=== PATIENT | male | born 1950 | race African-American/Black ===

== ENCOUNTER 2017-01-20 12:23 | Inpatient (IN) ==
[2017-01-20] MEDS ORDERED: LEVOFLOXACIN INJ 750 MG in PREMIX 1 EACH IV STA (12:54)
[2017-01-20] MEDS ORDERED: ALBUTEROL/IPRATROPIUM 3 ML NEB RESP TX STA (12:54)
[2017-01-20] MEDS ORDERED: ONDANSETRON 4 MG/2 ML VIAL IV STA (12:54)
[2017-01-20] MEDS ORDERED: methylPREDNISolone SOD SUC 40 MG/1 ML VIAL IM STA (12:54)
[2017-01-20] MEDS ORDERED: METOCLOPRAMIDE 10 MG/2 ML VIAL IV STA (12:54)
--- NOTE | 2017-01-20 13:01 | EKG Report ---
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
[2017-01-20] MEDS ORDERED: DILTIAZEM 50 MG/10 ML VIAL IV STA (13:06)
--- NOTE | 2017-01-20 13:09 | Emergency Department Note ---
Arrival - Arrival Stated Complaint: role out [facility] ED Nursing Triage Note: C/O HAVING COUGHING AND CONGESTION X 7 DAYS., STATES WAS EVALUATED BY ESTUARDO LAST EVENING AND WAS GIVEN LASIX IN THE OFFICE., STATES THE DIALYSIS NURSE TOLD HER TODAY THAT HE MAY HAVING PNEUMONIA ., + PRODUCTIVE COUGH, CURRENTLY BEING TX FOR LEFT EYE INFECTION Mode of Arrival: Wheelchair Time Seen by Provider: 01/20/17 12:54 - History of Present Illness HPI Narrative: This 66-year-old black male presents on referral from the dialysis center after his spin this morning to evaluate for pneumonia. The patient has had 1 week of cough productive of yellow-green sputum associated with intermittent wheezing and spiking temperatures. At dialysis he was noted to have a temperature of 102 and was sent here for further evaluation. He does not complain of any chest pain with this situation but does have some nausea but no vomiting. Currently he appears in no acute medical distress. Onset (ago): week(s) (Patient presents 1 week post onset of symptoms) Allergies/Adverse Reactions: Allergies Allergy/AdvReac Type Severity Reaction Status Date / Time No Known Allergies Allergy Verified 01/20/17 12:35 Home Medications: Home Medications Medication Instructions Recorded Confirmed Type Allopurinol [Zyloprim] 100 mg PO DAILY 12/12/14 02/16/16 History Aspirin [Ecotrin] 81 mg PO DAILY 12/12/14 02/16/16 History Atorvastatin [Lipitor] 40 mg PO DAILY 12/12/14 02/16/16 History Carvedilol [Coreg] 12.5 mg PO BID 12/12/14 02/16/16 History Hydralazine HCl 100 mg PO TID 12/12/14 02/16/16 History Insulin Glargine [Lantus] 40 units SUBCUT QPM 12/12/14 02/16/16 History Sevelamer HCl Tab [Renagel] 2,400 mg PO TID W/MEALS 12/12/14 02/16/16 History Losartan Potassium 100 mg PO DAILY 02/16/16 02/16/16 History cloNIDine TAB [Catapres Tab] 0.2 mg PO TID #90 tablet 02/16/16 Rx hydrOXYzine HCL TAB [Atarax Tab] 25 mg PO TID PRN 02/16/16 02/16/16 History Review of System - Review of System 12 point system: reviewed and no additional remarkable complaints except as stated - Review of System Constitutional: Present: as per HPI Respiratory: Present: as per HPI Gastrointestinal: Present: as per HPI Medical,Surgical,& Family Hx - Medical History Cardio: History of: Cardiac Dysrhythmia, CHF, Hypertension Neurology: History of: Peripheral Neuropathy (feet) No history of: Seizures HEENT: No history of: Dental Problems Comment Only: Eye Problem (detached retina) Endocrine: History of: Diabetes Mellitus (IDDM) Rheumatology: History of;: Gout Respiratory: History of: Intubation, Respiratory Problems (SOB) Renal: History of: Renal Failure, Renal Problems (RENAL FAILURE) Gastrointestinal: History of: GI Problems (CONSTIPATION) Hematology: History of: Anemia No history of: Bleeding Problems (FAMILY STATES BLEEDS DURING DIALYSIS) - Surgical History Cardiac Surgeries: Sugical HX of: Cardiac Catheterization Patient Denies: Cardiac Surgery (2014-09 stents) Neurologic Surgeries: Patient denies: Neurologic Surgery HEENT Surgeries: Surgical HX of: Eye Surgery (CATARACT, LASIC EYE SURGERY) Abdominal Surgeries: Patient denies: Abdominal Surgery, Appendectomy, Cholecystectomy, Colonoscopy , Gastric Bypass Surgery, EGD, Hernia Repair - Family History Family History: Reports;: Family Cancer (SISTER), Family Diabetes (MOTHER, sisters,aunts, nephew), Family Hypertension (MOTHER/FATHER), Family Stroke ( MOTHER/FATHER,) - Social History Smoking Status: Never smoker Frequency of Alcohol Use: None Type of Drug Use: None Exam Physical Examination: GENERAL: Well developed, well nourished black male in no acute distress. HEENT: Normocephalic. No trauma. Moist mucous membranes. EOMI. PERRLA. ENT NML NECK: Supple. No adenopathy. CARDIAC: Irregular. No murmurs. Heart rate 100 CHEST: Clear to auscultation. No respiratory distress. O2 sat 93% ABDOMEN: Soft. Nontender. Active bowel sounds. EXTREMITIES: No trauma. Normal ROM. No pedal edema. Left upper extremity fistula with good thrill. SKIN: No diaphoresis. No rash. NEURO: Alert. Neuro intact. No focal deficits. Vital Signs: Vital Signs Temperature 102.8 F H 01/20/17 12:30 Pulse Rate 111 H 01/20/17 13:46 Respiratory Rate 34 H 01/20/17 13:46 Blood Pressure 159/74 01/20/17 12:30 O2 Sat by Pulse Oximetry 97 01/20/17 13:46 Course - Reevaluation(s) Reevaluation #1: Advised patient need for hospitalization with new onset A. fib and pneumonia - Consultations Consultation #1: Discussed with hospitalist service who will admit for further evaluation treatment. Results - Labs CBC & BMP: 01/20/17 13:06 01/20/17 13:06 Labs: I reviewed the laboratory noted the expected low hematocrit and also noted the bump in troponins and total CK although the patient has elevated creatinine as expected with dialysis dependence. - Impressions EKG: Atrial fibrillation at 100 with right bundle branch block. Diffuse nonspecific ST changes. No acute injury pattern noted. - Diagnostic Findings Procedure: Chest x-ray: image reviewed by me, report reviewed by me (Right perihilar infiltrate) Disposition Clinical Impression: Right perihilar pneumonia, New onset atrial fibrillation Case discussed with: patient, patient's family Disposition: Still a Patient Condition: Guarded Time of Disposition: 14:14
[2017-01-20 13:29] LABS: Basophils % 0.2 % (0.0-0.8); Eosinophils % 0.5 % (0.00-10.9); Hematocrit 34.8 VOL% (42.0-52.0); Hemoglobin 11.9 GM/DL (14.0-18.0); Immature Granulocytes % 0.9 %; Immature Granulocytes Absolute 0.06 #; Lymphocytes # 0.5 10*3/uL (1.4-4.0); Lymphocytes % 8.2 % (21.2-54.2); Mean Corpuscular HGB Conc 34.2 GM/DL (32-36); Mean Corpuscular Hemoglobin 33 PG (27-34); Mean Corpuscular Volume 95.3 FL (87-102); Monocytes # 0.9 10*3/uL (0.11-0.8); Neutrophils # 5.1 10*3/uL (1.4-7.4); Neutrophils % 77.2 % (38.7-73.9); Platelet Count 133 T/CUMM (130-400); Red Blood Count 3.65 MC/CUMM (3.8-5.5); Red Cell Distribution Width 13.2 % (9.3-17.3); White Blood Count 6.6 T/CUMM (4-12)
[2017-01-20] MEDS ORDERED: LEVOFLOXACIN INJ 150 ML IV ONE (13:40)
[2017-01-20] MEDS ORDERED: METOCLOPRAMIDE 10 MG/2 ML VIAL ONE (13:40)
[2017-01-20] MEDS ORDERED: DILTIAZEM 50 MG/10 ML VIAL IV ONE (13:41)
[2017-01-20] MEDS ORDERED: methylPREDNISolone SOD SUC 125 MG/2 ML VIAL ONE (13:41)
[2017-01-20] MEDS ORDERED: ONDANSETRON 4 MG/2 ML VIAL ONE (13:41)
[2017-01-20 13:48] LABS: Platelet Estimate Adequate
[2017-01-20 13:49] LABS: Alanine Aminotransferase 22 U/L (16-61); Albumin 4.1 G/DL (3.4-5.0); Alkaline Phosphatase 238 U/L (45-117); Aspartate Amino Transferase 29 U/L (0-37); Blood Urea Nitrogen 21 MG/DL (7-18); Calcium 8.3 MG/DL (8.5-10.1); Glucose 50 MG/DL (74-106); Osmolality,Calculated 269.1 MOS/KG (273-304); Potassium 3.9 MMOL/L (3.5-5.1); Sodium 135 MMOL/L (136-145)
[2017-01-20 13:53] LABS: Free T4 (Free Thyroxine) 1.3 NG/DL (0.76-1.46); Thyroid Stimulating Hormone 0.591 uIU/ml (0.358-3.74)
[2017-01-20 13:58] LABS: Troponin I Only 0.231 NG/ML (0.00-0.045)
[2017-01-20] MEDS ORDERED: ACETAMINOPHEN 500 MG TABLET PO STA (14:08)
[2017-01-20] MEDS ORDERED: ACETAMINOPHEN 500 MG TABLET ONE (14:08)
--- NOTE | 2017-01-20 14:26 | Hospitalist History & Physical ---
<Melissa Rawlsda - Last Filed: 01/20/17 15:15> Assessment and Plan (1) Pneumonia Status: Acute Assessment and plan: Blood cultures have been obtained; will continue empiric antibiotics. Will re- check CXR in AM. Will start inhaled bronchodilators per nebulizer. Current Visit: Yes Qualifiers: Pneumonia type: due to unspecified organism Laterality: right Lung location: unspecified part of lung Qualified Code(s): J18.9 - Pneumonia, unspecified organism (2) Atrial fibrillation, new onset Status: Acute Assessment and plan: This is new in nature; none of his previous visit reflect this finding. His rate is controlled currently; however his troponin levels are elevated at 0.231. We will obtain serial enzymes. We will consult Cardiology to assist. Current Visit: Yes (3) Contusion/hemorrhage eye Status: Acute Assessment and plan: The patient reported that he sustained this injury on . He reports that he was evaluated by his eye doctor and told that it was "okay". Because the patient reports that he did strike his head and the gross appearance of his left eye, I will obtain CT of heat for good measures. Current Visit: Yes (4) ESRD (end stage renal disease) on dialysis Problem details: Usual schedule //. Status: Chronic Assessment and plan: HD earlier today; the patient reports completion. We will consult nephrology; Dr. Naranjo is his gem technician; he is on-call today. Current Visit: No (5) Insulin dependent diabetes mellitus Status: Acute Assessment and plan: Blood glucose was noted 50 at the time of ED arrival; will obtain HGA1C and start accuchecks with sliding scale coverage. Current Visit: Yes (6) Troponin I above reference range Status: Acute Assessment and plan: Troponin noted at 0.231; will obtain serial troponins x3. Will consult cardiology to evaluate. Current Visit: Yes History of Present Illness Chief complaint: cough and fever History of present illness: This is a very pleasant 66 year old male that presented to ED this afternoon for evaluation of cough and fever. The patient has a rather impressive medical history significant for hypertension, end-stage renal disease, congestive heart failure, peripheral neuropathy, gouty arthritis, anemia, constipation, and insulin-dependent diabetes mellitus. He has a surgical history significant for cataract removal and cardiac catheterization. The patient reported the onset of the above symptoms one week prior to presentation; with gradual worsening of symptoms. Today during his hemodialysis treatment, the nursing staff observed him coughing thick copious sputum green in color;at the conclusion of the treatment. The staff became concerned about his frequency and severity of his cough and advised him to present to the ED for further evaluation. Upon arrival to the ED, the patient was noted to febrile with a temperature of 102.8 and blood cultures were obtained. He was placed on the ct tech and was noted to be in atrial fibrillation; was acute upon review of previous medical records. Labs were obtained; which revealed a sodium level of 135, chloride level of 91, carbon dioxide of 34, BUN of 21, creatinine of 4.70, and glucose of 50. Cardiac enzymes were obtained which revealed a troponin of 0.231 and total CK of 362. Chest radiograph was obtained which revealed right perihilar infiltrate. In addition, the patient was noted to have gross erythema to his left eye, in which he attributed to a recent fall on . He reported that he tripped in his home; striking the left side of his head and eye on the end of a table. After brief discussion with both Dr. Campbell and Dr. Valdez, the patient will be admitted to the hospitalist service for continuation of care. We will consult Dr. Naranjo and Dr. Arthur, patient is known to both them. The patient's PCP is Dr. Tamayo in [place]. Home Medications Medication Instructions Recorded Confirmed Type Allopurinol [Zyloprim] 100 mg PO DAILY 12/12/14 01/20/17 History Aspirin [Ecotrin] 81 mg PO DAILY 12/12/14 01/20/17 History Atorvastatin [Lipitor] 40 mg PO DAILY 12/12/14 01/20/17 History Carvedilol [Coreg] 12.5 mg PO BID 12/12/14 01/20/17 History Insulin Glargine [Lantus] 40 units SUBCUT QPM 12/12/14 01/20/17 History Losartan Potassium 100 mg PO DAILY 02/16/16 01/20/17 History Cinacalcet [Sensipar] 30 mg PO DAILY 01/20/17 01/20/17 History NIFEdipine [Nifedipine ER] 60 mg PO DAILY 01/20/17 01/20/17 History Sevelamer Carbonate Tab [Renvela 2,400 mg PO TID 01/20/17 01/20/17 History Tab] Tobramycin/Dexamethasone 1 drop RIGHT EYE QID 01/20/17 01/20/17 History [Tobramycin/Dexamethasone Oph Susp] traZODone [Desyrel] 50 mg PO BEDTIME 01/20/17 01/20/17 History Allergies Allergy/AdvReac Type Severity Reaction Status Date / Time No Known Allergies Allergy Verified 01/20/17 12:35 Medical,Surgical,& Family Hx - Medical History Cardio: History of: Cardiac Dysrhythmia, CHF, Hypertension Neurology: History of: Peripheral Neuropathy (feet) No history of: Seizures HEENT: No history of: Dental Problems Comment Only: Eye Problem (detached retina) Endocrine: History of: Diabetes Mellitus (IDDM) Rheumatology: History of;: Gout Respiratory: History of: Intubation, Respiratory Problems (SOB) Renal: History of: Renal Failure, Renal Problems (RENAL FAILURE) Gastrointestinal: History of: GI Problems (CONSTIPATION) Hematology: History of: Anemia No history of: Bleeding Problems (FAMILY STATES BLEEDS DURING DIALYSIS) - Surgical History Cardiac Surgeries: Sugical HX of: Cardiac Catheterization Patient Denies: Cardiac Surgery (2014-09 stents) Neurologic Surgeries: Patient denies: Neurologic Surgery HEENT Surgeries: Surgical HX of: Eye Surgery (CATARACT, LASIC EYE SURGERY) Abdominal Surgeries: Patient denies: Abdominal Surgery, Appendectomy, Cholecystectomy, Colonoscopy , Gastric Bypass Surgery, EGD, Hernia Repair - Family History Family History: Reports;: Family Cancer (SISTER), Family Diabetes (MOTHER, sisters,aunts, nephew), Family Hypertension (MOTHER/FATHER), Family Stroke ( MOTHER/FATHER,) - Social History Smoking Status: Never smoker Frequency of Alcohol Use: None Type of Drug Use: None Marital Status: Lives With:: Spouse Functional capacity: independent ambulation Exam - Constitutional Vitals: Period Temp Pulse Resp BP Sys/Gao Pulse Ox Last 24 Hr 102.8 F-102.8 F 87-111 24-34 159-159/74-74 71-97 General appearance: normal weight, mild distress - Head Head exam: Present: normal inspection, normocephalic, atraumatic - Eye Eye exam: Present: other (hemorrhage ) Pupils: Present: BERNADETTE - ENT ENT exam: Present: normal exam, normal external ear exam, normal oropharynx - Neck Neck exam: Present: normal inspection, lymphadenopathy, meningismus, thyromegaly - Respiratory Respiratory exam: Present: decreased breath sounds, other - Cardiovascular Cardiovascular exam: Present: irregular rhythm (new onset a-fib ), other (L upper arm AVF +bruit/+thrill) - GI/Abdominal GI/Abdominal exam: Present: normal bowel sounds, soft - Extremities Exam Extremities exam: Present: normal inspection, normal capillary refill, full ROM , other (Left upper arm AVF; +bruit/thril) - Back Exam Back exam: Present: normal inspection - Neurological Exam Neurological exam: Present: alert, oriented X3, CN II-XII intact - Psychiatric Psychiatric exam: Present: normal affect, normal mood - Skin Skin exam: Present: normal color, warm, dry Results - Labs CBC & BMP: 01/20/17 13:06 01/20/17 13:06 Lab Results: I have reviewed the past 24 hour labs <Kalina Valdez - Last Filed: 01/20/17 15:49> Assessment and Plan (1) Atrial fibrillation, new onset Status: Acute Assessment and plan: cont coreg, will add dilt po and cont dilt drip, lovenox 100 mg sq daily Current Visit: Yes (2) Contusion/hemorrhage eye Status: Acute Assessment and plan: head ct shows nothing acute Current Visit: Yes (3) Insulin dependent diabetes mellitus Status: Acute Assessment and plan: hgb a1c, bs low hold scheduled insulin, ISC Current Visit: Yes (4) Pneumonia Status: Acute Assessment and plan: cont levaquin and vancomycin (at risk for MRSA), duonebs and oxygen Current Visit: Yes Qualifiers: Pneumonia type: due to unspecified organism Laterality: right Lung location: unspecified part of lung Qualified Code(s): J18.9 - Pneumonia, unspecified organism (5) Troponin I above reference range Status: Acute Assessment and plan: probably due to strain from new onset afib Current Visit: Yes (6) ESRD (end stage renal disease) on dialysis Problem details: Usual schedule /. Status: Chronic Current Visit: No (7) Hypertension Status: Acute Assessment and plan: cont coreg, will add dilt po Current Visit: Yes (8) Severe sepsis Status: Acute Assessment and plan: blood cx, abx, draw lactic acid. Current Visit: Yes History of Present Illness History of present illness: Mr. Leigh is a 66 year old male seen and examined. History and physical reviewed and edited. - Constitutional Constitutional: Present: fatigue, fever(s). Absent: headache(s) - EENT Eyes: Absent: blurry vision, diplopia Ears: Absent: decreased hearing, ear discharge Nose, mouth and throat: Present: sore throat. Absent: headache(s) - Cardiovascular Cardiovascular: Present: dyspnea, dyspnea on exertion. Absent: chest pain at rest, edema - Respiratory Respiratory: Present: cough, dyspnea, dyspnea on exertion, change in phlegm color - Gastrointestinal Gastrointestinal: Absent: nausea, vomiting - Genitourinary Genitourinary: Absent: difficulty urinating, dysuria - Neurological Neurological: Absent: confusion, headache(s), syncope - Psychiatric Psychiatric: Absent: anxiety, depression - Endocrine Endocrine: Present: fatigue, heat intolerance. Absent: cold intolerance - Hematologic/Lymphatic Hematologic/Lymphatic: Absent: easy bleeding, easy bruising Exam - Constitutional Vitals: Period Temp Pulse Resp BP Sys/Gao Pulse Ox Last 24 Hr 102.8 F-102.8 F 87-111 24-34 159-159/74-74 71-97 - Eye Eye exam: Present: EOMI. Absent: scleral icterus Pupils: Present: normal accommodation - Neurological Exam Neurological exam: Present: reflexes normal. Absent: motor sensory deficit Results - Labs CBC & BMP: 01/20/17 13:06 01/20/17 13:06 - EKG EKG shows: tachycardia, atrial fibrillation - Diagnostic Findings Procedure: Chest x-ray: report reviewed by me (pulmonary edema )
--- NOTE | 2017-01-20 14:50 | XRay Report ---
History: Shortness of breath Date: 01/20/2017 Study: Chest x-ray AP portable Comparison exam: December 12, 2014 There is cardiomegaly. The pulmonary vasculature is slightly prominent. There is no mediastinal mass. There is some mild hazy edema in the lower lungs. There is no gross pleural effusion. Osseous structures are similar. Vascular stents overlie the left axillary vein region. Impression: Cardiomegaly and evidence of CHF with some early bibasilar pulmonary edema PROCEDURE INTERPRETED AT [facility] DEPARTMENT OF RADIOLOGY Final Report Signed by: Dr. Audrey Quezada
[2017-01-20] MEDS ORDERED: VANCOMYCIN INJ 750 MG in SODIUM CHLORIDE 0.9% 250 ML IV PRN (15:00)
[2017-01-20] MEDS ORDERED: DEXTROSE 50% 25 GM/50 ML VIAL IV ONE (15:19)
[2017-01-20] MEDS ORDERED: ALBUTEROL 2.5 MG/3 ML NEB RESP TX PRN (15:31)
[2017-01-20] MEDS ORDERED: DEXTROSE 50% 25 GM/50 ML VIAL IV PRN ×3 (15:33→16:09)
[2017-01-20] MEDS ORDERED: GLUCAGON 1 MG VIAL IM PRN ×3 (15:33→16:09)
--- NOTE | 2017-01-20 15:37 | CT Report ---
History: Recent fall with left eye injury Date: 01/20/2017 Study: CT head without contrast Comparison exam: May 30, [address] sections were obtained through the head without IV contrast. This CT exam was performed using one or more the following dose reduction techniques: Automated exposure control, adjustment of the MA and/or KV according to patient size, or use of iterative reconstruction technique. The ventricles are midline in position. There is some mild prominence of all ventricles which may be related to central atrophy, though normal pressure hydrocephalus would also be included in the differential diagnosis. This is fairly similar or only mildly increased compared to the May 30, 2012 study. There is no mass effect or parenchymal hemorrhage. There is no gross CT evidence of acute cortical stroke. There is a mild to moderate amount of ill-defined low density in the periventricular white matter without mass effect compatible with changes of small vessel disease. There is a small area of chronic lacunar infarction in the michel centrally. There is no extra-axial hematoma. There is moderate mucosal thickening in the ethmoid air cells and mild mucosal thickening in the sphenoid sinuses. There is a moderate amount of sinus disease, mucosal thickening with or without fluid, in the left maxillary sinus with mild changes in the right. Impression: Mild ventricular prominence may be related to central atrophy rather than normal pressure hydrocephalus. This has not dramatically changed since 2011. Chronic ischemic changes. No definite acute intracranial process. Sinus disease which may have chronic and acute components PROCEDURE INTERPRETED AT [facility] DEPARTMENT OF RADIOLOGY Final Report Signed by: Dr. Audrey Quezada
[2017-01-20] MEDS ORDERED: LEVOFLOXACIN INJ 750 MG in PREMIX 1 EACH IV SCH (16:00)
[2017-01-20] MEDS ORDERED: ACETAMINOPHEN 325 MG TABLET PO PRN (16:09)
[2017-01-20] MEDS ORDERED: ZALEPLON 5 MG CAPSULE PO PRN (16:09)
[2017-01-20] MEDS ORDERED: ONDANSETRON 4 MG/2 ML VIAL IV PRN (16:09)
[2017-01-20] MEDS ORDERED: INSULIN REGULAR 100 UNIT/ML SUBCUT SCH (16:30)
[2017-01-20] MEDS: INSULIN LISPRO 100 UNIT/ML SUBCUT SCH ×2 (16:37→20:53)
[2017-01-20] MEDS: ENOXAPARIN 100 MG/ML SYRINGE SUBCUT SCH (17:00)
[2017-01-20] MEDS: DILTIAZEM CD 120 MG CAPSULE PO SCH (17:00)
[2017-01-20] MEDS ORDERED: VANCOMYCIN INJ 1,500 MG in SODIUM CHLORIDE 0.9% 500 ML IV ONE (17:00)
[2017-01-20] MEDS: PANTOPRAZOLE 40 MG TABLET PO SCH (17:00)
[2017-01-20 17:21] LABS: Thyroid Stimulating Hormone 0.833 uIU/ml (0.358-3.74)
--- NOTE | 2017-01-20 18:44 | Cardiology Consult Note ---
Assessment and Plan (1) Pneumonia Status: Acute Current Visit: Yes Qualifiers: Pneumonia type: due to unspecified organism Laterality: right Lung location: unspecified part of lung Qualified Code(s): J18.9 - Pneumonia, unspecified organism (2) Atrial fibrillation, new onset Status: Acute Current Visit: Yes (3) ESRD (end stage renal disease) on dialysis Problem details: Usual schedule //. Status: Chronic Current Visit: No (4) Contusion/hemorrhage eye Status: Acute Current Visit: Yes (5) Insulin dependent diabetes mellitus Status: Chronic Current Visit: Yes (6) Troponin I above reference range Status: Chronic Current Visit: Yes (7) Hypertension Status: Chronic Current Visit: Yes (8) Pulmonary hypertension Status: Chronic Current Visit: Yes History of Present Illness - Data of Consult Patient: known to practice within the last 3 years Consult date: 01/20/17 Requesting Physician: Kalina Valdez - Consult Narrative Reason for consult: A. 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 Arthur Mr. Leigh is a 66 year old male without a history of coronary artery disease, end-stage renal disease on hemodialysis, hypertension. Possibly a history of cardiomyopathy. Last reports from Dr. Arthur, including a heart catheterization last year describe a normal systolic function. He was evaluated with left and right heart catheterization for pulmonary hypertension. This was in preparation for possible renal transplantation. The patient was basically admitted for pneumonia. He had been experiencing increasing dyspnea, cough, chills. His cough is productive of a dark, rees sputum. Upon admission he was found to be in atrial fibrillation with rapid ventricular response. He has no documentation of this arrhythmia, does not take anticoagulation. He has no awareness of palpitations or irregularities. He denies experiencing any chest pain. He has chronic stable 1-2 pillow orthopnea. Other than this illness, he has not had any other recent acute illnesses. He does not have gait instability, history of peptic ulcer disease or GI bleeding. He did recently fall when he got up in the middle of the night and hit his left eye, he has some scleral hemorrhage from this. Impression and plan: 1. Pneumonia-being treated by the hospitalist service. 2. Atrial fibrillation with rapid ventricular response-he is currently rate controlled. The duration and chronicity are unknown. He is being anticoagulated. We will need to watch his left eye on this anticoagulation. Likely he will need this anticoagulation long-term. 3. End-stage renal disease-on chronic hemodialysis. 4. Abnormal cardiac biomarkers-this is chronic, these are lower than normal for him. 5. Hypertension 6. Hyperlipidemia 7. Pulmonary hypertension CC: Kalina Valdez MD - Home Medications and Allergies Home Medications: Home Medications Medication Instructions Recorded Confirmed Type Allopurinol [Zyloprim] 100 mg PO DAILY 12/12/14 01/20/17 History Aspirin [Ecotrin] 81 mg PO DAILY 12/12/14 01/20/17 History Atorvastatin [Lipitor] 40 mg PO DAILY 12/12/14 01/20/17 History Carvedilol [Coreg] 12.5 mg PO BID 12/12/14 01/20/17 History Insulin Glargine [Lantus] 40 units SUBCUT QPM 12/12/14 01/20/17 History Losartan Potassium 100 mg PO DAILY 02/16/16 01/20/17 History Cinacalcet [Sensipar] 30 mg PO DAILY 01/20/17 01/20/17 History NIFEdipine [Nifedipine ER] 60 mg PO DAILY 01/20/17 01/20/17 History Sevelamer Carbonate Tab [Renvela 2,400 mg PO TID 01/20/17 01/20/17 History Tab] Tobramycin/Dexamethasone 1 drop RIGHT EYE QID 01/20/17 01/20/17 History [Tobramycin/Dexamethasone Oph Susp] traZODone [Desyrel] 50 mg PO BEDTIME 01/20/17 01/20/17 History Allergies/Adverse Reactions: Allergies Allergy/AdvReac Type Severity Reaction Status Date / Time No Known Allergies Allergy Verified 01/20/17 12:35 12 point system: reviewed and no additional remarkable complaints except as stated Medical,Surgical,& Family Hx - Medical History Cardio: History of: Cardiac Dysrhythmia, CHF, Hypertension Neurology: History of: Peripheral Neuropathy (feet) No history of: Seizures HEENT: No history of: Dental Problems Comment Only: Eye Problem (detached retina) Endocrine: History of: Diabetes Mellitus (IDDM), Dyslipidemia, Thyroid Disorder Rheumatology: History of;: Gout Respiratory: History of: Intubation, Respiratory Problems (SOB) Renal: History of: Dialysis (TTS in [place]), Renal Failure, Renal Problems ( RENAL FAILURE) Gastrointestinal: History of: GI Problems (CONSTIPATION) Hematology: History of: Anemia No history of: Bleeding Problems (FAMILY STATES BLEEDS DURING DIALYSIS) - Surgical History Cardiac Surgeries: Sugical HX of: Cardiac Catheterization Patient Denies: Cardiac Surgery Neurologic Surgeries: Patient denies: Neurologic Surgery HEENT Surgeries: Surgical HX of: Eye Surgery (CATARACT, LASIC EYE SURGERY) Abdominal Surgeries: Patient denies: Abdominal Surgery, Appendectomy, Cholecystectomy, Colonoscopy , Gastric Bypass Surgery, EGD, Hernia Repair - Family History Family History: Reports;: Family Cancer (SISTER), Family Diabetes (MOTHER, sisters,aunts, nephew), Family Hypertension (MOTHER/FATHER), Family Stroke ( MOTHER/FATHER,) - Social History Smoking Status: Never smoker Frequency of Alcohol Use: None Type of Drug Use: None Physical Examination Vital Signs Temp Pulse Resp BP Pulse Ox 102.8 F H 102 H 24 159/74 71 L 01/20/17 12:30 01/20/17 12:30 01/20/17 12:30 01/20/17 12:30 01/20/17 12:30 Other: General appearance: normal weight, no acute distress - Head Head exam: Present: normal inspection, normocephalic, atraumatic. Absent: hematoma, laceration - Eye Eye exam: Present: EOMI. left scleral hemorrhage. Absent: nystagmus, scleral icterus, laceration to eyelids Pupils: Present: PERRL. Absent: constricted, dilated, fixed, irregular, unequal - ENT ENT exam: Present: normal exam, normal external ear exam - Neck Neck exam: Present: normal inspection. Absent: lymphadenopathy, meningismus, tenderness, thyromegaly - Respiratory Respiratory exam: Present: clear to auscultation bilaterally. Absent: accessory muscle use, chest wall tenderness - Cardiovascular Cardiovascular exam: Present: regular rate and rhythm. Absent: carotid bruit, gallop, JVD, rubs - GI/Abdominal GI/Abdominal exam: Present: normal bowel sounds, soft. Absent: distended, firm , guarding, hernia, mass, tenderness, rebound. - Extremities Exam Extremities exam: Present: 1+ bilateral lower extremity edema. Absent: calf tenderness - Back Exam Back exam: Present: normal inspection. Absent: muscle spasm, vertebral tenderness - Neurological Exam Neurological exam: Present: alert, oriented X3, grossly intact without resting or intention tremor - Psychiatric Psychiatric exam: Present: normal affect, normal mood - Skin Skin exam: Present: normal color, warm, dry, intact. Absent: cyanosis, diaphoretic, rash, urticaria Result/EKG - Labs CBC & BMP: 01/20/17 13:06 01/20/17 13:06 Lab Results: I have reviewed the past 24 hour labs Labs: Laboratory Results - last 24 hr 01/20/17 01/20/17 01/20/17 13:06 13:06 13:06 WBC 6.6 RBC 3.65 L Hgb 11.9 L Hct 34.8 L MCV 95.3 MCH 33 MCHC 34.2 RDW 13.2 Plt Count 133 MPV 11.0 Neut % (Auto) 77.2 H Lymph % (Auto) 8.2 L [place] % (Auto) 13.0 H Eos % (Auto) 0.5 Baso % (Auto) 0.2 Neut # (Auto) 5.1 Lymph # (Auto) 0.5 L [place] # (Auto) 0.9 H Eos # (Auto) 0.0 Baso # (Auto) 0.0 Immature Gran % 0.9 Nucleated RBC % 0.0 Immature Gran # 0.06 Nucleated RBCs # 0.00 Platelet Estimate Adequate Morphology Comment Sodium 135 L Potassium 3.9 Chloride 91 L Carbon Dioxide 34 H Anion Gap 13.9 BUN 21 H Creatinine 4.70 H GFR Calculation 17 BUN/Creatinine Ratio 4.00 L Glucose 50 L POC Glucose Hemoglobin A1c Calculated Osmolality 269.1 L Lactic Acid Calcium 8.3 L Magnesium Total Bilirubin 1.20 H AST 29 ALT 22 Alkaline Phosphatase 238 H Total Creatine Kinase 362 H CK-MB (CK-2) 1.1 Troponin I 0.231 H Total Protein 8.0 Albumin 4.1 Globulin 3.9 H Albumin/Globulin Ratio 1.0 L Free T4 1.30 TSH 3rd Generation 0.591 01/20/17 01/20/17 01/20/17 13:06 16:19 16:32 WBC RBC Hgb Hct MCV MCH MCHC RDW Plt Count MPV Neut % (Auto) Lymph % (Auto) [place] % (Auto) Eos % (Auto) Baso % (Auto) Neut # (Auto) Lymph # (Auto) [place] # (Auto) Eos # (Auto) Baso # (Auto) Immature Gran % Nucleated RBC % Immature Gran # Nucleated RBCs # Platelet Estimate Morphology Comment Sodium Potassium Chloride Carbon Dioxide Anion Gap BUN Creatinine GFR Calculation BUN/Creatinine Ratio Glucose POC Glucose 153 H Hemoglobin A1c 8.6 H Calculated Osmolality Lactic Acid 1.1 Calcium Magnesium Total Bilirubin AST ALT Alkaline Phosphatase Total Creatine Kinase CK-MB (CK-2) Troponin I Total Protein Albumin Globulin Albumin/Globulin Ratio Free T4 TSH 3rd Generation 01/20/17 01/20/17 01/20/17 16:33 16:33 16:33 WBC RBC Hgb Hct MCV MCH MCHC RDW Plt Count MPV Neut % (Auto) Lymph % (Auto) [place] % (Auto) Eos % (Auto) Baso % (Auto) Neut # (Auto) Lymph # (Auto) [place] # (Auto) Eos # (Auto) Baso # (Auto) Immature Gran % Nucleated RBC % Immature Gran # Nucleated RBCs # Platelet Estimate Morphology Comment Sodium Potassium Chloride Carbon Dioxide Anion Gap BUN Creatinine GFR Calculation BUN/Creatinine Ratio Glucose POC Glucose Hemoglobin A1c Calculated Osmolality Lactic Acid Calcium Magnesium 2.0 Total Bilirubin AST ALT Alkaline Phosphatase Total Creatine Kinase CK-MB (CK-2) Troponin I 0.318 H D Total Protein Albumin Globulin Albumin/Globulin Ratio Free T4 1.27 TSH 3rd Generation 0.833 - Diagnostic Findings Procedure: Chest x-ray: report reviewed by me - EKG EKG results: interpreted by me EKG shows: atrial fibrillation
[2017-01-20] MEDS: ALBUTEROL/IPRATROPIUM 3 ML NEB RESP TX SCH ×2 (19:04→23:51)
[2017-01-21] MEDS: ALBUTEROL/IPRATROPIUM 3 ML NEB RESP TX SCH ×6 (02:39→23:39)
[2017-01-21 08:15] LABS: Basophils % 0.2 % (0.0-0.8); Hematocrit 34.4 VOL% (42.0-52.0); Hemoglobin 11.7 GM/DL (14.0-18.0); Immature Granulocytes Absolute 0.05 #; Lymphocytes # 0.5 10*3/uL (1.4-4.0); Lymphocytes % 10.7 % (21.2-54.2); Mean Corpuscular Hemoglobin 33 PG (27-34); Mean Corpuscular Volume 96.6 FL (87-102); Mean Platelet Volume 11.6 FL (9.6-12.0); Monocytes # 0.5 10*3/uL (0.11-0.8); Monocytes % 9.3 % (1.7-12.7); Neutrophils % 78.8 % (38.7-73.9); Platelet Count 114 T/CUMM (130-400); Red Blood Count 3.56 MC/CUMM (3.8-5.5); Red Cell Distribution Width 13.2 % (9.3-17.3)
[2017-01-21] MEDS: DILTIAZEM CD 120 MG CAPSULE PO SCH (09:07)
--- NOTE | 2017-01-21 09:07 | EKG Report ---
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
[2017-01-21] MEDS: PANTOPRAZOLE 40 MG TABLET PO SCH (09:08)
[2017-01-21] MEDS: INSULIN LISPRO 100 UNIT/ML SUBCUT SCH ×4 (09:08→21:47)
--- NOTE | 2017-01-21 10:42 | Nephrology Consult Note ---
History of Present Illness Chief complaint: esrd History of present illness: Mr. Leigh is a 66 year old male and was admitted for treatment of presumed pneumonia. There are changes particularly at the right base on chest x-ray suggestive of infiltrate. He also was found to be in atrial fibrillation with rapid ventricular response on admission. He was not experiencing palpitations He has a left upper arm dialysis access that is noninfected appearing his chest is clear with exception of crackles over the right base. His abdomen is soft. He has no peripheral edema. Heart rhythm is currently regular Blood cultures are pending. White blood cell count is 6000. Impression: Pneumonia/bronchitis with productive cough. End-stage renal disease. Atrial fibrillation, new onset Plan: We will support with Sunday dialysis. Home Medications Medication Instructions Recorded Confirmed Type Allopurinol [Zyloprim] 100 mg PO DAILY 12/12/14 01/20/17 History Aspirin [Ecotrin] 81 mg PO DAILY 12/12/14 01/20/17 History Atorvastatin [Lipitor] 40 mg PO DAILY 12/12/14 01/20/17 History Carvedilol [Coreg] 12.5 mg PO BID 12/12/14 01/20/17 History Insulin Glargine [Lantus] 40 units SUBCUT QPM 12/12/14 01/20/17 History Losartan Potassium 100 mg PO DAILY 02/16/16 01/20/17 History Cinacalcet [Sensipar] 30 mg PO DAILY 01/20/17 01/20/17 History NIFEdipine [Nifedipine ER] 60 mg PO DAILY 01/20/17 01/20/17 History Sevelamer Carbonate Tab [Renvela 2,400 mg PO TID 01/20/17 01/20/17 History Tab] Tobramycin/Dexamethasone 1 drop RIGHT EYE QID 01/20/17 01/20/17 History [Tobramycin/Dexamethasone Oph Susp] traZODone [Desyrel] 50 mg PO BEDTIME 01/20/17 01/20/17 History Allergies Allergy/AdvReac Type Severity Reaction Status Date / Time No Known Allergies Allergy Verified 01/20/17 12:35 Medical,Surgical,& Family Hx - Medical History Cardio: History of: Cardiac Dysrhythmia, CHF, Hypertension Neurology: History of: Peripheral Neuropathy (feet) No history of: Seizures HEENT: No history of: Dental Problems Comment Only: Eye Problem (detached retina) Endocrine: History of: Diabetes Mellitus (IDDM), Dyslipidemia, Thyroid Disorder Rheumatology: History of;: Gout Respiratory: History of: Intubation, Respiratory Problems (SOB) Renal: History of: Dialysis (TTS in [place]), Renal Failure, Renal Problems ( RENAL FAILURE) Gastrointestinal: History of: GI Problems (CONSTIPATION) Hematology: History of: Anemia No history of: Bleeding Problems (FAMILY STATES BLEEDS DURING DIALYSIS) - Surgical History Cardiac Surgeries: Sugical HX of: Cardiac Catheterization Patient Denies: Cardiac Surgery Neurologic Surgeries: Patient denies: Neurologic Surgery HEENT Surgeries: Surgical HX of: Eye Surgery (CATARACT, LASIC EYE SURGERY) Abdominal Surgeries: Patient denies: Abdominal Surgery, Appendectomy, Cholecystectomy, Colonoscopy , Gastric Bypass Surgery, EGD, Hernia Repair - Family History Family History: Reports;: Family Cancer (SISTER), Family Diabetes (MOTHER, sisters,aunts, nephew), Family Hypertension (MOTHER/FATHER), Family Stroke ( MOTHER/FATHER,) - Social History Smoking Status: Never smoker Frequency of Alcohol Use: None Type of Drug Use: None Review of Systems 12 point system: reviewed and no additional remarkable complaints except as stated Exam - Vital Signs Vital signs: Period Temp Pulse Resp BP Sys/Gao Pulse Ox Last 24 Hr 97.9 F-102.8 F 82-111 16-34 137-179/64-90 71-98 - General Appearance General appearance: well-developed, well-nourished, appears started age EENT: ATNC Neck: no JVD, no thyromegaly, no carotid bruit, supple Respiratory: no kyphosis, no scoliosis Cardiology: no murmurs, no rub, no gallops, no edema, regular rate, regular rhythm, normal S1, normal S2 Gastrointestinal: normoactive bowel sounds Integumentary: no rash, warm and dry Neurologic: no focal deficit, no asterixis, alert and oriented x3, reflexes 2+ and symmetric, gait normal, strength 5/5 Musculoskeletal: no deformities, no erythema, no cyanosis, no clubbing Psychiatric: mood/affect appropriate, cooperative Results - Labs CBC & BMP: 01/21/17 07:37 01/20/17 13:06 Assessment and Plan (1) ESRD (end stage renal disease) on dialysis Problem details: Usual schedule //. Status: Chronic Current Visit: No (2) Atrial fibrillation, new onset Status: Acute Current Visit: Yes (3) Pneumonia Status: Acute Current Visit: Yes Qualifiers: Pneumonia type: due to unspecified organism Laterality: right Lung location: unspecified part of lung Qualified Code(s): J18.9 - Pneumonia, unspecified organism Specialty Discharge - Follow Up or Referrals - Speciality Discharge Instructions Nephrology Instructions: Sunday hemodialysis.
--- NOTE | 2017-01-21 11:21 | XRay Report ---
History: Shortness of breath Date: 01/21/2017 Study: Chest x-ray PA and lateral Comparison exam: 01/20/2017 There is continued cardiomegaly. The mediastinal contour is unchanged. The pulmonary vasculature is upper normal, though improved. There is no layering pleural effusion. There is improved aeration in the lower lungs. There is mild platelike subsegmental atelectasis in either mid to lower lung on the current exam. There is no new or worsening infiltrate. Osseous structures are similar. Impression: Cardiomegaly and improving pulmonary venous hypertension. Reduced pulmonary edema. Mild platelike atelectasis mid to lower lungs bilaterally PROCEDURE INTERPRETED AT [facility] DEPARTMENT OF RADIOLOGY Final Report Signed by: Dr. Audrey Quezada
--- NOTE | 2017-01-21 12:28 | Cardiology Progress Note ---
Assessment and Plan (1) Pneumonia Status: Acute Current Visit: Yes Qualifiers: Pneumonia type: due to unspecified organism Laterality: right Lung location: unspecified part of lung Qualified Code(s): J18.9 - Pneumonia, unspecified organism (2) Atrial fibrillation, new onset Status: Acute Current Visit: Yes (3) ESRD (end stage renal disease) on dialysis Problem details: Usual schedule //. 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 Arthur Mr. Leigh is a 66 year old male without a history of coronary artery disease, end-stage renal disease on hemodialysis, hypertension. Possibly a history of cardiomyopathy. Last reports from Dr. Arthur, including a heart catheterization last year describe a normal systolic function. He was evaluated with left and right heart catheterization for pulmonary hypertension. This was in preparation for possible renal transplantation. The patient was basically admitted for pneumonia. Upon admission he was found to be in atrial fibrillation with rapid ventricular response. He has no documentation of this arrhythmia, does not take anticoagulation. He has no awareness of palpitations or irregularities. No clear contraindication to anticoagulation. January 13, 2017: The patient appears to be improving clinically. He denies any chest pain or shortness of breath. He has been in a sinus rhythm. Impression and plan: 1. Pneumonia-being treated by the hospitalist service. 2. Atrial fibrillation with rapid ventricular response-he is currently in normal sinus rhythm. I am going to increase his calcium channel yulisa to assist with blood pressure control. The duration and chronicity are unknown. He is being anticoagulated. We will need to watch his left eye on this anticoagulation. Likely he will need this anticoagulation long-term. 3. End-stage renal disease-on chronic hemodialysis. 4. Abnormal cardiac biomarkers-this is chronic, these are lower than normal for him. 5. Hypertension-increase calcium channel yulisa. 6. Hyperlipidemia 7. Pulmonary hypertension Exam (Progress Note) - Constitutional Vitals: Period Temp Pulse Resp BP Sys/Gao Pulse Ox Last 24 Hr 97.9 F-102.8 F 82-111 16-34 137-179/64-90 71-98 Exam: General appearance: normal weight, no acute distress - Head Head exam: Present: normal inspection, normocephalic, atraumatic. Absent: hematoma, laceration - Eye Eye exam: Present: EOMI. sclera on the left side is injected with hemorrhage, although slightly improved from yesterday. Pupils: Present: PERRL. Absent: constricted, dilated, fixed, irregular, unequal - ENT ENT exam: Present: normal exam, normal external ear exam - Neck Neck exam: Present: normal inspection. Absent: lymphadenopathy, meningismus, tenderness, thyromegaly - Respiratory Respiratory exam: Present: Scant basilar crackles right greater than left. Absent: accessory muscle use, chest wall tenderness - Cardiovascular Cardiovascular exam: Present: regular rate and rhythm. Absent: carotid bruit, gallop, JVD, rubs - GI/Abdominal GI/Abdominal exam: Present: normal bowel sounds, soft. Absent: distended, firm , guarding, hernia, mass, tenderness, rebound. - Extremities Exam Extremities exam: Present: Decreased pulses in the bilateral lower extremities. Absent: calf tenderness, edema - Back Exam Back exam: Present: normal inspection. Absent: muscle spasm, vertebral tenderness - Neurological Exam Neurological exam: Present: alert, oriented X3, grossly intact without resting or intention tremor - Psychiatric Psychiatric exam: Present: normal affect, normal mood - Skin Skin exam: Present: normal color, warm, dry, intact. Absent: cyanosis, diaphoretic, rash, urticaria Result/EKG - Labs CBC & BMP: 01/21/17 07:37 01/20/17 13:06 Lab Results: I have reviewed the past 24 hour labs Labs: Laboratory Results - last 24 hr 01/20/17 01/20/17 01/20/17 13:06 13:06 13:06 WBC 6.6 RBC 3.65 L Hgb 11.9 L Hct 34.8 L MCV 95.3 MCH 33 MCHC 34.2 RDW 13.2 Plt Count 133 MPV 11.0 Neut % (Auto) 77.2 H Lymph % (Auto) 8.2 L [place] % (Auto) 13.0 H Eos % (Auto) 0.5 Baso % (Auto) 0.2 Neut # (Auto) 5.1 Lymph # (Auto) 0.5 L [place] # (Auto) 0.9 H Eos # (Auto) 0.0 Baso # (Auto) 0.0 Immature Gran % 0.9 Nucleated RBC % 0.0 Immature Gran # 0.06 Nucleated RBCs # 0.00 Platelet Estimate Adequate Morphology Comment Sodium 135 L Potassium 3.9 Chloride 91 L Carbon Dioxide 34 H Anion Gap 13.9 BUN 21 H Creatinine 4.70 H GFR Calculation 17 BUN/Creatinine Ratio 4.00 L Glucose 50 L POC Glucose Hemoglobin A1c Calculated Osmolality 269.1 L Lactic Acid Calcium 8.3 L Magnesium Total Bilirubin 1.20 H AST 29 ALT 22 Alkaline Phosphatase 238 H Total Creatine Kinase 362 H CK-MB (CK-2) 1.1 Troponin I 0.231 H B-Natriuretic Peptide Total Protein 8.0 Albumin 4.1 Globulin 3.9 H Albumin/Globulin Ratio 1.0 L Free T4 1.30 TSH 3rd Generation 0.591 01/20/17 01/20/17 01/20/17 13:06 16:19 16:32 WBC RBC Hgb Hct MCV MCH MCHC RDW Plt Count MPV Neut % (Auto) Lymph % (Auto) [place] % (Auto) Eos % (Auto) Baso % (Auto) Neut # (Auto) Lymph # (Auto) [place] # (Auto) Eos # (Auto) Baso # (Auto) Immature Gran % Nucleated RBC % Immature Gran # Nucleated RBCs # Platelet Estimate Morphology Comment Sodium Potassium Chloride Carbon Dioxide Anion Gap BUN Creatinine GFR Calculation BUN/Creatinine Ratio Glucose POC Glucose 153 H Hemoglobin A1c 8.6 H Calculated Osmolality Lactic Acid 1.1 Calcium Magnesium Total Bilirubin AST ALT Alkaline Phosphatase Total Creatine Kinase CK-MB (CK-2) Troponin I B-Natriuretic Peptide Total Protein Albumin Globulin Albumin/Globulin Ratio Free T4 TSH 3rd Generation 01/20/17 01/20/17 01/20/17 16:33 16:33 16:33 WBC RBC Hgb Hct MCV MCH MCHC RDW Plt Count MPV Neut % (Auto) Lymph % (Auto) [place] % (Auto) Eos % (Auto) Baso % (Auto) Neut # (Auto) Lymph # (Auto) [place] # (Auto) Eos # (Auto) Baso # (Auto) Immature Gran % Nucleated RBC % Immature Gran # Nucleated RBCs # Platelet Estimate Morphology Comment Sodium Potassium Chloride Carbon Dioxide Anion Gap BUN Creatinine GFR Calculation BUN/Creatinine Ratio Glucose POC Glucose Hemoglobin A1c Calculated Osmolality Lactic Acid Calcium Magnesium 2.0 Total Bilirubin AST ALT Alkaline Phosphatase Total Creatine Kinase CK-MB (CK-2) Troponin I 0.318 H D B-Natriuretic Peptide Total Protein Albumin Globulin Albumin/Globulin Ratio Free T4 1.27 TSH 3rd Generation 0.833 01/20/17 01/20/17 01/20/17 19:33 20:01 22:46 WBC RBC Hgb Hct MCV MCH MCHC RDW Plt Count MPV Neut % (Auto) Lymph % (Auto) [place] % (Auto) Eos % (Auto) Baso % (Auto) Neut # (Auto) Lymph # (Auto) [place] # (Auto) Eos # (Auto) Baso # (Auto) Immature Gran % Nucleated RBC % Immature Gran # Nucleated RBCs # Platelet Estimate Morphology Comment Sodium Potassium Chloride Carbon Dioxide Anion Gap BUN Creatinine GFR Calculation BUN/Creatinine Ratio Glucose POC Glucose 323 H Hemoglobin A1c Calculated Osmolality Lactic Acid Calcium Magnesium Total Bilirubin AST ALT Alkaline Phosphatase Total Creatine Kinase CK-MB (CK-2) Troponin I 0.358 H 0.391 H B-Natriuretic Peptide Total Protein Albumin Globulin Albumin/Globulin Ratio Free T4 TSH 3rd Generation 01/21/17 01/21/17 07:37 07:37 WBC 5.0 RBC 3.56 L Hgb 11.7 L Hct 34.4 L MCV 96.6 MCH 33 MCHC 34.0 RDW 13.2 Plt Count 114 L MPV 11.6 Neut % (Auto) 78.8 H Lymph % (Auto) 10.7 L [place] % (Auto) 9.3 Eos % (Auto) 0.0 Baso % (Auto) 0.2 Neut # (Auto) 4.0 Lymph # (Auto) 0.5 L [place] # (Auto) 0.5 Eos # (Auto) 0.0 Baso # (Auto) 0.0 Immature Gran % 1.0 Nucleated RBC % 0.0 Immature Gran # 0.05 Nucleated RBCs # 0.00 Platelet Estimate Morphology Comment Sodium Potassium Chloride Carbon Dioxide Anion Gap BUN Creatinine GFR Calculation BUN/Creatinine Ratio Glucose POC Glucose Hemoglobin A1c Calculated Osmolality Lactic Acid Calcium Magnesium Total Bilirubin AST ALT Alkaline Phosphatase Total Creatine Kinase CK-MB (CK-2) Troponin I B-Natriuretic Peptide 1024 H Total Protein Albumin Globulin Albumin/Globulin Ratio Free T4 TSH 3rd Generation
[2017-01-21] MEDS ORDERED: DILTIAZEM CD 120 MG CAPSULE PO ONE (12:29)
--- NOTE | 2017-01-21 13:21 | Hospitalist Progress Note ---
Assessment and Plan (1) Atrial fibrillation, new onset Status: Acute Assessment and plan: Converted to sinus rhythm continue diltiazem continue Lovenox will start Coumadin 7.5 mg tonight Current Visit: Yes (2) Contusion/hemorrhage eye Status: Acute Assessment and plan: Monitor closely for any worsening hemorrhage due to anticoagulation Current Visit: Yes (3) Insulin dependent diabetes mellitus Status: Chronic Assessment and plan: hgb a1c 8.4, restart Lantus Current Visit: Yes (4) Pneumonia Status: Acute Assessment and plan: cont levaquin and vancomycin (at risk for MRSA), duonebs and oxygen may be just volume overloaded patient was running a high temperature, blood cultures are pending white count remains normal Current Visit: Yes Qualifiers: Pneumonia type: due to unspecified organism Laterality: right Lung location: unspecified part of lung Qualified Code(s): J18.9 - Pneumonia, unspecified organism (5) Troponin I above reference range Status: Chronic Assessment and plan: probably due to strain from new onset afib Current Visit: Yes (6) ESRD (end stage renal disease) on dialysis Problem details: Usual schedule //. Status: Chronic Assessment and plan: Next dialysis Sunday Current Visit: No (7) Hypertension Status: Chronic Assessment and plan: Continue diltiazem 240 mg p.o. daily, will add hydralazine. Current Visit: Yes (8) Severe sepsis Status: Acute Assessment and plan: blood cx pending, cont abx, lactic acid less than 2 Current Visit: Yes Hospitalist: Subjective Interval history: Patient is currently back in sinus rhythm. He will need long-term anticoagulation. Exam - Constitutional Vitals: Period Temp Pulse Resp BP Sys/Gao Pulse Ox Last 24 Hr 97.7 F-98.6 F 82-111 16-34 137-179/64-90 87-98 Exam: Heart Rate-[RRR] Lungs-[CTAB] GI-[+bs soft, NT] Ext-[no edema] Neuro [Motor 5/5], [alert and oriented times 3] psych [normal mood and affect] General [no acute distress] left eye ruptured blood vessel unchanged today Results - Labs CBC & BMP: 01/21/17 07:37 01/20/17 13:06 Lab Results: I have reviewed the past 24 hour labs Labs: MOSHE globin A1c is 8.6, BNP is 1024 - Diagnostic Findings Procedure: Chest x-ray: report reviewed by me (Pulmonary edema)
[2017-01-21 14:19] LABS: INR 1.3; PT Patient Result 13.6 SECS; Partial Thromboplastin Time 35.1 SECS (0-40)
[2017-01-21] MEDS: ALLOPURINOL 100 MG TABLET PO SCH (14:49)
[2017-01-21] MEDS: LOSARTAN 50 MG TABLET PO SCH (14:50)
[2017-01-21] MEDS: CINACALCET 30 MG TABLET PO SCH (14:50)
[2017-01-21] MEDS: SEVELAMER CARBONATE 800 MG TABLET PO SCH ×2 (14:50→21:48)
--- NOTE | 2017-01-21 16:00 | ECHO Report ---
Paramjit Leigh Exam Date: 01/21/2017 10:50 Referring Physician: Technologist: Stephanie Culp Age: 66 Ht (in): 68 Wt (lb): 227 Gender: M Exam Location: [facility] Echo Indications: pneumonia, a Fib, Diabetes, elevated troponin, pulmonary HTN, severe sepsis, HTN BP: 179 / 90 HR: 88 Rhythm: Sinus Technical Quality: Poor IMPRESSIONS Normal LV systolic and diastolic function with ejection fraction estimated at 60%. Moderate concentric left ventricular hypertrophy. Mild biatrial enlargement. Mildly dilated right ventricle. Mild mitral and aortic regurgitation. Mild to moderate tricuspid regurgitation. Trace pulmonic regurgitation. Aortic sclerosis without stenosis. The patient has a reported history of pulmonary hypertension, but on this study pulmonary artery pressures estimated at 37 mmHg. MEASUREMENTS (Male / Female) Normal Values 2D ECHO LV Diastolic Diameter PLAX 5.0 cm 4.2 - 5.9 / 3.9 - 5.3 cm LV Systolic Diameter PLAX 2.7 cm LV Fractional Shortening PLAX 45.8 % IVS Diastolic Thickness 1.5 cm 0.6 - 1.0 / 0.6 - 0.9 cm LVPW Diastolic Thickness 1.6 cm 0.6 - 1.0 / 0.6 - 0.9 cm RV Internal Dim ED PLAX 3.2 cm Aortic Root Diameter 2.5 cm LA Systolic Diameter LX 4.3 cm 3.0 - 4.0 / 2.7 - 3.8 cm DOPPLER TR Peak Velocity 259.0 cm/s TR Peak Gradient 26.8 mmHg FINDINGS Left Ventricle Moderately increased septal wall thickness. Moderate concentric left ventricular hypertrophy with diastolic dysfunction. Left ventricular ejection fraction is estimated at 55-60 %. There is very poor endocardial resolution which hinders regional wall motion assessment. Right Ventricle Mildly increased right ventricular size. Right Atrium The right atrium is mildly enlarged. Left Atrium Mildly increased left atrial diameter. Mitral Valve Mild mitral valve sclerosis. Trace - mild mitral valve regurgitation. Aortic Valve Mild - Moderate aortic valve sclerosis. Peak aortic gradient is 9 mmHg. Mild aortic valve regurgitation. Tricuspid Valve Mild tricuspid valve sclerosis. Mild -moderate tricuspid valve regurgitation. Tricuspid regurgitation velocities suggest a PAP of 37 mmHg. Pulmonic Valve Pulmonic valve not well visualized. There is trace regurgitation. Pericardium No pericardial effusion. Aorta Normal size aortic root and proximal ascending aorta. Yodit Neff MD (Electronically Signed) Final Date: 21 Jan 2017 15:58
[2017-01-21] MEDS: TOBRAMYCIN/DEXAMETHASONE 0.3%-0.1% OPH SUSP 2.5 ML BOTTLE RIGHT EYE SCH ×2 (17:14→21:47)
[2017-01-21] MEDS: ENOXAPARIN 100 MG/ML SYRINGE SUBCUT SCH (17:14)
[2017-01-21] MEDS: INSULIN GLARGINE 100 UNIT/ML SUBCUT SCH (18:18)
[2017-01-21] MEDS: WARFARIN 5 MG TABLET PO SCH (18:18)
[2017-01-21] MEDS: traZODone 50 MG TABLET PO SCH (21:48)
[2017-01-22] MEDS: ALBUTEROL/IPRATROPIUM 3 ML NEB RESP TX SCH ×5 (03:36→19:40)
[2017-01-22] MEDS: INSULIN LISPRO 100 UNIT/ML SUBCUT SCH ×4 (09:16→21:30)
[2017-01-22] MEDS: SEVELAMER CARBONATE 800 MG TABLET PO SCH ×3 (09:18→21:29)
[2017-01-22] MEDS: LOSARTAN 50 MG TABLET PO SCH (09:18)
[2017-01-22] MEDS: PANTOPRAZOLE 40 MG TABLET PO SCH (09:18)
[2017-01-22] MEDS: DILTIAZEM CD 120 MG CAPSULE PO SCH (09:18)
[2017-01-22 09:19] LABS: Calcium 7.1 MG/DL (8.5-10.1); Magnesium 2.1 MG/DL (1.8-2.4); Osmolality,Calculated 283.7 MOS/KG (273-304); Potassium 4.1 MMOL/L (3.5-5.1)
[2017-01-22] MEDS: ALLOPURINOL 100 MG TABLET PO SCH (09:19)
[2017-01-22] MEDS: CINACALCET 30 MG TABLET PO SCH (09:19)
[2017-01-22] MEDS: ATORVASTATIN 40 MG TABLET PO SCH (09:19)
[2017-01-22] MEDS: TOBRAMYCIN/DEXAMETHASONE 0.3%-0.1% OPH SUSP 2.5 ML BOTTLE RIGHT EYE SCH ×4 (09:19→21:29)
--- NOTE | 2017-01-22 11:20 | Ultrasound Report ---
Exam: US abdomen Date: 01/22/2017 1:23 PM Comparison: None Indication: Fatty liver Technique:[Multiple transabdominal real-time scans were obtained of the abdomen. Color flow scans obtained. Ultrasound images were captured and stored.] Findings: The gallbladder is significantly contracted with wall measuring 5 mm. No definite gallstones are identified. CBD is normal in size measuring 5.2 mm. The liver is normal in size with no masses are definite fatty infiltration. The spleen is normal in size and appearance. Right kidney measures 87 mm in length. Left kidney measures 88 mm in length. No hydronephrosis or mass. The visualized aorta is normal in size with color flow documented in the IVC. The pancreas and aortic bifurcation are secured by bowel gas. Impression: Contracted gallbladder with gallbladder wall thickening which could be related possible cholecystitis, etc. Biliary scan with ejection fraction may be helpful for further evaluation. No significant fatty infiltration of the liver. Cortical scarring of the kidneys. The pancreas and distal aorta are obscured by bowel gas. The Ultrasound images were captured and stored. PROCEDURE INTERPRETED AT [facility] DEPARTMENT OF RADIOLOGY Final Report Signed by: Dr. Sultana Kemp
--- NOTE | 2017-01-22 11:40 | Cardiology Progress Note ---
<Glenis Asif E - Last Filed: 01/22/17 11:28> Assessment and Plan - Time spent with patient Time spent with patient: Less than 30 minutes (1) Pneumonia Status: Acute Assessment and plan: SEE PLAN OF CARE LISTED BELOW. Current Visit: Yes Qualifiers: Pneumonia type: due to unspecified organism Laterality: right Lung location: unspecified part of lung Qualified Code(s): J18.9 - Pneumonia, unspecified organism (2) Atrial fibrillation, new onset Status: Acute Assessment and plan: SEE PLAN OF CARE LISTED BELOW. Current Visit: Yes (3) ESRD (end stage renal disease) on dialysis Problem details: Usual schedule //. Status: Chronic Assessment and plan: SEE PLAN OF CARE LISTED BELOW. Current Visit: No (4) Contusion/hemorrhage eye Status: Acute Assessment and plan: SEE PLAN OF CARE LISTED BELOW. Current Visit: Yes (5) Insulin dependent diabetes mellitus Status: Chronic Assessment and plan: SEE PLAN OF CARE LISTED BELOW. Current Visit: Yes (6) Troponin I above reference range Status: Chronic Assessment and plan: SEE PLAN OF CARE LISTED BELOW. Current Visit: Yes (7) Hypertension Status: Chronic Assessment and plan: SEE PLAN OF CARE LISTED BELOW. Current Visit: Yes (8) Pulmonary hypertension Status: Chronic Assessment and plan: SEE PLAN OF CARE LISTED BELOW. Current Visit: Yes Cardiology - PN: Subj Interval history: Case Filler: Dr. Arthur Mr. Leigh is a 66 year old male without a history of coronary artery disease, end-stage renal disease on hemodialysis, hypertension. Possibly a history of cardiomyopathy. Last reports from Dr. Arthur, including a heart catheterization last year describe a normal systolic function. He was evaluated with left and right heart catheterization for pulmonary hypertension. This was in preparation for possible renal transplantation. The patient was basically admitted for pneumonia. Upon admission he was found to be in atrial fibrillation with rapid ventricular response. He has no documentation of this arrhythmia, does not take anticoagulation. He has no awareness of palpitations or irregularities. No clear contraindication to anticoagulation. January 13, 2017: The patient appears to be improving clinically. He denies any chest pain or shortness of breath. He has been in a sinus rhythm. Mr. Leigh' s pharmacy called him and has inquired whether he has had a cough while taking Losartan. He reports that he has had an occasional cough while taking this medication and has informed Dr. Correa today that he no longer wishes to take this medication. This has been placed on hold for now pending further review of his medications. Impression and plan: 1. PNEUMONIA -being treated by the hospitalist service. He is receiving IV Vancomycin with pharmacy assisting in dosing. 2. ATRIAL FIBRILLATION WITH RVR -he is currently in normal sinus rhythm. His calcium channel yulisa was increased to assist with blood pressure control. The duration and chronicity of his afib are unknown. He is being anticoagulated. We will need to watch his left eye on this anticoagulation. Likely he will need this anticoagulation long-term. 3. ESRD -on chronic hemodialysis. 4. ABNORMAL CARDIAC BIOMARKERS -this is chronic, these are lower than normal for him. 5. HYPERTENSION -increase calcium channel yulisa. 6. HYPERLIPIDEMIA - Continue lipid-lowering agent. 7. PULMONARY HYPERTENSION Dr. Arthur to follow with further plan and addendum. Exam (Progress Note) - Constitutional Vitals: Period Temp Pulse Resp BP Sys/Gao Pulse Ox Last 24 Hr 97.2 F-98.4 F 88-105 16-20 146-195/78-87 85-99 Exam: General appearance: normal weight, no acute distress - Head Head exam: Present: normal inspection, normocephalic, atraumatic. Absent: hematoma, laceration - Eye Eye exam: Present: EOMI. sclera on the left side is injected with hemorrhage, although slightly improved from yesterday. Pupils: Present: PERRL. Absent: constricted, dilated, fixed, irregular, unequal - ENT ENT exam: Present: normal exam, normal external ear exam - Neck Neck exam: Present: normal inspection. Absent: lymphadenopathy, meningismus, tenderness, thyromegaly - Respiratory Respiratory exam: Present: Scant basilar crackles right greater than left, expiratory wheezes noted. Absent: accessory muscle use, chest wall tenderness - Cardiovascular Cardiovascular exam: Present: regular rate and rhythm. Absent: carotid bruit, gallop, JVD, rubs - GI/Abdominal GI/Abdominal exam: Present: normal bowel sounds, soft. Absent: distended, firm , guarding, hernia, mass, tenderness, rebound. - Extremities Exam Extremities exam: Present: Decreased pulses in the bilateral lower extremities. Absent: calf tenderness, edema - Back Exam Back exam: Present: normal inspection. Absent: muscle spasm, vertebral tenderness - Neurological Exam Neurological exam: Present: alert, oriented X3, grossly intact without resting or intention tremor - Psychiatric Psychiatric exam: Present: normal affect, normal mood - Skin Skin exam: Present: normal color, warm, dry, intact. Absent: cyanosis, diaphoretic, rash, urticaria Result/EKG - Labs CBC & BMP: 01/21/17 07:37 01/22/17 08:15 Lab Results: I have reviewed the past 24 hour labs Labs: Laboratory Results - last 24 hr 01/21/17 01/21/17 01/21/17 07:22 11:46 13:44 INR 1.3 PT Patient/Control Mix 13.6 Fibrinogen D-Dimer, Quantitative Circ Anticoag PTT 35.1 Sodium Potassium Chloride Carbon Dioxide Anion Gap BUN Creatinine GFR Calculation BUN/Creatinine Ratio Glucose POC Glucose 278 H 314 H Calculated Osmolality Calcium Magnesium B-Natriuretic Peptide 01/21/17 01/21/17 01/21/17 13:44 15:37 20:25 INR PT Patient/Control Mix Fibrinogen 357 D-Dimer, Quantitative 1.0 Circ Anticoag PTT Sodium Potassium Chloride Carbon Dioxide Anion Gap BUN Creatinine GFR Calculation BUN/Creatinine Ratio Glucose POC Glucose 255 H 207 H Calculated Osmolality Calcium Magnesium B-Natriuretic Peptide 01/22/17 01/22/17 01/22/17 08:06 08:15 08:15 INR PT Patient/Control Mix Fibrinogen D-Dimer, Quantitative Circ Anticoag PTT Sodium 131 L Potassium 4.1 Chloride 91 L Carbon Dioxide 31 Anion Gap 13.1 BUN 62 H Creatinine 7.80 H GFR Calculation 10 BUN/Creatinine Ratio 7.00 Glucose 178 H POC Glucose 191 H Calculated Osmolality 283.7 Calcium 7.1 L Magnesium 2.1 B-Natriuretic Peptide 869 H - EKG EKG results: interpreted by me, sinus rhythm <Suad Arthur - Last Filed: 01/22/17 19:27> Assessment and Plan - Time spent with patient Time spent with patient: Less than 30 minutes (1) ESRD (end stage renal disease) on dialysis Problem details: Usual schedule //. Status: Chronic Current Visit: No (2) Pneumonia Status: Acute Current Visit: Yes Qualifiers: Pneumonia type: due to unspecified organism Laterality: right Lung location: unspecified part of lung Qualified Code(s): J18.9 - Pneumonia, unspecified organism (3) Atrial fibrillation, new onset Status: Acute Current Visit: Yes (4) Hypertension Status: Chronic Current Visit: Yes (5) Pulmonary hypertension Status: Chronic Current Visit: Yes Cardiology - PN: Subj Interval history: Mr. Leigh is a 66-year-old gentleman well-known to me. He has new onset atrial fibrillation he has a history of nonischemic cardiomyopathy. He has end- stage renal disease and has been knocked off of the transplant list because of pulmonary hypertension. I talked him in the past about workup for this including evaluation for sleep apnea. He is requested that we work this up. We will get pulmonary medicine to see. His blood pressure remains uncontrolled I will add hydralazine. Currently he is on Cardizem for rate control consider changing to beta-yulisa. This would allow us to change/add amlodipine. In the past she has been intolerant of calcium channel blockers because of lower extremity edema. Exam (Progress Note) - Constitutional Vitals: Period Temp Pulse Resp BP Sys/Gao Pulse Ox Last 24 Hr 97.2 F-98.4 F 82-106 16-20 146-195/78-95 85-98 Result/EKG - Labs CBC & BMP: 01/21/17 07:37 01/22/17 08:15 Labs: Laboratory Results - last 24 hr 01/21/17 01/21/17 01/21/17 07:22 11:46 15:37 Sodium Potassium Chloride Carbon Dioxide Anion Gap BUN Creatinine GFR Calculation BUN/Creatinine Ratio Glucose POC Glucose 278 H 314 H 255 H Calculated Osmolality Calcium Magnesium B-Natriuretic Peptide 01/21/17 01/22/17 01/22/17 20:25 08:06 08:15 Sodium Potassium Chloride Carbon Dioxide Anion Gap BUN Creatinine GFR Calculation BUN/Creatinine Ratio Glucose POC Glucose 207 H 191 H Calculated Osmolality Calcium Magnesium B-Natriuretic Peptide 869 H 01/22/17 01/22/17 01/22/17 08:15 11:43 15:49 Sodium 131 L Potassium 4.1 Chloride 91 L Carbon Dioxide 31 Anion Gap 13.1 BUN 62 H Creatinine 7.80 H GFR Calculation 10 BUN/Creatinine Ratio 7.00 Glucose 178 H POC Glucose 204 H 203 H Calculated Osmolality 283.7 Calcium 7.1 L Magnesium 2.1 B-Natriuretic Peptide
--- NOTE | 2017-01-22 14:11 | Hospitalist Progress Note ---
Assessment and Plan (1) Pneumonia Status: Acute Assessment and plan: 1)pneumonia- on levaquin and vanc. fever free for almost 24 hours at this point. cultures remain negative so far. 2)afib- new onset. overlapping lovenox and coumadin. rate controlled with dilt. daily INR. 3)diabetes- on lantus, monitor glucose 4)ESRD- //[facility] dialysis 5)HTN 6)contusion of left eye- traumatic- he hit his eye on a dresser at home. seen by ophtho as outpatient. monitor while anticoagulating. eye drops. 7)concern for liver disease- abdominal US pending. Current Visit: Yes Qualifiers: Pneumonia type: due to unspecified organism Laterality: right Lung location: unspecified part of lung Qualified Code(s): J18.9 - Pneumonia, unspecified organism (2) ESRD (end stage renal disease) on dialysis Problem details: Usual schedule //. Status: Chronic Current Visit: No (3) Atrial fibrillation, new onset Status: Acute Current Visit: Yes (4) Contusion/hemorrhage eye Status: Acute Current Visit: Yes (5) Insulin dependent diabetes mellitus Status: Chronic Current Visit: Yes (6) Hypertension Status: Chronic Current Visit: Yes Hospitalist: Subjective Interval history: Mr Leigh is feeling much better today. He is almost 24 hours without fever. His appetite is ok, he is up to walk in the room without problems. His is also here and I addressed her questions as well. I spent 10 minutes discussing his hospital course and treatment with them. Exam - Constitutional Vitals: Period Temp Pulse Resp BP Sys/Gao Pulse Ox Last 24 Hr 97.2 F-98.4 F 97-105 16-20 146-195/78-95 85-99 General appearance: no acute distress, over weight - Head Head exam: Present: normocephalic, atraumatic - Eye Eye exam: Present: EOMI. Absent: scleral icterus - Respiratory Respiratory exam: Present: rales (bilaterally about nursing home up) - Cardiovascular Cardiovascular exam: Present: irregular rhythm - GI/Abdominal GI/Abdominal exam: Present: normal bowel sounds, soft. Absent: tenderness - Extremities Exam Extremities exam: Present: edema (trace at ankles) - Neurological Exam Neurological exam: Present: alert, oriented X3 - Skin Skin exam: Present: warm, dry Results - Labs CBC & BMP: 01/21/17 07:37 01/22/17 08:15 Lab Results: I have reviewed the past 24 hour labs
--- NOTE | 2017-01-22 14:24 | Nephrology Progress Note ---
Nephrology - PN: Subj Interval history: Mr. Leigh seen in follow-up of his end-stage renal disease. His pulmonary infection seems to be improving he is not coughing as much and has been afebrile for 36 hours our plan is to dialyze him tomorrow. Overall he is improved Exam (PN)-Nephrology - Vital Signs Vital signs: Period Temp Pulse Resp BP Sys/Gao Pulse Ox Last 24 Hr 97.2 F-98.4 F 97-105 16-20 146-195/78-95 85-99 - Lab 01/21/17 07:37 01/22/17 08:15 Most recent lab results Calcium 7.1 MG/DL (8.5-10.1) L 01/22/17 08:15 Magnesium 2.1 MG/DL (1.8-2.4) 01/22/17 08:15 Assessment and Plan (1) ESRD (end stage renal disease) on dialysis Problem details: Usual schedule //. Status: Chronic Current Visit: No (2) Atrial fibrillation, new onset Status: Acute Current Visit: Yes (3) Pneumonia Status: Acute Current Visit: Yes Qualifiers: Pneumonia type: due to unspecified organism Laterality: right Lung location: unspecified part of lung Qualified Code(s): J18.9 - Pneumonia, unspecified organism
[2017-01-22] MEDS: LEVOFLOXACIN INJ 500 MG in PREMIX 1 EACH IV SCH (14:31)
[2017-01-22] MEDS: WARFARIN 5 MG TABLET PO SCH (17:24)
[2017-01-22] MEDS: ENOXAPARIN 100 MG/ML SYRINGE SUBCUT SCH (17:24)
[2017-01-22] MEDS: INSULIN GLARGINE 100 UNIT/ML SUBCUT SCH (18:20)
[2017-01-22] MEDS: hydrALAZINE 25 MG TABLET PO SCH (21:29)
[2017-01-22] MEDS: traZODone 50 MG TABLET PO SCH (21:29)
[2017-01-23] MEDS: ALBUTEROL/IPRATROPIUM 3 ML NEB RESP TX SCH ×7 (00:45→23:51)
[2017-01-23] MEDS: INSULIN LISPRO 100 UNIT/ML SUBCUT SCH ×4 (08:42→21:13)
[2017-01-23] MEDS: DILTIAZEM CD 120 MG CAPSULE PO SCH (08:43)
[2017-01-23] MEDS: CINACALCET 30 MG TABLET PO SCH (08:43)
[2017-01-23] MEDS: hydrALAZINE 25 MG TABLET PO SCH (08:43)
[2017-01-23] MEDS: PANTOPRAZOLE 40 MG TABLET PO SCH (08:44)
[2017-01-23] MEDS: ATORVASTATIN 40 MG TABLET PO SCH (08:44)
[2017-01-23] MEDS: TOBRAMYCIN/DEXAMETHASONE 0.3%-0.1% OPH SUSP 2.5 ML BOTTLE RIGHT EYE SCH ×4 (08:44→21:15)
[2017-01-23] MEDS: SEVELAMER CARBONATE 800 MG TABLET PO SCH ×3 (08:44→21:12)
[2017-01-23] MEDS: ALLOPURINOL 100 MG TABLET PO SCH (08:44)
--- NOTE | 2017-01-23 08:55 | Cardiology Progress Note ---
<Glenis Asif Logan - Last Filed: 01/23/17 08:40> Assessment and Plan - Time spent with patient Time spent with patient: Less than 30 minutes (1) Pneumonia Status: Acute Assessment and plan: SEE PLAN OF CARE LISTED BELOW. Current Visit: Yes Qualifiers: Pneumonia type: due to unspecified organism Laterality: right Lung location: unspecified part of lung Qualified Code(s): J18.9 - Pneumonia, unspecified organism (2) Atrial fibrillation, new onset Status: Acute Assessment and plan: SEE PLAN OF CARE LISTED BELOW. Current Visit: Yes (3) ESRD (end stage renal disease) on dialysis Problem details: Usual schedule //. Status: Chronic Assessment and plan: SEE PLAN OF CARE LISTED BELOW. Current Visit: No (4) Insulin dependent diabetes mellitus Status: Chronic Assessment and plan: SEE PLAN OF CARE LISTED BELOW. Current Visit: Yes (5) Hypertension Status: Chronic Assessment and plan: SEE PLAN OF CARE LISTED BELOW. Current Visit: Yes (6) Pulmonary hypertension Status: Chronic Assessment and plan: SEE PLAN OF CARE LISTED BELOW. Current Visit: Yes Cardiology - PN: Subj Interval history: [employer]: Dr. Arthur Mr. Leigh is a 66 year old male without a history of coronary artery disease, end-stage renal disease on hemodialysis, hypertension. Possibly a history of cardiomyopathy. Last reports from Dr. Arthur, including a heart catheterization last year describe a normal systolic function. He was evaluated with left and right heart catheterization for pulmonary hypertension. This was in preparation for possible renal transplantation. The patient was basically admitted for pneumonia. Upon admission he was found to be in atrial fibrillation with rapid ventricular response. He has no documentation of this arrhythmia, does not take anticoagulation. He has no awareness of palpitations or irregularities. No clear contraindication to anticoagulation. January 13, 2017: The patient appears to be improving clinically. He denies any chest pain or shortness of breath. He has been in a sinus rhythm. Losartan is on hold due to patient's complain of cough. Impression and plan: 1. PNEUMONIA -being treated by the hospitalist service. He is receiving IV Vancomycin with pharmacy assisting in dosing. 2. ATRIAL FIBRILLATION, NEW ONSET -he is currently in normal sinus rhythm. His calcium channel yulisa was increased to assist with blood pressure control. The duration and chronicity of his afib are unknown. He is being anticoagulated. We will need to watch his left eye on this anticoagulation. Likely he will need this anticoagulation long-term. 3. ESRD -on chronic hemodialysis. He is for dialysis TTS. 4. HYPERTENSION - He is on Cardizem for rate control. May consider changing to beta yulisa which would allow us to change/add amlodipine. In the past, he has reportedly been intolerant of calcium channel blockers due to lower extremity edema. He was started on Hydralazine yesterday due to uncontrolled blood pressure. Upon review of these changes today, he tells me that he has a whole bottle of hydralazine 100mg tablets at home that he was taken off of in the past. He reports he believes he had a side effect of itching with this medication. He has had a dose already without any side effects, we will monitor him on this medication. According to previous records, it appears that this was stopped due to patient's concern of his blood pressure running too low, especially after HD. 5. HYPERLIPIDEMIA - Continue lipid-lowering agent. 6. PULMONARY HYPERTENSION - Chronic. Sleep medicine has been consulted to see him in evaluation for possible sleep apnea. Dr. Arthur to follow with further plan and addendum. Exam (Progress Note) - Constitutional Vitals: Period Temp Pulse Resp BP Sys/Gao Pulse Ox Last 24 Hr 97.7 F-98.3 F 81-106 17-22 155-180/82-95 90-100 Exam: General appearance: normal weight, no acute distress - Head Head exam: Present: normal inspection, normocephalic, atraumatic. Absent: hematoma, laceration - Eye Eye exam: Present: EOMI. sclera on the left side is injected with hemorrhage, although slightly improved from yesterday. Pupils: Present: PERRL. Absent: constricted, dilated, fixed, irregular, unequal - ENT ENT exam: Present: normal exam, normal external ear exam - Neck Neck exam: Present: normal inspection. Absent: lymphadenopathy, meningismus, tenderness, thyromegaly - Respiratory Respiratory exam: Present: Scant basilar crackles right greater than left, expiratory wheezes noted. Absent: accessory muscle use, chest wall tenderness - Cardiovascular Cardiovascular exam: Present: regular rate and rhythm. Absent: carotid bruit, gallop, JVD, rubs - GI/Abdominal GI/Abdominal exam: Present: normal bowel sounds, soft. Absent: distended, firm , guarding, hernia, mass, tenderness, rebound. - Extremities Exam Extremities exam: Present: Decreased pulses in the bilateral lower extremities, 1+ BLE edema. Absent: calf tenderness - Back Exam Back exam: Present: normal inspection. Absent: muscle spasm, vertebral tenderness - Neurological Exam Neurological exam: Present: alert, oriented X3, grossly intact without resting or intention tremor - Psychiatric Psychiatric exam: Present: normal affect, normal mood - Skin Skin exam: Present: normal color, warm, dry, intact. Absent: cyanosis, diaphoretic, rash, urticaria Result/EKG - Labs CBC & BMP: 01/21/17 07:37 01/22/17 08:15 Lab Results: I have reviewed the past 24 hour labs Labs: Laboratory Results - last 24 hr 01/22/17 01/22/17 01/22/17 08:15 08:15 11:43 Sodium 131 L Potassium 4.1 Chloride 91 L Carbon Dioxide 31 Anion Gap 13.1 BUN 62 H Creatinine 7.80 H GFR Calculation 10 BUN/Creatinine Ratio 7.00 Glucose 178 H POC Glucose 204 H Calculated Osmolality 283.7 Calcium 7.1 L Magnesium 2.1 B-Natriuretic Peptide 869 H 01/22/17 01/22/17 01/23/17 15:49 19:44 07:41 Sodium Potassium Chloride Carbon Dioxide Anion Gap BUN Creatinine GFR Calculation BUN/Creatinine Ratio Glucose POC Glucose 203 H 221 H 140 H Calculated Osmolality Calcium Magnesium B-Natriuretic Peptide - EKG EKG results: interpreted by me, sinus rhythm <Suad Arthur - Last Filed: 01/23/17 14:34> Assessment and Plan (1) ESRD (end stage renal disease) on dialysis Problem details: Usual schedule //. Status: Chronic Current Visit: No (2) Pneumonia Status: Acute Current Visit: Yes Qualifiers: Pneumonia type: due to unspecified organism Laterality: right Lung location: unspecified part of lung Qualified Code(s): J18.9 - Pneumonia, unspecified organism (3) Atrial fibrillation, new onset Status: Acute Current Visit: Yes (4) Hypertension Status: Chronic Current Visit: Yes (5) Pulmonary hypertension Status: Chronic Current Visit: Yes Cardiology - PN: Subj Interval history: I saw and examined Mr. Leigh on hemodialysis with Ms. Asif. The patient continues to have severely uncontrolled blood pressure will continue to escalate his medications. I have added hydralazine yesterday will also add clonidine today. He has very refractory hypertension. Agree with the above. Exam (Progress Note) - Constitutional Vitals: Period Temp Pulse Resp BP Sys/Gao Pulse Ox Last 24 Hr 97.7 F-98.3 F 81-106 18-22 155-197/82-102 90-100 Exam: He has an S4 gallop Dialysis access has nice thrill and bruit he is alert and oriented - Neurological Exam Neurological exam: Present: alert, oriented X3 - Psychiatric Psychiatric exam: Present: normal affect, normal mood - Skin Skin exam: Present: normal color, warm Result/EKG - Labs CBC & BMP: 01/23/17 09:42 01/23/17 09:42 Labs: Laboratory Results - last 24 hr 01/22/17 01/22/17 01/23/17 15:49 19:44 07:41 WBC RBC Hgb Hct MCV MCH MCHC RDW Plt Count MPV Neut % (Auto) Lymph % (Auto) [place] % (Auto) Eos % (Auto) Baso % (Auto) Neut # (Auto) Lymph # (Auto) [place] # (Auto) Eos # (Auto) Baso # (Auto) Immature Gran % Nucleated RBC % Immature Gran # Nucleated RBCs # INR PT Patient/Control Mix Sodium Potassium Chloride Carbon Dioxide Anion Gap BUN Creatinine GFR Calculation BUN/Creatinine Ratio Glucose POC Glucose 203 H 221 H 140 H Calculated Osmolality Calcium Magnesium B-Natriuretic Peptide 01/23/17 01/23/17 01/23/17 09:42 09:42 09:42 WBC 5.2 RBC 3.35 L Hgb 11.0 L Hct 32.0 L MCV 95.5 MCH 33 MCHC 34.4 RDW 12.9 Plt Count 140 D MPV 10.9 Neut % (Auto) 68.6 Lymph % (Auto) 18.7 L [place] % (Auto) 9.8 Eos % (Auto) 2.3 Baso % (Auto) 0.2 Neut # (Auto) 3.6 Lymph # (Auto) 1.0 L [place] # (Auto) 0.5 Eos # (Auto) 0.1 Baso # (Auto) 0.0 Immature Gran % 0.4 Nucleated RBC % 0.0 Immature Gran # 0.02 Nucleated RBCs # 0.00 INR PT Patient/Control Mix Sodium 135 L Potassium 4.4 Chloride 95 L Carbon Dioxide 27 Anion Gap 17.4 H BUN 71 H Creatinine 8.30 H GFR Calculation 9 BUN/Creatinine Ratio 8.00 Glucose 170 H POC Glucose Calculated Osmolality 294.1 Calcium 7.2 L Magnesium 2.0 B-Natriuretic Peptide 472 H 01/23/17 01/23/17 09:42 11:41 WBC RBC Hgb Hct MCV MCH MCHC RDW Plt Count MPV Neut % (Auto) Lymph % (Auto) [place] % (Auto) Eos % (Auto) Baso % (Auto) Neut # (Auto) Lymph # (Auto) [place] # (Auto) Eos # (Auto) Baso # (Auto) Immature Gran % Nucleated RBC % Immature Gran # Nucleated RBCs # INR 1.2 PT Patient/Control Mix 12.7 Sodium Potassium Chloride Carbon Dioxide Anion Gap BUN Creatinine GFR Calculation BUN/Creatinine Ratio Glucose POC Glucose 129 H Calculated Osmolality Calcium Magnesium B-Natriuretic Peptide
--- NOTE | 2017-01-23 09:51 | Dialysis Note ---
Dialysis Note - Dialysis Note Ms. Leigh seen during his hemodialysis. He is doing well and tolerating dialysis well. He has been afebrile on his antibiotics and is coughing less. He is back in a regular heart rhythm and is having no palpitations. Overall is much improved
[2017-01-23 10:03] LABS: Basophils % 0.2 % (0.0-0.8); Eosinophils # 0.1 10*3/uL (0.0-0.87); Eosinophils % 2.3 % (0.00-10.9); Immature Granulocytes % 0.4 %; Immature Granulocytes Absolute 0.02 #; Lymphocytes % 18.7 % (21.2-54.2); Mean Corpuscular HGB Conc 34.4 GM/DL (32-36); Mean Corpuscular Hemoglobin 33 PG (27-34); Mean Corpuscular Volume 95.5 FL (87-102); Mean Platelet Volume 10.9 FL (9.6-12.0); Monocytes # 0.5 10*3/uL (0.11-0.8); Monocytes % 9.8 % (1.7-12.7); Neutrophils # 3.6 10*3/uL (1.4-7.4); Neutrophils % 68.6 % (38.7-73.9); Platelet Count 140 T/CUMM (130-400); Red Blood Count 3.35 MC/CUMM (3.8-5.5); Red Cell Distribution Width 12.9 % (9.3-17.3); White Blood Count 5.2 T/CUMM (4-12)
[2017-01-23 10:14] LABS: INR 1.2; PT Patient Result 12.7 SECS
[2017-01-23 10:35] LABS: Calcium 7.2 MG/DL (8.5-10.1); Osmolality,Calculated 294.1 MOS/KG (273-304); Potassium 4.4 MMOL/L (3.5-5.1)
[2017-01-23] MEDS ORDERED: hydrALAZINE 20 MG/1 ML VIAL IV PRN (12:09)
--- NOTE | 2017-01-23 13:25 | Hospitalist Progress Note ---
Assessment and Plan (1) Pneumonia Status: Acute Assessment and plan: 1)pneumonia- on levaquin and vanc. fever free for 2 days. cultures remain negative so far. 2)afib- new onset. overlapping lovenox and coumadin. rate controlled with dilt. daily INR. give extra measure of coumadin tonight. 3)diabetes- on lantus, monitor glucose 4)ESRD- T//Sun dialysis 5)HTN 6)contusion of left eye- traumatic- he hit his eye on a dresser at home. seen by ophtho as outpatient. monitor while anticoagulating. eye drops. 7)concern for liver disease- abdominal US showed contracted gallbladder, no sig fatty infiltration of liver, kidneys with cortical scarring. Current Visit: Yes Qualifiers: Pneumonia type: due to unspecified organism Laterality: right Lung location: unspecified part of lung Qualified Code(s): J18.9 - Pneumonia, unspecified organism (2) ESRD (end stage renal disease) on dialysis Problem details: Usual schedule //. Status: Chronic Current Visit: No (3) Atrial fibrillation, new onset Status: Acute Current Visit: Yes (4) Contusion/hemorrhage eye Status: Acute Current Visit: Yes (5) Insulin dependent diabetes mellitus Status: Chronic Current Visit: Yes (6) Hypertension Status: Chronic Current Visit: Yes Hospitalist: Subjective Interval history: MR Leigh is feeling great today on dialysis. He slept well last night and his appetite is good. He complains of nasal congestion from the O2. He denies shortness of breath at rest. No pain. Exam - Constitutional Vitals: Period Temp Pulse Resp BP Sys/Gao Pulse Ox Last 24 Hr 97.7 F-98.3 F 81-106 18-22 155-197/82-102 90-100 General appearance: no acute distress, over weight - Eye Eye exam: Present: EOMI. Absent: scleral icterus - Respiratory Respiratory exam: Present: rales (at bases bilaterally) - Cardiovascular Cardiovascular exam: Present: regular rate and rhythm - GI/Abdominal GI/Abdominal exam: Present: normal bowel sounds, soft. Absent: tenderness - Extremities Exam Extremities exam: Absent: edema Results - Labs CBC & BMP: 01/23/17 09:42 01/23/17 09:42 Lab Results: I have reviewed the past 24 hour labs
[2017-01-23] MEDS ORDERED: cloNIDine 0.1 MG/24 HR PATCH TRANSDERM SCH (14:30)
[2017-01-23] MEDS ORDERED: VANCOMYCIN INJ 750 MG in SODIUM CHLORIDE 0.9% 250 ML IV ONE (15:00)
[2017-01-23] MEDS: ENOXAPARIN 100 MG/ML SYRINGE SUBCUT SCH (16:17)
[2017-01-23] MEDS: WARFARIN 5 MG TABLET PO SCH (17:37)
[2017-01-23] MEDS: INSULIN GLARGINE 100 UNIT/ML SUBCUT SCH ×2 (17:37→18:44)
[2017-01-23] MEDS: traZODone 50 MG TABLET PO SCH (21:12)
[2017-01-23] MEDS: FLUTICASONE 50 MCG NASAL SPRAY 16 GM BOTTLE BOTH NARES SCH (22:36)
[2017-01-24] MEDS: ALBUTEROL/IPRATROPIUM 3 ML NEB RESP TX SCH ×6 (02:39→23:22)
[2017-01-24 07:29] LABS: Basophils % 0.4 % (0.0-0.8); Eosinophils # 0.2 10*3/uL (0.0-0.87); Eosinophils % 3.2 % (0.00-10.9); Hematocrit 34.8 VOL% (42.0-52.0); Hemoglobin 11.8 GM/DL (14.0-18.0); Immature Granulocytes % 0.4 %; Immature Granulocytes Absolute 0.02 #; Lymphocytes % 19.2 % (21.2-54.2); Mean Corpuscular HGB Conc 33.9 GM/DL (32-36); Mean Corpuscular Hemoglobin 33 PG (27-34); Mean Corpuscular Volume 95.9 FL (87-102); Mean Platelet Volume 10.4 FL (9.6-12.0); Monocytes # 0.6 10*3/uL (0.11-0.8); Monocytes % 12.3 % (1.7-12.7); Neutrophils # 3.3 10*3/uL (1.4-7.4); Neutrophils % 64.5 % (38.7-73.9); Platelet Count 137 T/CUMM (130-400); Red Blood Count 3.63 MC/CUMM (3.8-5.5); Red Cell Distribution Width 13.2 % (9.3-17.3); White Blood Count 5.1 T/CUMM (4-12)
[2017-01-24 07:39] LABS: INR 1.2; PT Patient Result 12.6 SECS
[2017-01-24 08:07] LABS: Calcium 7.7 MG/DL (8.5-10.1); Magnesium 2.1 MG/DL (1.8-2.4); Osmolality,Calculated 289.4 MOS/KG (273-304); Potassium 4.7 MMOL/L (3.5-5.1)
[2017-01-24] MEDS: INSULIN LISPRO 100 UNIT/ML SUBCUT SCH ×4 (08:19→20:47)
--- NOTE | 2017-01-24 08:29 | Nephrology Progress Note ---
Nephrology - PN: Subj Interval history: Mr. Leigh seen in follow-up of his end-stage renal disease. He has been hypertensive but requested to come off his losartan earlier. He is tolerating this well at home but phone call from his pharmacy inquiring about whether or not he had a cough made him want to come off the losartan. That occurred during the time he was developing his significant bronchitis. He was having significantly productive cough and not a dry cough. He is willing to start losartan back and I think is reasonable. His chest is clear. He is much improved from his bronchitis. He also had questions about use of his nifedipine. We explained that the diltiazem that he is on now would be used in place of nifedipine in order to assist with control of heart rate. Exam (PN)-Nephrology - Vital Signs Vital signs: Period Temp Pulse Resp BP Sys/Gao Pulse Ox Last 24 Hr 97.2 F-98.9 F 101-110 - 167-197/80-102 85-100 - Lab 01/24/17 07:22 01/24/17 07:22 Most recent lab results Calcium 7.7 MG/DL (8.5-10.1) L 01/24/17 07:22 Magnesium 2.1 MG/DL (1.8-2.4) 01/24/17 07:22 Assessment and Plan (1) ESRD (end stage renal disease) on dialysis Problem details: Usual schedule //. Status: Chronic Current Visit: No (2) Atrial fibrillation, new onset Status: Acute Current Visit: Yes (3) Pneumonia Status: Acute Current Visit: Yes Qualifiers: Pneumonia type: due to unspecified organism Laterality: right Lung location: unspecified part of lung Qualified Code(s): J18.9 - Pneumonia, unspecified organism
[2017-01-24] MEDS: CINACALCET 30 MG TABLET PO SCH (09:47)
[2017-01-24] MEDS: ATORVASTATIN 40 MG TABLET PO SCH (09:47)
[2017-01-24] MEDS: SEVELAMER CARBONATE 800 MG TABLET PO SCH ×3 (09:47→20:46)
[2017-01-24] MEDS: DILTIAZEM CD 120 MG CAPSULE PO SCH (09:47)
[2017-01-24] MEDS: LOSARTAN 50 MG TABLET PO SCH (09:48)
[2017-01-24] MEDS: TOBRAMYCIN/DEXAMETHASONE 0.3%-0.1% OPH SUSP 2.5 ML BOTTLE RIGHT EYE SCH ×2 (09:48→14:28)
[2017-01-24] MEDS: PANTOPRAZOLE 40 MG TABLET PO SCH (09:48)
[2017-01-24] MEDS: ALLOPURINOL 100 MG TABLET PO SCH (09:48)
[2017-01-24] MEDS: FLUTICASONE 50 MCG NASAL SPRAY 16 GM BOTTLE BOTH NARES SCH (09:49)
--- NOTE | 2017-01-24 12:09 | Hospitalist Progress Note ---
Assessment and Plan (1) Pneumonia Status: Acute Assessment and plan: 1)pneumonia- on levaquin and vanc. fever free for 2 days. cultures remain negative so far- stop vanc. 2)afib- new onset. overlapping lovenox and coumadin. rate controlled with dilt. daily INR. give extra measure of coumadin tonight. 3)diabetes- on lantus, monitor glucose 4)ESRD- //Sun dialysis 5)HTN- losartan restarted to add to clonidine patch and hydralazine. monitor. 6)contusion of left eye- traumatic- he hit his eye on a dresser at home. seen by ophtho as outpatient. monitor while anticoagulating. eye drops. 7)concern for liver disease- abdominal US showed contracted gallbladder, no sig fatty infiltration of liver, kidneys with cortical scarring. Current Visit: Yes Qualifiers: Pneumonia type: due to unspecified organism Laterality: right Lung location: unspecified part of lung Qualified Code(s): J18.9 - Pneumonia, unspecified organism (2) ESRD (end stage renal disease) on dialysis Problem details: Usual schedule //. Status: Chronic Current Visit: No (3) Atrial fibrillation, new onset Status: Acute Current Visit: Yes (4) Contusion/hemorrhage eye Status: Acute Current Visit: Yes (5) Insulin dependent diabetes mellitus Status: Chronic Current Visit: Yes (6) Hypertension Status: Chronic Current Visit: Yes Hospitalist: Subjective Interval history: Mr Leigh is feeling great, reading the newspaper this mornign when I saw him. He is breathing comfortably on 2L NC and is not coughing as much as he was. No fever. Up to move in room without shortness of breath. Exam - Constitutional Vitals: Period Temp Pulse Resp BP Sys/Gao Pulse Ox Last 24 Hr 97.2 F-98.9 F 102-110 17-22 167-197/80-106 84-99 General appearance: no acute distress, over weight - Head Head exam: Present: normocephalic, atraumatic - Eye Eye exam: Present: EOMI. Absent: scleral icterus - Respiratory Respiratory exam: Present: clear to auscultation bilaterally - Cardiovascular Cardiovascular exam: Present: regular rate and rhythm - GI/Abdominal GI/Abdominal exam: Present: normal bowel sounds, soft. Absent: tenderness - Extremities Exam Extremities exam: Absent: edema Results - Labs CBC & BMP: 01/24/17 07:22 01/24/17 07:22 Lab Results: I have reviewed the past 24 hour labs
--- NOTE | 2017-01-24 12:19 | Cardiology Progress Note ---
<Filipe Asifharoon Ford - Last Filed: 01/24/17 13:31> Assessment and Plan - Time spent with patient Time spent with patient: Less than 30 minutes (1) Pneumonia Status: Acute Assessment and plan: SEE PLAN OF CARE LISTED BELOW. Current Visit: Yes Qualifiers: Pneumonia type: due to unspecified organism Laterality: right Lung location: unspecified part of lung Qualified Code(s): J18.9 - Pneumonia, unspecified organism (2) Atrial fibrillation, new onset Status: Acute Assessment and plan: SEE PLAN OF CARE LISTED BELOW. Current Visit: Yes (3) ESRD (end stage renal disease) on dialysis Problem details: Usual schedule //. Status: Chronic Assessment and plan: SEE PLAN OF CARE LISTED BELOW. Current Visit: No (4) Insulin dependent diabetes mellitus Status: Chronic Assessment and plan: SEE PLAN OF CARE LISTED BELOW. Current Visit: Yes (5) Hypertension Status: Chronic Assessment and plan: SEE PLAN OF CARE LISTED BELOW. Current Visit: Yes (6) Pulmonary hypertension Status: Chronic Assessment and plan: SEE PLAN OF CARE LISTED BELOW. Current Visit: Yes Cardiology - PN: Subj Interval history: Strawhat Sizer: Dr. Arthur Mr. Leigh is a 66 year old male without a history of coronary artery disease, end-stage renal disease on hemodialysis, hypertension. Possibly a history of cardiomyopathy. Last reports from Dr. Arthur, including a heart catheterization last year describe a normal systolic function. He was evaluated with left and right heart catheterization for pulmonary hypertension. This was in preparation for possible renal transplantation. The patient was basically admitted for pneumonia. Upon admission he was found to be in atrial fibrillation with rapid ventricular response. He has no documentation of this arrhythmia, does not take anticoagulation. He has no awareness of palpitations or irregularities. No clear contraindication to anticoagulation. January 13, 2017: The patient appears to be improving clinically. He denies any chest pain. He is on O2 via NBP which we have been weaning. He was hoping to be discharged home today; however, when he went to the restroom without his O2 and returned to bed, his SPO2 dropped to 84%. This promptly returned back to 95% after reapplying his O2. Impression and plan: 1. PNEUMONIA -being treated by the hospitalist service. He is receiving IV Vancomycin with pharmacy assisting in dosing. 2. ATRIAL FIBRILLATION, NEW ONSET -he is currently in normal sinus rhythm. His calcium channel yulisa was increased to assist with blood pressure control. The duration and chronicity of his afib are unknown. He is being anticoagulated with full strength Lovenox and Coumadin. His INR remains at 1.2. Coumadin was increased to 6mg po QHS yesterday. We will need to watch his left eye on this anticoagulation. Will further discuss chronic anticoagulation adjustments with Dr. Arthur and await his recommendations. 3. ESRD -on chronic hemodialysis. He is for dialysis TTS. 4. HYPERTENSION - He is on Cardizem for rate control. May consider changing to beta yulisa which would allow us to change/add amlodipine. In the past, he has reportedly been intolerant of calcium channel blockers due to lower extremity edema but seems to be tolerating his current regimen without symptoms. His Losartan was restarted after further questioning revealed he had a productive cough that occurred during the time he was developing his significant bronchitis. We continue to escalate his blood pressure medication regimen. His dose of hydralazine was increased yesterday. We also added clonidine. Will further discuss medication changes with Dr. Arthur as his blood pressure remains elevated today. 5. HYPERLIPIDEMIA - Continue lipid-lowering agent. 6. PULMONARY HYPERTENSION - Chronic. Sleep medicine has been consulted to see him in evaluation for possible sleep apnea. Dr. Arthur to follow with further plan and addendum. Exam (Progress Note) - Constitutional Vitals: Period Temp Pulse Resp BP Sys/Gao Pulse Ox Last 24 Hr 97.2 F-98.9 F 102-110 17-22 167-197/80-106 84-99 Exam: General appearance: normal weight, no acute distress - Head Head exam: Present: normal inspection, normocephalic, atraumatic. Absent: hematoma, laceration - Eye Eye exam: Present: EOMI. sclera on the left side is injected with hemorrhage, although slightly improved from yesterday. Pupils: Present: PERRL. Absent: constricted, dilated, fixed, irregular, unequal - ENT ENT exam: Present: normal exam, normal external ear exam - Neck Neck exam: Present: normal inspection. Absent: lymphadenopathy, meningismus, tenderness, thyromegaly - Respiratory Respiratory exam: Present: Clear to auscultation bilaterally. Absent: accessory muscle use, chest wall tenderness - Cardiovascular Cardiovascular exam: Present: regular rate and rhythm. Absent: carotid bruit, JVD, rubs - GI/Abdominal GI/Abdominal exam: Present: normal bowel sounds, soft. Absent: distended, firm , guarding, hernia, mass, tenderness, rebound. - Extremities Exam Extremities exam: Present: Decreased pulses in the bilateral lower extremities, 1+ BLE edema. Absent: calf tenderness - Back Exam Back exam: Present: normal inspection. Absent: muscle spasm, vertebral tenderness - Neurological Exam Neurological exam: Present: alert, oriented X3, grossly intact without resting or intention tremor - Psychiatric Psychiatric exam: Present: normal affect, normal mood - Skin Skin exam: Present: normal color, warm, dry, intact. Absent: cyanosis, diaphoretic, rash, urticaria Result/EKG - Labs CBC & BMP: 01/24/17 07:22 01/24/17 07:22 Lab Results: I have reviewed the past 24 hour labs Labs: Laboratory Results - last 24 hr 01/23/17 01/23/17 01/24/17 15:13 20:08 07:22 WBC RBC Hgb Hct MCV MCH MCHC RDW Plt Count MPV Neut % (Auto) Lymph % (Auto) [place] % (Auto) Eos % (Auto) Baso % (Auto) Neut # (Auto) Lymph # (Auto) [place] # (Auto) Eos # (Auto) Baso # (Auto) Immature Gran % Nucleated RBC % Immature Gran # Nucleated RBCs # INR PT Patient/Control Mix Sodium Potassium Chloride Carbon Dioxide Anion Gap BUN Creatinine GFR Calculation BUN/Creatinine Ratio Glucose POC Glucose 114 H 193 H Calculated Osmolality Calcium Magnesium B-Natriuretic Peptide 643 H 01/24/17 01/24/17 01/24/17 07:22 07:22 07:22 WBC 5.1 RBC 3.63 L Hgb 11.8 L Hct 34.8 L MCV 95.9 MCH 33 MCHC 33.9 RDW 13.2 Plt Count 137 MPV 10.4 Neut % (Auto) 64.5 Lymph % (Auto) 19.2 L [place] % (Auto) 12.3 Eos % (Auto) 3.2 Baso % (Auto) 0.4 Neut # (Auto) 3.3 Lymph # (Auto) 1.0 L [place] # (Auto) 0.6 Eos # (Auto) 0.2 Baso # (Auto) 0.0 Immature Gran % 0.4 Nucleated RBC % 0.0 Immature Gran # 0.02 Nucleated RBCs # 0.00 INR 1.2 PT Patient/Control Mix 12.6 Sodium 140 Potassium 4.7 Chloride 102 Carbon Dioxide 28 Anion Gap 14.7 BUN 49 H D Creatinine 6.60 H GFR Calculation 12 BUN/Creatinine Ratio 7.00 Glucose 68 L POC Glucose Calculated Osmolality 289.4 Calcium 7.7 L Magnesium 2.1 B-Natriuretic Peptide 01/24/17 01/24/17 07:29 11:43 WBC RBC Hgb Hct MCV MCH MCHC RDW Plt Count MPV Neut % (Auto) Lymph % (Auto) [place] % (Auto) Eos % (Auto) Baso % (Auto) Neut # (Auto) Lymph # (Auto) [place] # (Auto) Eos # (Auto) Baso # (Auto) Immature Gran % Nucleated RBC % Immature Gran # Nucleated RBCs # INR PT Patient/Control Mix Sodium Potassium Chloride Carbon Dioxide Anion Gap BUN Creatinine GFR Calculation BUN/Creatinine Ratio Glucose POC Glucose 60 L 158 H Calculated Osmolality Calcium Magnesium B-Natriuretic Peptide - EKG EKG results: interpreted by me, sinus rhythm <Suad Arthur - Last Filed: 01/24/17 14:55> Assessment and Plan (1) ESRD (end stage renal disease) on dialysis Problem details: Usual schedule //. Status: Chronic Current Visit: No (2) Pneumonia Status: Acute Current Visit: Yes Qualifiers: Pneumonia type: due to unspecified organism Laterality: right Lung location: unspecified part of lung Qualified Code(s): J18.9 - Pneumonia, unspecified organism (3) Atrial fibrillation, new onset Status: Acute Assessment and plan: Increase AV jose alfredo blockade with Coreg Current Visit: Yes (4) Hypertension Status: Chronic Assessment and plan: Multiple rapid escalating agents. Monitor for overshoot. Current Visit: Yes (5) Pulmonary hypertension Status: Chronic Current Visit: Yes Cardiology - PN: Subj Interval history: I saw and examined the patient with Yefri. Mr. Leigh blood pressure remains elevated. Is very difficult to consistently get him to take medications he has been compliant while he is here in the hospital of course we have had problems with many classes of medications and if he reads the supplied pamphlets from the pharmacy frequently discontinues his medicines. The patient' s blood pressure remains elevated his heart remains elevated rate remains elevated. I think we should increase his medications. I think he would benefit from a beta-yulisa as well to. His INR remained subtherapeutic. Oxygenation remains low. Exam (Progress Note) - Constitutional Vitals: Period Temp Pulse Resp BP Sys/Gao Pulse Ox Last 24 Hr 97.2 F-98.9 F 102-110 17-22 167-187/80-106 84-99 - Eye Eye exam: Present: EOMI, other (Left conjunctival hemorrhage) Pupils: Present: BERNADETTE - Respiratory Respiratory exam: Present: clear to auscultation bilaterally - Cardiovascular Cardiovascular exam: Present: tachycardia, other (PMI is laterally displaced he has an S4) - GI/Abdominal GI/Abdominal exam: Present: normal bowel sounds - Extremities Exam Extremities exam: Present: other (Good thrill and bruit at access site on left) - Back Exam Back exam: Present: normal inspection - Neurological Exam Neurological exam: Present: alert, oriented X3 - Psychiatric Psychiatric exam: Present: normal affect, normal mood - Skin Skin exam: Present: normal color, warm, dry Result/EKG - Labs CBC & BMP: 01/24/17 07:22 01/24/17 07:22 Labs: Laboratory Results - last 24 hr 01/23/17 01/23/17 01/24/17 15:13 20:08 07:22 WBC RBC Hgb Hct MCV MCH MCHC RDW Plt Count MPV Neut % (Auto) Lymph % (Auto) [place] % (Auto) Eos % (Auto) Baso % (Auto) Neut # (Auto) Lymph # (Auto) [place] # (Auto) Eos # (Auto) Baso # (Auto) Immature Gran % Nucleated RBC % Immature Gran # Nucleated RBCs # INR PT Patient/Control Mix Sodium Potassium Chloride Carbon Dioxide Anion Gap BUN Creatinine GFR Calculation BUN/Creatinine Ratio Glucose POC Glucose 114 H 193 H Calculated Osmolality Calcium Magnesium B-Natriuretic Peptide 643 H 01/24/17 01/24/17 01/24/17 07:22 07:22 07:22 WBC 5.1 RBC 3.63 L Hgb 11.8 L Hct 34.8 L MCV 95.9 MCH 33 MCHC 33.9 RDW 13.2 Plt Count 137 MPV 10.4 Neut % (Auto) 64.5 Lymph % (Auto) 19.2 L [place] % (Auto) 12.3 Eos % (Auto) 3.2 Baso % (Auto) 0.4 Neut # (Auto) 3.3 Lymph # (Auto) 1.0 L [place] # (Auto) 0.6 Eos # (Auto) 0.2 Baso # (Auto) 0.0 Immature Gran % 0.4 Nucleated RBC % 0.0 Immature Gran # 0.02 Nucleated RBCs # 0.00 INR 1.2 PT Patient/Control Mix 12.6 Sodium 140 Potassium 4.7 Chloride 102 Carbon Dioxide 28 Anion Gap 14.7 BUN 49 H D Creatinine 6.60 H GFR Calculation 12 BUN/Creatinine Ratio 7.00 Glucose 68 L POC Glucose Calculated Osmolality 289.4 Calcium 7.7 L Magnesium 2.1 B-Natriuretic Peptide 01/24/17 01/24/17 07:29 11:43 WBC RBC Hgb Hct MCV MCH MCHC RDW Plt Count MPV Neut % (Auto) Lymph % (Auto) [place] % (Auto) Eos % (Auto) Baso % (Auto) Neut # (Auto) Lymph # (Auto) [place] # (Auto) Eos # (Auto) Baso # (Auto) Immature Gran % Nucleated RBC % Immature Gran # Nucleated RBCs # INR PT Patient/Control Mix Sodium Potassium Chloride Carbon Dioxide Anion Gap BUN Creatinine GFR Calculation BUN/Creatinine Ratio Glucose POC Glucose 60 L 158 H Calculated Osmolality Calcium Magnesium B-Natriuretic Peptide
[2017-01-24] MEDS: LEVOFLOXACIN INJ 500 MG in PREMIX 1 EACH IV SCH (15:47)
[2017-01-24] MEDS: WARFARIN 3 MG TABLET PO SCH (17:28)
[2017-01-24] MEDS ORDERED: WARFARIN 4 MG TABLET PO ONE (18:00)
[2017-01-24] MEDS: ENOXAPARIN 100 MG/ML SYRINGE SUBCUT SCH (18:12)
[2017-01-24] MEDS: TOBRAMYCIN/DEXAMETHASONE 0.3%-0.1% OPH SUSP 2.5 ML BOTTLE LEFT EYE SCH ×2 (18:12→20:46)
[2017-01-24] MEDS: INSULIN GLARGINE 100 UNIT/ML SUBCUT SCH (18:12)
[2017-01-24] MEDS: CARVEDILOL 6.25 MG TABLET PO SCH (20:46)
[2017-01-24] MEDS: traZODone 50 MG TABLET PO SCH (20:47)
[2017-01-25] MEDS: ALBUTEROL/IPRATROPIUM 3 ML NEB RESP TX SCH ×4 (03:09→14:51)
[2017-01-25] MEDS ORDERED: INSULIN GLARGINE 100 UNIT/ML SUBCUT SCH (08:18)
--- NOTE | 2017-01-25 08:44 | Nephrology Progress Note ---
Nephrology - PN: Subj Interval history: Mr. Leigh seen in follow-up of his end-stage renal disease. He is doing well other than some hypoglycemia this morning from which he still feels poorly. His chest is clear. He said he sat up while without his oxygen yesterday and did fairly well. Plan is for dialysis today and he will likely be ready for discharge thereafter. Exam (PN)-Nephrology - Vital Signs Vital signs: Period Temp Pulse Resp BP Sys/Gao Pulse Ox Last 24 Hr 97.4 F-99.3 F 67-107 16-22 149-180/71-106 84-98 - Lab 01/24/17 07:22 01/24/17 07:22 Most recent lab results Calcium 7.7 MG/DL (8.5-10.1) L 01/24/17 07:22 Magnesium 2.1 MG/DL (1.8-2.4) 01/24/17 07:22 Assessment and Plan (1) ESRD (end stage renal disease) on dialysis Problem details: Usual schedule //. Status: Chronic Current Visit: No (2) Atrial fibrillation, new onset Status: Acute Current Visit: Yes (3) Pneumonia Status: Acute Current Visit: Yes Qualifiers: Pneumonia type: due to unspecified organism Laterality: right Lung location: unspecified part of lung Qualified Code(s): J18.9 - Pneumonia, unspecified organism
[2017-01-25] MEDS: DILTIAZEM CD 120 MG CAPSULE PO SCH (08:58)
[2017-01-25] MEDS: PANTOPRAZOLE 40 MG TABLET PO SCH (08:58)
[2017-01-25] MEDS: CINACALCET 30 MG TABLET PO SCH (08:58)
[2017-01-25] MEDS: LOSARTAN 50 MG TABLET PO SCH (08:58)
[2017-01-25] MEDS: SEVELAMER CARBONATE 800 MG TABLET PO SCH ×2 (08:59→14:50)
[2017-01-25] MEDS: ATORVASTATIN 40 MG TABLET PO SCH (08:59)
[2017-01-25] MEDS: CARVEDILOL 6.25 MG TABLET PO SCH (08:59)
[2017-01-25] MEDS: FLUTICASONE 50 MCG NASAL SPRAY 16 GM BOTTLE BOTH NARES SCH (09:00)
[2017-01-25] MEDS: TOBRAMYCIN/DEXAMETHASONE 0.3%-0.1% OPH SUSP 2.5 ML BOTTLE LEFT EYE SCH ×3 (09:00→17:16)
[2017-01-25] MEDS: ALLOPURINOL 100 MG TABLET PO SCH (09:01)
[2017-01-25 09:55] LABS: Basophils % 0.4 % (0.0-0.8); Eosinophils # 0.3 10*3/uL (0.0-0.87); Eosinophils % 4.6 % (0.00-10.9); Hematocrit 33.2 VOL% (42.0-52.0); Hemoglobin 11.1 GM/DL (14.0-18.0); Immature Granulocytes % 0.4 %; Immature Granulocytes Absolute 0.02 #; Lymphocytes # 0.7 10*3/uL (1.4-4.0); Lymphocytes % 12.5 % (21.2-54.2); Mean Corpuscular HGB Conc 33.4 GM/DL (32-36); Mean Corpuscular Hemoglobin 32 PG (27-34); Mean Corpuscular Volume 95.1 FL (87-102); Mean Platelet Volume 10.3 FL (9.6-12.0); Monocytes # 0.6 10*3/uL (0.11-0.8); Neutrophils # 4.1 10*3/uL (1.4-7.4); Neutrophils % 72.1 % (38.7-73.9); Platelet Count 150 T/CUMM (130-400); Red Blood Count 3.49 MC/CUMM (3.8-5.5); Red Cell Distribution Width 13.4 % (9.3-17.3); White Blood Count 5.6 T/CUMM (4-12)
[2017-01-25] MEDS: INSULIN LISPRO 100 UNIT/ML SUBCUT SCH ×3 (09:57→16:49)
[2017-01-25 10:05] LABS: INR 1.4; PT Patient Result 15.4 SECS
--- NOTE | 2017-01-25 10:23 | Cardiology Progress Note ---
<AsifFilipeGlenis E - Last Filed: 01/25/17 11:00> Assessment and Plan - Time spent with patient Time spent with patient: Less than 30 minutes (1) Pneumonia Status: Acute Assessment and plan: SEE PLAN OF CARE LISTED BELOW. Current Visit: Yes Qualifiers: Pneumonia type: due to unspecified organism Laterality: right Lung location: unspecified part of lung Qualified Code(s): J18.9 - Pneumonia, unspecified organism (2) Atrial fibrillation, new onset Status: Acute Assessment and plan: SEE PLAN OF CARE LISTED BELOW. Current Visit: Yes (3) ESRD (end stage renal disease) on dialysis Problem details: Usual schedule //. Status: Chronic Assessment and plan: SEE PLAN OF CARE LISTED BELOW. Current Visit: No (4) Insulin dependent diabetes mellitus Status: Chronic Assessment and plan: SEE PLAN OF CARE LISTED BELOW. Current Visit: Yes (5) Hypertension Status: Chronic Assessment and plan: SEE PLAN OF CARE LISTED BELOW. Current Visit: Yes (6) Pulmonary hypertension Status: Chronic Assessment and plan: SEE PLAN OF CARE LISTED BELOW. Current Visit: Yes Cardiology - PN: Subj Interval history: Insurance Loss Assessor: Dr. Arthur Mr. Leigh is a 66 year old male without a history of coronary artery disease, end-stage renal disease on hemodialysis, hypertension. Possibly a history of cardiomyopathy. Last reports from Dr. Arthur, including a heart catheterization last year describe a normal systolic function. He was evaluated with left and right heart catheterization for pulmonary hypertension. This was in preparation for possible renal transplantation. The patient was basically admitted for pneumonia. Upon admission he was found to be in atrial fibrillation with rapid ventricular response. He has no documentation of this arrhythmia, does not take anticoagulation. He has no awareness of palpitations or irregularities. No clear contraindication to anticoagulation. January 25, 2017: Mr. Leigh is seen in the dialysis unit today. The patient appears to be improving clinically. He denies any chest pain. He is on O2 via NBP which we have been weaning. He has had some issues with decreased SPO2. He is now on 2L O2 via NBP with SPO2 95-98%. He did have some hypoglycemia early this morning with glucose of 47. He reports he is still feeling poorly from this. Impression and plan: 1. PNEUMONIA -being treated by the hospitalist service. He is receiving IV antibiotics and has been fever free x2 days. 2. ATRIAL FIBRILLATION, NEW ONSET -he is currently in normal sinus rhythm. His calcium channel yulisa was increased to assist with blood pressure control. The duration and chronicity of his afib are unknown. He is being anticoagulated with full strength Lovenox and Coumadin. Coumadin was increased to 6mg po QHS. INR 1.4 today. We will need to watch his left eye on this anticoagulation. Will further discuss chronic anticoagulation adjustments with Dr. Arthur and await his recommendations. 3. ESRD -on chronic hemodialysis. He is for dialysis TTS. 4. HYPERTENSION - Mr. Leigh has undergone numerous medication changes in the past and during this hospitalization. He has an issue with compliance at home. He is now on Coreg 6.25mg PO BID, Clonidine patch, Cardizem CD 240mg po daily, Hydralazine 100mg PO TID, Losartan 100mg PO daily. Blood pressure is better on this regimen but remains suboptimally controlled. 5. HYPERLIPIDEMIA - Continue lipid-lowering agent. 6. PULMONARY HYPERTENSION - Chronic. Will continue to work on improving his blood pressure. He may need outpatient follow up with sleep medicine for evaluation of possible sleep apnea. Dr. Arthur to follow with further plan and addendum. Exam (Progress Note) - Constitutional Vitals: Period Temp Pulse Resp BP Sys/Gao Pulse Ox Last 24 Hr 97.4 F-99.3 F 67-107 16-22 149-180/71-106 84-98 Exam: General appearance: normal weight, no acute distress - Head Head exam: Present: normal inspection, normocephalic, atraumatic. Absent: hematoma, laceration - Eye Eye exam: Present: EOMI. sclera on the left side is injected with hemorrhage, although slightly improved from yesterday. Pupils: Present: PERRL. Absent: constricted, dilated, fixed, irregular, unequal - ENT ENT exam: Present: normal exam, normal external ear exam - Neck Neck exam: Present: normal inspection. Absent: lymphadenopathy, meningismus, tenderness, thyromegaly - Respiratory Respiratory exam: Present: Clear to auscultation bilaterally. Absent: accessory muscle use, chest wall tenderness - Cardiovascular Cardiovascular exam: Present: regular rate and rhythm (rates in 90's today), PMI laterally displaced, S4 present. Absent: carotid bruit, JVD, rubs - GI/Abdominal GI/Abdominal exam: Present: normal bowel sounds, soft. Absent: distended, firm , guarding, hernia, mass, tenderness, rebound. - Extremities Exam Extremities exam: Present: Decreased pulses in the bilateral lower extremities, mild chronic BLE edema, good thrill and bruit at left upper arm HD site. Absent : calf tenderness - Back Exam Back exam: Present: normal inspection. Absent: muscle spasm, vertebral tenderness - Neurological Exam Neurological exam: Present: alert, oriented X3, grossly intact without resting or intention tremor - Psychiatric Psychiatric exam: Present: normal affect, normal mood - Skin Skin exam: Present: normal color, warm, dry, intact. Absent: cyanosis, diaphoretic, rash, urticaria Result/EKG - Labs CBC & BMP: 01/25/17 04:20 01/25/17 04:20 Lab Results: I have reviewed the past 24 hour labs Labs: Laboratory Results - last 24 hr 01/24/17 01/24/17 01/24/17 11:43 15:55 20:45 INR PT Patient/Control Mix POC Glucose 158 H 183 H 181 H 01/25/17 01/25/17 01/25/17 06:34 07:37 10:00 INR 1.4 PT Patient/Control Mix 15.4 D POC Glucose 47 L* 60 L - EKG EKG results: interpreted by me, sinus rhythm Specialty Discharge - Follow Up or Referrals Follow up with: Your, PCP [Other] - 01/29/17 (INR in 4 days. new afib, pneumonia) Yodit Neff MD [Physician] - 2 Weeks (new afib ) Mason Naranjo MD [Physician] - <Suad Arthur - Last Filed: 01/25/17 13:03> Assessment and Plan (1) ESRD (end stage renal disease) on dialysis Problem details: Usual schedule //. Status: Chronic Current Visit: No (2) Pneumonia Status: Acute Current Visit: Yes Qualifiers: Pneumonia type: due to unspecified organism Laterality: right Lung location: unspecified part of lung Qualified Code(s): J18.9 - Pneumonia, unspecified organism (3) Atrial fibrillation, new onset Status: Acute Assessment and plan: Right control and anticoagulation Current Visit: Yes (4) Hypertension Status: Chronic Current Visit: Yes (5) Pulmonary hypertension Status: Chronic Current Visit: Yes Cardiology - PN: Subj Interval history: I saw and examined the patient on dialysis. He has a slow trend down and his blood pressures they are very difficult to control. He should continue on anticoagulation if his INR is are at all difficult to control I recommend that we change him over to Eliquis 2.5 mg p.o. twice daily. Coumadin, saw him and that may be a challenge in this patient. I discussed with him about keeping his blood pressure log and follow-up with an INR in 1 week and see me in 2 weeks. Exam (Progress Note) - Constitutional Vitals: Period Temp Pulse Resp BP Sys/Gao Pulse Ox Last 24 Hr 97.4 F-99.3 F 67-107 16-22 149-180/71-86 92-98 - Respiratory Respiratory exam: Present: clear to auscultation bilaterally - Cardiovascular Cardiovascular exam: Present: irregular rhythm (Rates about 90) - GI/Abdominal GI/Abdominal exam: Present: normal bowel sounds Result/EKG - Labs CBC & BMP: 01/25/17 04:20 01/25/17 04:20 Labs: Laboratory Results - last 24 hr 01/24/17 01/24/17 01/25/17 15:55 20:45 04:20 WBC RBC Hgb Hct MCV MCH MCHC RDW Plt Count MPV Neut % (Auto) Lymph % (Auto) [place] % (Auto) Eos % (Auto) Baso % (Auto) Neut # (Auto) Lymph # (Auto) [place] # (Auto) Eos # (Auto) Baso # (Auto) Immature Gran % Nucleated RBC % Immature Gran # Nucleated RBCs # INR PT Patient/Control Mix Sodium Potassium Chloride Carbon Dioxide Anion Gap BUN Creatinine GFR Calculation BUN/Creatinine Ratio Glucose POC Glucose 183 H 181 H Calculated Osmolality Calcium Magnesium Random Vancomycin 11.7 01/25/17 01/25/17 01/25/17 04:20 04:20 06:34 WBC 5.6 RBC 3.49 L Hgb 11.1 L Hct 33.2 L MCV 95.1 MCH 32 MCHC 33.4 RDW 13.4 Plt Count 150 MPV 10.3 Neut % (Auto) 72.1 Lymph % (Auto) 12.5 L [place] % (Auto) 10.0 Eos % (Auto) 4.6 Baso % (Auto) 0.4 Neut # (Auto) 4.1 Lymph # (Auto) 0.7 L [place] # (Auto) 0.6 Eos # (Auto) 0.3 Baso # (Auto) 0.0 Immature Gran % 0.4 Nucleated RBC % 0.0 Immature Gran # 0.02 Nucleated RBCs # 0.00 INR PT Patient/Control Mix Sodium 135 L Potassium 4.9 Chloride 100 Carbon Dioxide 26 Anion Gap 13.9 BUN 58 H Creatinine 6.50 H GFR Calculation 12 BUN/Creatinine Ratio 8.00 Glucose 131 H POC Glucose 47 L* Calculated Osmolality 287.1 Calcium 7.7 L Magnesium 2.2 Random Vancomycin 01/25/17 01/25/17 01/25/17 07:37 10:00 11:55 WBC RBC Hgb Hct MCV MCH MCHC RDW Plt Count MPV Neut % (Auto) Lymph % (Auto) [place] % (Auto) Eos % (Auto) Baso % (Auto) Neut # (Auto) Lymph # (Auto) [place] # (Auto) Eos # (Auto) Baso # (Auto) Immature Gran % Nucleated RBC % Immature Gran # Nucleated RBCs # INR 1.4 PT Patient/Control Mix 15.4 D Sodium Potassium Chloride Carbon Dioxide Anion Gap BUN Creatinine GFR Calculation BUN/Creatinine Ratio Glucose POC Glucose 60 L 89 Calculated Osmolality Calcium Magnesium Random Vancomycin
[2017-01-25 10:37] LABS: Calcium 7.7 MG/DL (8.5-10.1); Magnesium 2.2 MG/DL (1.8-2.4); Osmolality,Calculated 287.1 MOS/KG (273-304); Potassium 4.9 MMOL/L (3.5-5.1)
--- NOTE | 2017-01-25 11:35 | Dialysis Note ---
Dialysis Note - Dialysis Note Mr. Leigh seen during his hemodialysis. His blood pressures 160/80 and heart rate is not rapid. He is tolerating dialysis well.
--- NOTE | 2017-01-25 12:47 | Discharge Summary ---
Hospital Course - Hospital Course Hospital Course: Mr Leigh presented with shortness of breath and rapid afib. He also had pneumonia. He has improved with rate control, anticoagulation initiation, improved control of BP and antibiotics for his pneumonia. His sats are ok on room air. He has continued HD while here. He will go home today and follow up with renal, cardiology and PCP. Dr Arthur will see him in 2 weeks with a Bp log so that his meds can be adjusted if needed. He will stay on coumadin 6mg a day and have an INR in 4 days. He will send his INR to his PCP. He will continue usual routine of dialysis. - Time spent with patient Time with patient DS: Greater than 30 minutes (medicine reconciliation, care coordination with Dr Arthur, documentation took 36 minutes.) Diagnosis - Discharge Diagnosis (1) Pneumonia Status: Acute (2) ESRD (end stage renal disease) on dialysis Status: Chronic (3) Atrial fibrillation, new onset Status: Acute (4) Contusion/hemorrhage eye Status: Acute (5) Insulin dependent diabetes mellitus Status: Chronic (6) Hypertension Status: Chronic Specialty Discharge - Follow Up or Referrals Follow up with: Yodit Neff MD [Physician] - 2 Weeks (new afib ) Mason Naranjo MD [Physician] - Your, PCP [Other] - 01/29/17 (INR in 4 days. new afib, pneumonia) Discharge Plan - Discharge Data Disposition: Disch To Home/Self Care Condition at Discharge: Stable Discharge Diet: diabetic diet, heart healthy Activity: resume usual activities as tolerated - Discharge Medications New Diltiazem Cd Cap [Cardizem CD] 240 mg PO DAILY #30 capsule Insulin Glargine [Lantus] 20 unit SUBCUT QPM unit Levofloxacin Tab [Levaquin Tab] 500 mg PO Q48H #5 tablet cloNIDine 0.1 MG/24 HR PATCH [Lcaiqhkz-ENJ-0 Patch] 1 patch TRANSDERM Q7DAY # 4 patch Fluticasone 50 Mcg Nasal [place] [Flonase Nasal [place]] 1 spray BOTH NARES DAILY #1 spray hydrALAZINE TAB [Apresoline Tab] 100 mg PO TID #90 tablet Warfarin [Coumadin] 6 mg PO DAILY@1800 tablet Continue Allopurinol [Zyloprim] 100 mg PO DAILY Carvedilol [Coreg] 12.5 mg PO BID Atorvastatin [Lipitor] 40 mg PO DAILY Aspirin [Ecotrin] 81 mg PO DAILY Losartan Potassium 100 mg PO DAILY traZODone [Desyrel] 50 mg PO BEDTIME Sevelamer Carbonate Tab [Renvela Tab] 2,400 mg PO TID Cinacalcet [Sensipar] 30 mg PO DAILY Tobramycin/Dexamethasone [Tobramycin/Dexamethasone Oph Susp] 1 drop RIGHT EYE QID Discontinued Insulin Glargine [Lantus] 40 units SUBCUT QPM NIFEdipine [Nifedipine ER] 60 mg PO DAILY - Follow Up or Referral Follow Up: Mason Naranjo MD [Physician] - Yodit Neff MD [Physician] - 2 Weeks (new afib ) Your, PCP [Other] - 1 Week (INR. new afib, pneumonia) - Forms/Instructions Additional Discharge Instructions: INR in 4 days, results to your PCP. see DR Arthur in 2 weeks with a BP log! Exam - Constitutional Vitals: Period Temp Pulse Resp BP Sys/Gao Pulse Ox Last 24 Hr 97.4 F-99.3 F 67-107 16-22 149-180/71-86 92-98 General appearance: no acute distress, over weight - Head Head exam: Present: normocephalic, atraumatic - Eye Eye exam: Present: EOMI. Absent: scleral icterus - Respiratory Respiratory exam: Present: clear to auscultation bilaterally - Cardiovascular Cardiovascular exam: Present: irregular rhythm - GI/Abdominal GI/Abdominal exam: Present: normal bowel sounds, soft. Absent: tenderness - Extremities Exam Extremities exam: Absent: edema Discharge Results Procedures and tests throughout hospitalization: Pending Orders 01/20/17 13:30 Blood Culture Stat 01/26/17 04:00 Prothrombin Time INR IN AM 01/27/17 04:00 Prothrombin Time INR IN AM 01/28/17 04:00 Prothrombin Time INR IN AM Labs on day of discharge: Labs from last 24 hours 01/25/17 01/25/17 01/25/17 11:55 10:00 07:37 WBC RBC Hgb Hct MCV MCH MCHC RDW Plt Count MPV Neut % (Auto) Lymph % (Auto) [place] % (Auto) Eos % (Auto) Baso % (Auto) Neut # (Auto) Lymph # (Auto) [place] # (Auto) Eos # (Auto) Baso # (Auto) Immature Gran % Nucleated RBC % Immature Gran # Nucleated RBCs # INR 1.4 PT Patient/Control Mix 15.4 D Sodium Potassium Chloride Carbon Dioxide Anion Gap BUN Creatinine GFR Calculation BUN/Creatinine Ratio Glucose POC Glucose 89 60 L Calculated Osmolality Calcium Magnesium Random Vancomycin 01/25/17 01/25/17 01/25/17 06:34 04:20 04:20 WBC 5.6 RBC 3.49 L Hgb 11.1 L Hct 33.2 L MCV 95.1 MCH 32 MCHC 33.4 RDW 13.4 Plt Count 150 MPV 10.3 Neut % (Auto) 72.1 Lymph % (Auto) 12.5 L [place] % (Auto) 10.0 Eos % (Auto) 4.6 Baso % (Auto) 0.4 Neut # (Auto) 4.1 Lymph # (Auto) 0.7 L [place] # (Auto) 0.6 Eos # (Auto) 0.3 Baso # (Auto) 0.0 Immature Gran % 0.4 Nucleated RBC % 0.0 Immature Gran # 0.02 Nucleated RBCs # 0.00 INR PT Patient/Control Mix Sodium 135 L Potassium 4.9 Chloride 100 Carbon Dioxide 26 Anion Gap 13.9 BUN 58 H Creatinine 6.50 H GFR Calculation 12 BUN/Creatinine Ratio 8.00 Glucose 131 H POC Glucose 47 L* Calculated Osmolality 287.1 Calcium 7.7 L Magnesium 2.2 Random Vancomycin 01/25/17 01/24/17 01/24/17 04:20 20:45 15:55 WBC RBC Hgb Hct MCV MCH MCHC RDW Plt Count MPV Neut % (Auto) Lymph % (Auto) [place] % (Auto) Eos % (Auto) Baso % (Auto) Neut # (Auto) Lymph # (Auto) [place] # (Auto) Eos # (Auto) Baso # (Auto) Immature Gran % Nucleated RBC % Immature Gran # Nucleated RBCs # INR PT Patient/Control Mix Sodium Potassium Chloride Carbon Dioxide Anion Gap BUN Creatinine GFR Calculation BUN/Creatinine Ratio Glucose POC Glucose 181 H 183 H Calculated Osmolality Calcium Magnesium Random Vancomycin 11.7 Preliminary micro results at discharge 01/20/17 13:30 Blood Culture - Preliminary Blood No growth at 3 days 01/20/17 13:30 Blood Culture - Preliminary Blood No growth at 3 days DS: Provider Date of admission: 01/20/17 14:12 Primary care physician: . No PCP Attending physician on admission: Kalina Valdez MD Consults: 01/20/17 15:20 Consult to Pharmacy [CONS] Routine Reason for Pharmacy Consult: Dose/Manage Vancomycin 01/20/17 15:32 Consult to Physician [CONS] Routine Comment: Consulting Provider: Ida Arroyo When should Consulting Provider be notified: Now Consult to Specialist Group: Pulmonology Person Notified: Dr Arroyo Date Notified: 01/22/17 Time Notified: 10:23 01/20/17 16:09 Consult to Physician [CONS] Routine Comment: dialysis patient, had dialysis today Consulting Provider: Mason Naranjo Consult to Physician [CONS] Routine Comment: new onset afib Consulting Provider: Yodit Neff Person Notified: Dr Neff Date Notified: 01/20/17 Time Notified: 16:30 01/21/17 13:30 Consult to Pharmacy [CONS] Routine Reason for Pharmacy Consult: Other Comment: coumadin Discharging clinician: Kathi Correa MD
--- NOTE | 2017-01-25 16:01 | XRay Report ---
XR chest 1V portable Indication: Hypoxia, pneumonia Comparison: Chest x-ray dated January 21, 2017 Technique: Single frontal view of the chest. Findings: The cardiomediastinal silhouette is stable in configuration. Continued mild cardiomegaly. Mild small scattered opacities within the right perihilar region suspicious for pneumonia or asymmetric pulmonary edema. Visualized osseous and surrounding soft tissue structures appear grossly unchanged.. Vascular stent again noted within the left axillary region. IMPRESSION: As above. PROCEDURE INTERPRETED AT [facility] DEPARTMENT OF RADIOLOGY Final Report Signed by: Dr Noman Artis
[2017-01-25 16:34] VITALS: BP 153/78
[2017-01-25] MEDS: WARFARIN 3 MG TABLET PO SCH (17:15)
--- NOTE | 2017-01-30 13:35 | Physician Query Form ---
CLICK EDIT DOCUMENT TO SELECT QUERY ANSWER --> OK --> SIGN Lavern Flores RN Clinical Case Resource Manager W) [phone] (f) [phone] [email or web address] PROVIDERS: Make your selection(s) from the choices in EACH section by typing an "x" and enter comments in the comment section. Please use your independent medical judgment in providing your response. This request does not imply that any particular answer is desired or expected. CLINICAL INDICATORS: (Providers should not edit this section) Based on documentation of history of CHF. Echo showed "EF of 60%. Moderate concentric left ventricular hypertrophy with diastolic dysfunction." BNP 1024. Monitored with serial lab checks. Please provide further specificity regarding CHF. ACUITY: ( ) Acute ( ) Chronic (x) Acute on Chronic ( ) Clinicallly unable to determine TYPE: ( ) Systolic (HFrEF - heart failure with reduced systolic function/EF) (x ) Diastolic (HFpEF - heart failure with preserved systolic function/EF) ( ) Combined Systolic/Diastolic ( ) Other, please specify: ( ) Clinically unable to determine ( ) The patient does NOT have CHF COMMENTS: PLEASE ALSO DOCUMENT RESPONSE IN PROGRESS NOTES AND/OR DISCHARGE SUMMARY Use of terms such as suspected, likely, or probable (associated with a specific diagnosis that is being evaluated, monitored, or treated as if it exists) are acceptable and can be restated in the discharge summary if not ruled out. MTDD
== END 2017-01-25 17:56 | disposition home or self-care (01) | DRG 871 ==
LOC: N.ED 12:23 → SUATTDRO 14:12 → N.EDINP 14:12 → N.TELEN 15:53
PROVIDERS: ADMIT Internal Medicine; ATTEND Internal Medicine

== ENCOUNTER 2017-09-10 15:00 | Inpatient (IN) ==
[2017-09-10] MEDS ORDERED: ZALEPLON 5 MG CAPSULE PO PRN (16:04)
[2017-09-10] MEDS ORDERED: ONDANSETRON 4 MG/2 ML VIAL IV PRN (16:04)
[2017-09-10] MEDS ORDERED: ACETAMINOPHEN 325 MG TABLET PO PRN (16:04)
[2017-09-10] MEDS ORDERED: DEXTROSE 50% 25 GM/50 ML VIAL IV PRN (16:04)
[2017-09-10] MEDS ORDERED: GLUCAGON 1 MG VIAL IM PRN (16:04)
[2017-09-10] MEDS: INSULIN LISPRO 100 UNIT/ML SUBCUT SCH ×2 (17:13→21:19)
[2017-09-10] MEDS ORDERED: cefTRIAXone 1,000 MG in SYRINGE 1 EACH IV SCH (17:30)
[2017-09-10] MEDS ORDERED: AZITHROMYCIN INJ 250 MG in SODIUM CHLORIDE 0.9% 250 ML IV SCH (18:00)
[2017-09-10 18:01] LABS: Basophils % 0.4 % (0.0-0.8); Eosinophils # 0.2 10*3/uL (0.0-0.87); Eosinophils % 3.2 % (0.00-10.9); Hematocrit 28.6 VOL% (42.0-52.0); Hemoglobin 9.3 GM/DL (14.0-18.0); Immature Granulocytes % 0.6 %; Immature Granulocytes Absolute 0.04 #; Lymphocytes # 1.2 10*3/uL (1.4-4.0); Lymphocytes % 15.9 % (21.2-54.2); Mean Corpuscular HGB Conc 32.5 GM/DL (32-36); Mean Corpuscular Hemoglobin 31 PG (27-34); Mean Platelet Volume 11.1 FL (9.6-12.0); Monocytes # 0.5 10*3/uL (0.11-0.8); Monocytes % 6.8 % (1.7-12.7); Neutrophils # 5.3 10*3/uL (1.4-7.4); Neutrophils % 73.1 % (38.7-73.9); Platelet Count 149 T/CUMM (130-400); Red Blood Count 2.98 MC/CUMM (3.8-5.5); Red Cell Distribution Width 15.7 % (9.3-17.3); White Blood Count 7.2 T/CUMM (4-12)
[2017-09-10 18:06] LABS: INR 2.9
[2017-09-10 18:10] LABS: PT Patient Result 29.8 SECS
[2017-09-10] MEDS ORDERED: EPOETIN ALFA 2,000 UNIT/1 ML VIAL IV PRN (18:19)
[2017-09-10] MEDS: ASPIRIN EC 81 MG TABLET PO SCH (18:24)
[2017-09-10] MEDS: DILTIAZEM CD 120 MG CAPSULE PO SCH (18:24)
[2017-09-10] MEDS: PYRIDOXINE 50 MG TABLET PO SCH (18:25)
[2017-09-10] MEDS: PANTOPRAZOLE 40 MG TABLET PO SCH ×2 (18:31→21:19)
[2017-09-10 18:51] LABS: Thyroid Stimulating Hormone 0.532 uIU/ml (0.358-3.74)
[2017-09-10] MEDS ORDERED: INSULIN GLARGINE 100 UNIT/ML SUBCUT SCH (19:00)
[2017-09-10 19:11] LABS: % Iron Saturation 27.2 % (18-50)
[2017-09-10 19:23] LABS: Albumin 3.9 G/DL (3.4-5.0); Bilirubin,Total 0.7 MG/DL (0.2-1.0); Calcium 8.3 MG/DL (8.5-10.1); Potassium 4.5 MMOL/L (3.5-5.1); Total Protein 7.6 G/DL (6.4-8.3)
[2017-09-10 20:59] LABS: Apearance,Urine CLEAR (Clear); Bilirubin,Urine Negative (Negative); Blood, Urine Negative (Negative); Glucose,Urine (UA) 50 mg/dL (Negative); Ketones,Urine Negative (Negative); Nitrite,Urine Negative (Negative); Protein,Urine 100 MG/DL; RBC,Urine 2 /HPF (0-4); Urine Color Yellow (Yellow); Urine Urobilinogen < 2.0 EU/DL (0.2-1.0); WBC,Urine <1 /HPF (0-6)
[2017-09-10] MEDS ORDERED: WARFARIN 4 MG TABLET PO SCH (21:00)
[2017-09-10] MEDS: TRIAMCINOLONE 0.1% CREAM 15 GM TUBE TOP SCH (21:18)
[2017-09-10] MEDS ORDERED: FLUTICASONE 50 MCG NASAL SPRAY 16 GM BOTTLE BOTH NARES PRN (21:34)
[2017-09-11 05:20] LABS: Hepatitis A Ab IgM Quant 0.09 Index; Hepatitis A Ab IgM Result Negative (Negative); Hepatitis B Core IgM Quant 0.11 Index; Hepatitis B Core IgM Result Negative (Negative)
[2017-09-11 05:21] LABS: Hepatitis C Virus Ab Quant 0.03 Index; Hepatitis C Virus Ab Result Negative (Negative)
[2017-09-11 05:53] LABS: Hepatitis B Surface Ag Quant < 0.10 Index; Hepatitis B Surface Ag Result Negative (Negative)
[2017-09-11 06:17] LABS: Basophils % 0.5 % (0.0-0.8); Eosinophils # 0.3 10*3/uL (0.0-0.87); Eosinophils % 3.7 % (0.00-10.9); Hematocrit 29.5 VOL% (42.0-52.0); Hemoglobin 9.6 GM/DL (14.0-18.0); Immature Granulocytes % 0.5 %; Immature Granulocytes Absolute 0.04 #; Lymphocytes % 13.4 % (21.2-54.2); Mean Corpuscular HGB Conc 32.5 GM/DL (32-36); Mean Corpuscular Hemoglobin 32 PG (27-34); Mean Corpuscular Volume 97.4 FL (87-102); Mean Platelet Volume 10.7 FL (9.6-12.0); Monocytes # 0.7 10*3/uL (0.11-0.8); Monocytes % 9.3 % (1.7-12.7); Neutrophils # 5.6 10*3/uL (1.4-7.4); Neutrophils % 72.6 % (38.7-73.9); Platelet Count 158 T/CUMM (130-400); Red Blood Count 3.03 MC/CUMM (3.8-5.5); Red Cell Distribution Width 15.9 % (9.3-17.3); White Blood Count 7.6 T/CUMM (4-12)
[2017-09-11 06:30] LABS: INR 2.6
[2017-09-11 06:33] LABS: PT Patient Result 26.7 SECS
[2017-09-11 06:48] LABS: Calcium 8.3 MG/DL (8.5-10.1); Osmolality,Calculated 298.8 MOS/KG (273-304); Potassium 4.4 MMOL/L (3.5-5.1)
[2017-09-11] MEDS ORDERED: PANTOPRAZOLE 40 MG TABLET PO SCH (09:00)
[2017-09-11] MEDS: INSULIN LISPRO 100 UNIT/ML SUBCUT SCH ×4 (09:45→21:17)
[2017-09-11] MEDS: DILTIAZEM CD 120 MG CAPSULE PO SCH (13:55)
[2017-09-11] MEDS: ALLOPURINOL 100 MG TABLET PO SCH (13:55)
[2017-09-11] MEDS: TRIAMCINOLONE 0.1% CREAM 15 GM TUBE TOP SCH ×2 (13:55→21:17)
[2017-09-11] MEDS: ATORVASTATIN 40 MG TABLET PO SCH (13:55)
[2017-09-11] MEDS: PYRIDOXINE 50 MG TABLET PO SCH (13:55)
[2017-09-11] MEDS: ASPIRIN EC 81 MG TABLET PO SCH (13:55)
[2017-09-11] MEDS ORDERED: WARFARIN 3 MG TABLET PO SCH (17:00)
[2017-09-11] MEDS: PANTOPRAZOLE 40 MG TABLET PO SCH (21:17)
[2017-09-12] MEDS: ASPIRIN EC 81 MG TABLET PO SCH (08:20)
[2017-09-12] MEDS: ATORVASTATIN 40 MG TABLET PO SCH (08:20)
[2017-09-12] MEDS: ALLOPURINOL 100 MG TABLET PO SCH (08:20)
[2017-09-12] MEDS: PYRIDOXINE 50 MG TABLET PO SCH (08:21)
[2017-09-12] MEDS: DILTIAZEM CD 120 MG CAPSULE PO SCH (08:21)
[2017-09-12] MEDS: INSULIN LISPRO 100 UNIT/ML SUBCUT SCH ×2 (08:21→12:55)
[2017-09-12 08:41] LABS: INR 2.2
[2017-09-12 08:43] LABS: PT Patient Result 22.5 SECS
[2017-09-12] MEDS ORDERED: INSULIN GLARGINE 100 UNIT/ML SUBCUT SCH (09:00)
[2017-09-12] MEDS: TRIAMCINOLONE 0.1% CREAM 15 GM TUBE TOP SCH (10:43)
[2017-09-12 16:26] VITALS: BP 165/74
== END 2017-09-12 17:16 | disposition home or self-care (01) | DRG 291 ==
LOC: EDBD → EDUNIT# → N.ED 15:00 → N.EDINP 15:39 → N.5E 16:30
PROVIDERS: ADMIT Internal Medicine; ATTEND Internal Medicine

== ENCOUNTER 2018-03-12 02:45 | Inpatient (IN) ==
[2018-03-12] MEDS ORDERED: SODIUM CHLORIDE 0.9% 1,000 ML IV PRN (03:21)
[2018-03-12 03:44] LABS: Basophils # 0.1 10*3/uL (0.0-0.2); Basophils % 0.8 % (0.0-0.8); Eosinophils # 0.5 10*3/uL (0.0-0.87); Hematocrit 24.9 VOL% (42.0-52.0); Immature Granulocytes % 0.5 %; Immature Granulocytes Absolute 0.03 #; Lymphocytes % 16.9 % (21.2-54.2); Mean Corpuscular HGB Conc 32.1 GM/DL (32-36); Mean Corpuscular Hemoglobin 30 PG (27-34); Mean Corpuscular Volume 94.7 FL (87-102); Mean Platelet Volume 11.7 FL (9.6-12.0); Monocytes # 0.6 10*3/uL (0.11-0.8); Monocytes % 10.3 % (1.7-12.7); Neutrophils # 3.8 10*3/uL (1.4-7.4); Neutrophils % 63.5 % (38.7-73.9); Platelet Count 154 T/CUMM (130-400); Red Blood Count 2.63 MC/CUMM (3.8-5.5)
[2018-03-12 03:52] LABS: INR 2.5; Partial Thromboplastin Time 32.9 SECS (0-40)
[2018-03-12 04:00] LABS: PT Patient Result 25.4 SECS
[2018-03-12 04:09] LABS: Albumin 3.4 G/DL (3.4-5.0); Calcium 7.2 MG/DL (8.5-10.1); Osmolality,Calculated 305.5 MOS/KG (273-304); Potassium 4.1 MMOL/L (3.5-5.1); Total Protein 7.2 G/DL (6.4-8.3)
[2018-03-12] MEDS ORDERED: ONDANSETRON 4 MG/2 ML VIAL IV PRN (05:49)
[2018-03-12] MEDS ORDERED: EPOETIN ALFA 2,000 UNIT/1 ML VIAL IV PRN (05:52)
[2018-03-12 07:24] LABS: % Iron Saturation 38.4 % (18-50); Ferritin 707.3 ng/ml (26-388)
[2018-03-12] MEDS: SEVELAMER CARBONATE 800 MG TABLET PO SCH ×3 (08:00→17:00)
[2018-03-12] MEDS: PYRIDOXINE 50 MG TABLET PO SCH (09:00)
[2018-03-12] MEDS: DILTIAZEM CD 120 MG CAPSULE PO SCH (09:00)
[2018-03-12] MEDS: CARVEDILOL 6.25 MG TABLET PO SCH ×2 (09:00→20:47)
[2018-03-12] MEDS: hydrOXYzine HCL 25 MG TABLET PO SCH ×3 (09:00→21:12)
[2018-03-12] MEDS: CINACALCET 30 MG TABLET PO SCH (09:00)
[2018-03-12] MEDS: ALLOPURINOL 100 MG TABLET PO SCH (09:00)
[2018-03-12] MEDS ORDERED: SEVELAMER CARBONATE 800 MG TABLET PO SCH (09:00)
[2018-03-12] MEDS: PANTOPRAZOLE 40 MG VIAL IV SCH ×2 (10:10→20:48)
[2018-03-12 10:48] LABS: Hemoglobin 7.8 GM/DL (14.0-18.0)
[2018-03-12] MEDS ORDERED: SEVELAMER CARBONATE 800 MG TABLET PO PRN (15:29)
[2018-03-12 15:52] LABS: Hematocrit 23.7 VOL% (42.0-52.0); Hemoglobin 7.7 GM/DL (14.0-18.0)
[2018-03-12] MEDS ORDERED: INSULIN DEGLUDEC 30 UNIT SUBCUT SCH (19:00)
[2018-03-12] MEDS: MINOXIDIL 2.5 MG TABLET PO SCH (20:11)
[2018-03-12] MEDS: ATORVASTATIN 40 MG TABLET PO SCH (20:47)
[2018-03-12 22:02] LABS: Hematocrit 24.4 VOL% (42.0-52.0); Hemoglobin 7.9 GM/DL (14.0-18.0)
[2018-03-13 06:48] LABS: Basophils % 0.3 % (0.0-0.8); Eosinophils # 0.4 10*3/uL (0.0-0.87); Eosinophils % 6.2 % (0.00-10.9); Hematocrit 22.3 VOL% (42.0-52.0); Hemoglobin 7.2 GM/DL (14.0-18.0); Immature Granulocytes % 0.3 %; Immature Granulocytes Absolute 0.02 #; Lymphocytes # 0.9 10*3/uL (1.4-4.0); Lymphocytes % 15.2 % (21.2-54.2); Mean Corpuscular HGB Conc 32.3 GM/DL (32-36); Mean Corpuscular Hemoglobin 30 PG (27-34); Mean Corpuscular Volume 92.9 FL (87-102); Mean Platelet Volume 11.3 FL (9.6-12.0); Monocytes # 0.5 10*3/uL (0.11-0.8); Neutrophils # 4.3 10*3/uL (1.4-7.4); Platelet Count 186 T/CUMM (130-400); Red Cell Distribution Width 16.1 % (9.3-17.3); White Blood Count 6.1 T/CUMM (4-12)
[2018-03-13 06:59] LABS: INR 2.4
[2018-03-13 07:00] LABS: PT Patient Result 24.9 SECS
[2018-03-13 07:09] LABS: Calcium 7.3 MG/DL (8.5-10.1); Osmolality,Calculated 298.4 MOS/KG (273-304); Potassium 3.8 MMOL/L (3.5-5.1)
[2018-03-13] MEDS ORDERED: GLUCAGON 1 MG VIAL IM PRN (07:42)
[2018-03-13] MEDS ORDERED: DEXTROSE 50% 25 GM/50 ML VIAL IV PRN (07:42)
[2018-03-13] MEDS ORDERED: PHYTONADIONE 10 MG/1 ML AMP SUBCUT ONE (08:05)
[2018-03-13] MEDS ORDERED: SODIUM CHLORIDE 0.9% 1,000 ML IV PRN (08:27)
[2018-03-13] MEDS: PANTOPRAZOLE 40 MG VIAL IV SCH ×2 (10:33→22:26)
[2018-03-13] MEDS: CINACALCET 30 MG TABLET PO SCH (12:27)
[2018-03-13] MEDS: CARVEDILOL 6.25 MG TABLET PO SCH ×2 (12:27→22:24)
[2018-03-13] MEDS: ALLOPURINOL 100 MG TABLET PO SCH (12:28)
[2018-03-13] MEDS: PYRIDOXINE 50 MG TABLET PO SCH (12:28)
[2018-03-13] MEDS: hydrOXYzine HCL 25 MG TABLET PO SCH ×3 (12:28→22:24)
[2018-03-13] MEDS: SEVELAMER CARBONATE 800 MG TABLET PO SCH ×3 (12:30→20:32)
[2018-03-13] MEDS: DILTIAZEM CD 120 MG CAPSULE PO SCH (12:31)
[2018-03-13 21:13] LABS: Hematocrit 27.8 VOL% (42.0-52.0)
[2018-03-13 21:17] LABS: Hemoglobin 9.1 GM/DL (14.0-18.0)
[2018-03-13] MEDS: ATORVASTATIN 40 MG TABLET PO SCH (22:24)
[2018-03-13] MEDS: MINOXIDIL 2.5 MG TABLET PO SCH (22:24)
[2018-03-14 07:33] LABS: Basophils # 0.1 10*3/uL (0.0-0.2); Basophils % 0.7 % (0.0-0.8); Eosinophils # 0.4 10*3/uL (0.0-0.87); Eosinophils % 6.1 % (0.00-10.9); Hematocrit 24.6 VOL% (42.0-52.0); Immature Granulocytes % 0.6 %; Immature Granulocytes Absolute 0.04 #; Lymphocytes # 1.2 10*3/uL (1.4-4.0); Lymphocytes % 17.1 % (21.2-54.2); Mean Corpuscular HGB Conc 32.5 GM/DL (32-36); Mean Corpuscular Hemoglobin 30 PG (27-34); Mean Corpuscular Volume 91.8 FL (87-102); Mean Platelet Volume 10.7 FL (9.6-12.0); Monocytes # 0.7 10*3/uL (0.11-0.8); Monocytes % 9.2 % (1.7-12.7); Neutrophils # 4.8 10*3/uL (1.4-7.4); Neutrophils % 66.3 % (38.7-73.9); Platelet Count 179 T/CUMM (130-400); Red Blood Count 2.68 MC/CUMM (3.8-5.5); Red Cell Distribution Width 16.9 % (9.3-17.3); White Blood Count 7.2 T/CUMM (4-12)
[2018-03-14 07:36] LABS: INR 1.7; PT Patient Result 17.8 SECS
[2018-03-14] MEDS: CARVEDILOL 6.25 MG TABLET PO SCH ×2 (08:56→20:45)
[2018-03-14] MEDS: DILTIAZEM CD 120 MG CAPSULE PO SCH (08:56)
[2018-03-14] MEDS: hydrOXYzine HCL 25 MG TABLET PO SCH ×4 (08:56→20:45)
[2018-03-14] MEDS: PANTOPRAZOLE 40 MG VIAL IV SCH ×2 (08:56→20:42)
[2018-03-14] MEDS: ALLOPURINOL 100 MG TABLET PO SCH (08:56)
[2018-03-14] MEDS: SEVELAMER CARBONATE 800 MG TABLET PO SCH ×3 (08:56→17:14)
[2018-03-14] MEDS: PYRIDOXINE 50 MG TABLET PO SCH (17:08)
[2018-03-14] MEDS: CINACALCET 30 MG TABLET PO SCH (17:10)
[2018-03-14] MEDS: MINOXIDIL 2.5 MG TABLET PO SCH (20:44)
[2018-03-14] MEDS: ATORVASTATIN 40 MG TABLET PO SCH (20:45)
[2018-03-15 06:38] LABS: Basophils % 0.6 % (0.0-0.8); Eosinophils # 0.4 10*3/uL (0.0-0.87); Eosinophils % 5.6 % (0.00-10.9); Hematocrit 23.8 VOL% (42.0-52.0); Hemoglobin 7.9 GM/DL (14.0-18.0); Immature Granulocytes % 0.3 %; Immature Granulocytes Absolute 0.02 #; Lymphocytes # 1.3 10*3/uL (1.4-4.0); Lymphocytes % 17.7 % (21.2-54.2); Mean Corpuscular HGB Conc 33.2 GM/DL (32-36); Mean Corpuscular Hemoglobin 30 PG (27-34); Mean Corpuscular Volume 89.5 FL (87-102); Mean Platelet Volume 10.6 FL (9.6-12.0); Monocytes # 0.6 10*3/uL (0.11-0.8); Monocytes % 8.9 % (1.7-12.7); NRBC # 0.02 10*3/uL; Neutrophils # 4.8 10*3/uL (1.4-7.4); Neutrophils % 66.9 % (38.7-73.9); Platelet Count 207 T/CUMM (130-400); Red Blood Count 2.66 MC/CUMM (3.8-5.5); Red Cell Distribution Width 16.7 % (9.3-17.3); White Blood Count 7.2 T/CUMM (4-12)
[2018-03-15 06:56] LABS: INR 1.4; PT Patient Result 14.3 SECS
[2018-03-15] MEDS ORDERED: SODIUM CHLORIDE 0.9% 1,000 ML IV PRN (07:12)
[2018-03-15] MEDS ORDERED: PHYTONADIONE 10 MG/1 ML AMP SUBCUT ONE (07:15)
[2018-03-15] MEDS: DILTIAZEM CD 120 MG CAPSULE PO SCH (09:19)
[2018-03-15] MEDS: CARVEDILOL 6.25 MG TABLET PO SCH ×2 (09:19→21:39)
[2018-03-15] MEDS: SEVELAMER CARBONATE 800 MG TABLET PO SCH ×3 (09:19→17:36)
[2018-03-15] MEDS: hydrOXYzine HCL 25 MG TABLET PO SCH ×3 (09:20→21:38)
[2018-03-15] MEDS: PYRIDOXINE 50 MG TABLET PO SCH (09:20)
[2018-03-15] MEDS: ALLOPURINOL 100 MG TABLET PO SCH (09:20)
[2018-03-15] MEDS: FLUTICASONE 50 MCG NASAL SPRAY 16 GM BOTTLE BOTH NARES PRN (09:31)
[2018-03-15] MEDS: CINACALCET 30 MG TABLET PO SCH (09:32)
[2018-03-15] MEDS: COLESTIPOL 1 GM TABLET PO SCH ×2 (11:57→21:38)
[2018-03-15] MEDS: MINOXIDIL 2.5 MG TABLET PO SCH (19:28)
[2018-03-15] MEDS: PANTOPRAZOLE 40 MG TABLET PO SCH (19:29)
[2018-03-15] MEDS: ATORVASTATIN 40 MG TABLET PO SCH (21:39)
[2018-03-16] MEDS: PANTOPRAZOLE 40 MG TABLET PO SCH ×2 (06:00→18:27)
[2018-03-16] MEDS: CARVEDILOL 6.25 MG TABLET PO SCH ×2 (08:25→20:35)
[2018-03-16] MEDS: ALLOPURINOL 100 MG TABLET PO SCH (08:25)
[2018-03-16] MEDS: CINACALCET 30 MG TABLET PO SCH (08:25)
[2018-03-16] MEDS: hydrOXYzine HCL 25 MG TABLET PO SCH ×3 (08:25→20:35)
[2018-03-16] MEDS: SEVELAMER CARBONATE 800 MG TABLET PO SCH ×3 (08:25→17:38)
[2018-03-16] MEDS: PYRIDOXINE 50 MG TABLET PO SCH (08:26)
[2018-03-16] MEDS: DILTIAZEM CD 120 MG CAPSULE PO SCH (08:26)
[2018-03-16] MEDS: COLESTIPOL 1 GM TABLET PO SCH ×2 (10:46→20:35)
[2018-03-16] MEDS: INSULIN REGULAR 100 UNIT/ML SUBCUT SCH ×3 (11:59→20:35)
[2018-03-16 13:37] LABS: Basophils # 0.1 10*3/uL (0.0-0.2); Basophils % 0.6 % (0.0-0.8); Eosinophils # 0.6 10*3/uL (0.0-0.87); Eosinophils % 7.6 % (0.00-10.9); Hematocrit 26.1 VOL% (42.0-52.0); Hemoglobin 8.9 GM/DL (14.0-18.0); Immature Granulocytes % 0.4 %; Immature Granulocytes Absolute 0.03 #; Lymphocytes # 1.3 10*3/uL (1.4-4.0); Lymphocytes % 17.2 % (21.2-54.2); Mean Corpuscular HGB Conc 34.1 GM/DL (32-36); Mean Corpuscular Hemoglobin 30 PG (27-34); Mean Corpuscular Volume 88.8 FL (87-102); Mean Platelet Volume 9.7 FL (9.6-12.0); Monocytes # 0.7 10*3/uL (0.11-0.8); Neutrophils % 65.2 % (38.7-73.9); Platelet Count 192 T/CUMM (130-400); Red Blood Count 2.94 MC/CUMM (3.8-5.5); Red Cell Distribution Width 15.9 % (9.3-17.3); White Blood Count 7.7 T/CUMM (4-12)
[2018-03-16 13:47] LABS: INR 1.2; PT Patient Result 12.7 SECS
[2018-03-16 14:00] LABS: Calcium 7.2 MG/DL (8.5-10.1); Osmolality,Calculated 287.8 MOS/KG (273-304); Potassium 3.4 MMOL/L (3.5-5.1)
[2018-03-16] MEDS ORDERED: INSULIN REGULAR 100 UNIT/ML SUBCUT SCH (16:30)
[2018-03-16] MEDS: PIPERACILLIN/TAZOBACTAM 3,375 MG in SODIUM CHLORIDE 0.9% 100 ML IV SCH (16:53)
[2018-03-16] MEDS: MINOXIDIL 2.5 MG TABLET PO SCH (18:27)
[2018-03-16] MEDS: ATORVASTATIN 40 MG TABLET PO SCH (20:35)
[2018-03-17] MEDS: PIPERACILLIN/TAZOBACTAM 3,375 MG in SODIUM CHLORIDE 0.9% 100 ML IV SCH ×2 (05:42→17:55)
[2018-03-17] MEDS: DILTIAZEM CD 120 MG CAPSULE PO SCH (08:30)
[2018-03-17] MEDS: hydrOXYzine HCL 25 MG TABLET PO SCH ×3 (08:30→20:54)
[2018-03-17] MEDS: CARVEDILOL 6.25 MG TABLET PO SCH ×2 (08:30→20:54)
[2018-03-17] MEDS: PYRIDOXINE 50 MG TABLET PO SCH (08:31)
[2018-03-17] MEDS: SEVELAMER CARBONATE 800 MG TABLET PO SCH ×3 (08:31→17:54)
[2018-03-17] MEDS: PANTOPRAZOLE 40 MG TABLET PO SCH ×2 (08:31→18:00)
[2018-03-17] MEDS: ALLOPURINOL 100 MG TABLET PO SCH (08:31)
[2018-03-17] MEDS: CINACALCET 30 MG TABLET PO SCH (08:32)
[2018-03-17] MEDS: FLUTICASONE 50 MCG NASAL SPRAY 16 GM BOTTLE BOTH NARES PRN (08:36)
[2018-03-17] MEDS: INSULIN REGULAR 100 UNIT/ML SUBCUT SCH ×4 (09:45→21:34)
[2018-03-17 10:28] LABS: Basophils % 0.5 % (0.0-0.8); Eosinophils # 0.5 10*3/uL (0.0-0.87); Hematocrit 25.5 VOL% (42.0-52.0); Hemoglobin 8.3 GM/DL (14.0-18.0); Immature Granulocytes % 0.3 %; Immature Granulocytes Absolute 0.02 #; Lymphocytes # 1.4 10*3/uL (1.4-4.0); Mean Corpuscular HGB Conc 32.5 GM/DL (32-36); Mean Corpuscular Hemoglobin 30 PG (27-34); Mean Corpuscular Volume 91.4 FL (87-102); Monocytes # 0.7 10*3/uL (0.11-0.8); Monocytes % 9.6 % (1.7-12.7); Neutrophils # 4.9 10*3/uL (1.4-7.4); Neutrophils % 64.6 % (38.7-73.9); Platelet Count 187 T/CUMM (130-400); Red Blood Count 2.79 MC/CUMM (3.8-5.5); Red Cell Distribution Width 16.3 % (9.3-17.3); White Blood Count 7.6 T/CUMM (4-12)
[2018-03-17 10:37] LABS: INR 1.2; PT Patient Result 12.7 SECS
[2018-03-17] MEDS: COLESTIPOL 1 GM TABLET PO SCH ×2 (10:56→20:53)
[2018-03-17] MEDS: MINOXIDIL 2.5 MG TABLET PO SCH (18:00)
[2018-03-17] MEDS: ATORVASTATIN 40 MG TABLET PO SCH (20:54)
[2018-03-18] MEDS: PIPERACILLIN/TAZOBACTAM 3,375 MG in SODIUM CHLORIDE 0.9% 100 ML IV SCH (05:56)
[2018-03-18] MEDS: PANTOPRAZOLE 40 MG TABLET PO SCH ×2 (06:00→18:18)
[2018-03-18 08:25] LABS: Basophils # 0.1 10*3/uL (0.0-0.2); Basophils % 0.7 % (0.0-0.8); Eosinophils # 0.6 10*3/uL (0.0-0.87); Eosinophils % 7.7 % (0.00-10.9); Hematocrit 26.3 VOL% (42.0-52.0); Hemoglobin 8.8 GM/DL (14.0-18.0); Immature Granulocytes % 0.4 %; Immature Granulocytes Absolute 0.03 #; Lymphocytes # 1.3 10*3/uL (1.4-4.0); Lymphocytes % 17.8 % (21.2-54.2); Mean Corpuscular HGB Conc 33.5 GM/DL (32-36); Mean Corpuscular Hemoglobin 30 PG (27-34); Mean Corpuscular Volume 90.4 FL (87-102); Mean Platelet Volume 10.1 FL (9.6-12.0); Monocytes # 0.8 10*3/uL (0.11-0.8); Monocytes % 10.3 % (1.7-12.7); Neutrophils # 4.6 10*3/uL (1.4-7.4); Neutrophils % 63.1 % (38.7-73.9); Platelet Count 186 T/CUMM (130-400); Red Blood Count 2.91 MC/CUMM (3.8-5.5); Red Cell Distribution Width 16.5 % (9.3-17.3); White Blood Count 7.4 T/CUMM (4-12)
[2018-03-18 08:38] LABS: INR 1.1
[2018-03-18 08:50] LABS: Calcium 6.7 MG/DL (8.5-10.1); Potassium 4.5 MMOL/L (3.5-5.1)
[2018-03-18] MEDS: ALLOPURINOL 100 MG TABLET PO SCH (10:30)
[2018-03-18] MEDS: INSULIN REGULAR 100 UNIT/ML SUBCUT SCH ×4 (10:30→21:46)
[2018-03-18] MEDS: CARVEDILOL 6.25 MG TABLET PO SCH ×2 (10:31→21:44)
[2018-03-18] MEDS: SEVELAMER CARBONATE 800 MG TABLET PO SCH ×3 (10:31→16:49)
[2018-03-18] MEDS: COLESTIPOL 1 GM TABLET PO SCH ×2 (10:31→21:43)
[2018-03-18] MEDS: DILTIAZEM CD 120 MG CAPSULE PO SCH (10:31)
[2018-03-18] MEDS: CINACALCET 30 MG TABLET PO SCH (10:32)
[2018-03-18] MEDS: hydrOXYzine HCL 25 MG TABLET PO SCH ×3 (10:32→21:43)
[2018-03-18] MEDS: PYRIDOXINE 50 MG TABLET PO SCH (10:32)
[2018-03-18] MEDS ORDERED: BISACODYL 5 MG TABLET PO ONE (12:00)
[2018-03-18] MEDS ORDERED: POLYETHYLENE GLYCOL POWDER 255 GM BOTTLE PO ONE (13:44)
[2018-03-18] MEDS: MINOXIDIL 2.5 MG TABLET PO SCH (18:18)
[2018-03-18] MEDS ORDERED: MAGNESIUM CITRATE 300 ML BOTTLE PO ONE (21:24)
[2018-03-18] MEDS: ATORVASTATIN 40 MG TABLET PO SCH (21:44)
[2018-03-19] MEDS: PANTOPRAZOLE 40 MG TABLET PO SCH (06:31)
[2018-03-19 07:06] LABS: Basophils # 0.1 10*3/uL (0.0-0.2); Basophils % 0.8 % (0.0-0.8); Eosinophils # 0.7 10*3/uL (0.0-0.87); Eosinophils % 8.5 % (0.00-10.9); Hematocrit 26.3 VOL% (42.0-52.0); Hemoglobin 8.8 GM/DL (14.0-18.0); Immature Granulocytes % 0.3 %; Immature Granulocytes Absolute 0.02 #; Lymphocytes # 1.2 10*3/uL (1.4-4.0); Lymphocytes % 15.2 % (21.2-54.2); Mean Corpuscular HGB Conc 33.5 GM/DL (32-36); Mean Corpuscular Hemoglobin 30 PG (27-34); Mean Corpuscular Volume 90.7 FL (87-102); Monocytes # 0.7 10*3/uL (0.11-0.8); Monocytes % 9.4 % (1.7-12.7); Neutrophils % 65.8 % (38.7-73.9); Platelet Count 196 T/CUMM (130-400); Red Cell Distribution Width 15.9 % (9.3-17.3); White Blood Count 7.7 T/CUMM (4-12)
[2018-03-19 07:15] LABS: INR 1.4; PT Patient Result 14.2 SECS
[2018-03-19 07:36] LABS: Calcium 6.7 MG/DL (8.5-10.1); Osmolality,Calculated 282.7 MOS/KG (273-304); Potassium 4.4 MMOL/L (3.5-5.1)
[2018-03-19] MEDS ORDERED: LIDOCAINE 2% 5 ML VIAL ONE (09:00)
[2018-03-19] MEDS ORDERED: PROPOFOL 200 MG/20 ML VIAL IV ONE (09:00)
[2018-03-19] MEDS ORDERED: PHENYLEPHRINE 1 MG/10 ML SYRINGE IV ONE (09:00)
[2018-03-19] MEDS: INSULIN REGULAR 100 UNIT/ML SUBCUT SCH ×3 (14:07→17:46)
[2018-03-19 14:25] VITALS: BP 129/72
[2018-03-19] MEDS: hydrOXYzine HCL 25 MG TABLET PO SCH (17:40)
[2018-03-19] MEDS: COLESTIPOL 1 GM TABLET PO SCH (17:40)
[2018-03-19] MEDS: SEVELAMER CARBONATE 800 MG TABLET PO SCH ×2 (17:40→17:45)
[2018-03-19] MEDS: CARVEDILOL 6.25 MG TABLET PO SCH (17:41)
[2018-03-19] MEDS: PYRIDOXINE 50 MG TABLET PO SCH (17:41)
[2018-03-19] MEDS: CINACALCET 30 MG TABLET PO SCH (17:41)
[2018-03-19] MEDS: ALLOPURINOL 100 MG TABLET PO SCH (17:41)
[2018-03-19] MEDS: DILTIAZEM CD 120 MG CAPSULE PO SCH (17:45)
== END 2018-03-19 18:38 | disposition home or self-care (01) | DRG 393 ==
LOC: N.ED 02:45 → SUATTDRO 05:40 → N.EDINP 05:40 → N.2W 08:18 → N.5E 13:00
PROVIDERS: ATTEND Internal Medicine

== ENCOUNTER 2018-08-13 06:18 | Inpatient (IN) ==
[2018-08-13 06:53] LABS: Basophils # 0.1 10*3/uL (0.0-0.2); Eosinophils # 0.2 10*3/uL (0.0-0.87); Eosinophils % 3.6 % (0.00-10.9); Hematocrit 33.2 VOL% (42.0-52.0); Hemoglobin 10.7 GM/DL (14.0-18.0); Immature Granulocytes % 0.3 %; Immature Granulocytes Absolute 0.02 #; Lymphocytes # 1.3 10*3/uL (1.4-4.0); Lymphocytes % 21.8 % (21.2-54.2); Mean Corpuscular HGB Conc 32.2 GM/DL (32-36); Mean Corpuscular Hemoglobin 29 PG (27-34); Mean Corpuscular Volume 90.2 FL (87-102); Mean Platelet Volume 10.3 FL (9.6-12.0); Monocytes # 0.5 10*3/uL (0.11-0.8); Monocytes % 7.9 % (1.7-12.7); Neutrophils # 3.8 10*3/uL (1.4-7.4); Neutrophils % 65.4 % (38.7-73.9); Platelet Count 168 T/CUMM (130-400); Red Blood Count 3.68 MC/CUMM (3.8-5.5); Red Cell Distribution Width 16.6 % (9.3-17.3); White Blood Count 5.8 T/CUMM (4-12)
[2018-08-13 07:06] LABS: Partial Thromboplastin Time 35.6 SECS (0-40)
[2018-08-13 07:11] LABS: INR 2.5
[2018-08-13 07:12] LABS: PT Patient Result 26.8 SECS
[2018-08-13 07:16] LABS: Apearance,Urine CLEAR (Clear); Bilirubin,Urine Negative (Negative); Blood, Urine Negative (Negative); Glucose,Urine (UA) 50 mg/dL (Negative); Ketones,Urine Negative (Negative); Nitrite,Urine Negative (Negative); Protein,Urine 100 MG/DL; RBC,Urine 1 /HPF (0-4); Sperm,Urine Occasional /HPF (Negative); Squamous Epithelial Cell,Urine Occasional /HPF (0-10); Urine Color Yellow (Yellow); Urine Specific Gravity 1.011 (1.001-1.035); Urine Urobilinogen < 2.0 EU/DL (0.2-1.0); WBC,Urine <1 /HPF (0-6)
[2018-08-13 07:22] LABS: Ammonia 172 UMOL/L (11-32)
[2018-08-13 07:26] LABS: Alanine Aminotransferase 19 U/L (16-61); Albumin 3.6 G/DL (3.4-5.0); Alkaline Phosphatase 214 U/L (45-117); Aspartate Amino Transferase 23 U/L (0-37); Blood Urea Nitrogen 58 MG/DL (7-18); Glucose 155 MG/DL (74-106); Osmolality,Calculated 293.7 MOS/KG (273-304); Potassium 4.1 MMOL/L (3.5-5.1); Sodium 138 MMOL/L (136-145); Total Protein 8.4 G/DL (6.4-8.3)
[2018-08-13 07:33] LABS: Barbiturates Screen,Urine Negative (Negative); Benzodiazepines Screen,Urine Negative (Negative); Cannabinoid Screen,Urine Negative (Negative); Opiate Screen,Urine Negative (Negative); Phencyclidine Screen,Urine Negative (Negative)
[2018-08-13] MEDS ORDERED: PROTHROMBIN COMPLEX IV ONE ×4 (08:05→10:30)
[2018-08-13] MEDS ORDERED: PHYTONADIONE 10 MG/1 ML AMP IV ONE (08:05)
[2018-08-13] MEDS ORDERED: SODIUM CHLORIDE 0.9% 1,000 ML IV PRN (08:05)
[2018-08-13] MEDS ORDERED: ONDANSETRON 4 MG/2 ML VIAL IV PRN (09:31)
[2018-08-13] MEDS ORDERED: ACETAMINOPHEN 325 MG TABLET PO PRN (09:31)
[2018-08-13] MEDS ORDERED: DEXTROSE 50% 25 GM/50 ML VIAL IV PRN (09:39)
[2018-08-13] MEDS ORDERED: GLUCAGON 1 MG VIAL IM PRN (09:39)
[2018-08-13] MEDS ORDERED: HALOPERIDOL 5 MG/ML AMP IV PRN (09:48)
[2018-08-13] MEDS ORDERED: ALBUTEROL 2.5 MG/3 ML NEB RESP TX PRN (09:48)
[2018-08-13] MEDS ORDERED: DEXTROSE 50% 25 GM/50 ML SYRINGE IV PRN (10:00)
[2018-08-13] MEDS ORDERED: cloNIDine 0.2 MG/24 HR PATCH TRANSDERM SCH (11:00)
[2018-08-13] MEDS: METOPROLOL TARTRATE 5 MG/5 ML VIAL IV PRN ×2 (12:02→17:26)
[2018-08-13] MEDS: PANTOPRAZOLE 40 MG VIAL IV SCH ×2 (12:49→21:11)
[2018-08-13] MEDS: INSULIN LISPRO 100 UNIT/ML SUBCUT SCH ×3 (12:50→20:45)
[2018-08-13] MEDS: LACTULOSE 20 GM/30 ML UDCUP PO SCH ×2 (12:50→17:26)
[2018-08-13] MEDS: LOSARTAN 50 MG TABLET PO SCH (12:50)
[2018-08-13] MEDS: ALLOPURINOL 100 MG TABLET PO SCH (12:50)
[2018-08-13] MEDS: CARVEDILOL 6.25 MG TABLET PO SCH ×2 (12:50→21:12)
[2018-08-13 14:21] LABS: Apearance,Urine CLEAR (Clear); Bilirubin,Urine Negative (Negative); Blood, Urine Small mg/dL (Negative); Glucose,Urine (UA) 50 mg/dL (Negative); Hyaline Casts,Urine 1 /LPF (0-3); Ketones,Urine Negative (Negative); Mucus,Urine Occasional /LPF (Occasional); Nitrite,Urine Negative (Negative); Protein,Urine 100 MG/DL; RBC,Urine 11 /HPF (0-4); Urine Color Yellow (Yellow); Urine Specific Gravity 1.012 (1.001-1.035); Urine Urobilinogen < 2.0 EU/DL (0.2-1.0); WBC,Urine 3 /HPF (0-6)
[2018-08-13 15:06] LABS: Hematocrit 32.2 VOL% (42.0-52.0); Hemoglobin 10.6 GM/DL (14.0-18.0)
[2018-08-13] MEDS: RIFAXIMIN 550 MG TABLET NG SCH (21:12)
[2018-08-13] MEDS: MINOXIDIL 10 MG TABLET PO SCH (21:12)
[2018-08-13 21:15] LABS: Hematocrit 30.8 VOL% (42.0-52.0)
[2018-08-13] MEDS: OFLOXACIN 0.3% LEFT EYE SCH (21:21)
[2018-08-13] MEDS: DIFLUPREDNATE 0.05% LEFT EYE SCH (21:21)
[2018-08-14] MEDS: LACTULOSE 20 GM/30 ML UDCUP PO SCH ×4 (00:48→17:05)
[2018-08-14 03:32] LABS: Hematocrit 27.1 VOL% (42.0-52.0); Hemoglobin 8.9 GM/DL (14.0-18.0)
[2018-08-14 03:34] LABS: Basophils # 0.1 10*3/uL (0.0-0.2); Basophils % 0.4 % (0.0-0.8); Eosinophils % 0.2 % (0.00-10.9); Hematocrit 27.6 VOL% (42.0-52.0); Immature Granulocytes Absolute 0.12 #; Lymphocytes # 1.2 10*3/uL (1.4-4.0); Lymphocytes % 9.3 % (21.2-54.2); Mean Corpuscular HGB Conc 32.6 GM/DL (32-36); Mean Corpuscular Hemoglobin 29 PG (27-34); Mean Platelet Volume 10.2 FL (9.6-12.0); Monocytes # 1.1 10*3/uL (0.11-0.8); Monocytes % 8.8 % (1.7-12.7); Neutrophils # 10.1 10*3/uL (1.4-7.4); Neutrophils % 80.3 % (38.7-73.9); Platelet Count 161 T/CUMM (130-400); Red Cell Distribution Width 16.2 % (9.3-17.3); White Blood Count 12.5 T/CUMM (4-12)
[2018-08-14 03:39] LABS: INR 1.3; Partial Thromboplastin Time 28.2 SECS (0-40)
[2018-08-14 03:52] LABS: Albumin 3.3 G/DL (3.4-5.0); Bilirubin,Total 1.6 MG/DL (0.2-1.0); Calcium 8.2 MG/DL (8.5-10.1); Osmolality,Calculated 289.7 MOS/KG (273-304); Potassium 3.5 MMOL/L (3.5-5.1); Total Protein 7.5 G/DL (6.4-8.3)
[2018-08-14] MEDS ORDERED: PROPOFOL 200 MG/20 ML VIAL IV ONE (07:39)
[2018-08-14] MEDS ORDERED: LIDOCAINE 2% 5 ML VIAL ONE (07:39)
[2018-08-14] MEDS ORDERED: ETOMIDATE 20 MG/10 ML VIAL IV ONE (07:39)
[2018-08-14] MEDS ORDERED: PANTOPRAZOLE 40 MG TABLET PO SCH (09:00)
[2018-08-14 09:09] LABS: Hematocrit 28.3 VOL% (42.0-52.0); Hemoglobin 8.9 GM/DL (14.0-18.0)
[2018-08-14] MEDS: INSULIN LISPRO 100 UNIT/ML SUBCUT SCH ×4 (09:12→20:24)
[2018-08-14] MEDS: PANTOPRAZOLE 40 MG VIAL IV SCH ×2 (10:02→22:09)
[2018-08-14] MEDS: DIFLUPREDNATE 0.05% LEFT EYE SCH ×2 (10:06→22:09)
[2018-08-14] MEDS: OFLOXACIN 0.3% LEFT EYE SCH ×2 (10:07→22:09)
[2018-08-14] MEDS: ALLOPURINOL 100 MG TABLET PO SCH (10:44)
[2018-08-14] MEDS: LOSARTAN 50 MG TABLET PO SCH (10:44)
[2018-08-14 11:33] LABS: ABG HCO3 26.2 MMOL/L (20-26); ABG Oxygen Saturation 96.2 % (95-100); ABG PCO2 30.8 MM HG (35-48); ABG PO2 96.7 MM HG (80-95); ABG TCO2 22.5 MMOL/L (23-27)
[2018-08-14] MEDS: CARVEDILOL 6.25 MG TABLET PO SCH ×2 (12:07→22:09)
[2018-08-14] MEDS: RIFAXIMIN 550 MG TABLET NG SCH ×2 (12:07→22:10)
[2018-08-14] MEDS: MINOXIDIL 10 MG TABLET PO SCH (22:09)
[2018-08-15 01:17] LABS: Basophils % 0.3 % (0.0-0.8); Eosinophils % 0.1 % (0.00-10.9); Hematocrit 25.3 VOL% (42.0-52.0); Hemoglobin 8.4 GM/DL (14.0-18.0); Immature Granulocytes % 1.2 %; Immature Granulocytes Absolute 0.17 #; Lymphocytes # 1.3 10*3/uL (1.4-4.0); Lymphocytes % 9.3 % (21.2-54.2); Mean Corpuscular HGB Conc 33.2 GM/DL (32-36); Mean Corpuscular Hemoglobin 30 PG (27-34); Mean Corpuscular Volume 90.4 FL (87-102); Mean Platelet Volume 10.3 FL (9.6-12.0); Monocytes # 1.3 10*3/uL (0.11-0.8); Monocytes % 8.7 % (1.7-12.7); Neutrophils # 11.7 10*3/uL (1.4-7.4); Neutrophils % 80.4 % (38.7-73.9); Platelet Count 151 T/CUMM (130-400); Red Cell Distribution Width 15.9 % (9.3-17.3); White Blood Count 14.5 T/CUMM (4-12)
[2018-08-15 01:24] LABS: INR 1.4; PT Patient Result 14.8 SECS
[2018-08-15] MEDS ORDERED: AMIODARONE INJ 150 MG in DEXTROSE 5% 100 ML IV ONE (01:28)
[2018-08-15] MEDS ORDERED: AMIODARONE INJ 450 MG in DEXTROSE 5% 241 ML IV SCH (01:30)
[2018-08-15] MEDS ORDERED: AMIODARONE 150 MG/3 ML VIAL ONE (01:30)
[2018-08-15 01:39] LABS: Albumin 2.8 G/DL (3.4-5.0); Bilirubin,Total 1.6 MG/DL (0.2-1.0); Calcium 7.7 MG/DL (8.5-10.1); Osmolality,Calculated 296.5 MOS/KG (273-304); Potassium 3.1 MMOL/L (3.5-5.1); Total Protein 6.8 G/DL (6.4-8.3)
[2018-08-15 01:47] LABS: Troponin I 0.178 NG/ML (0.00-0.045)
[2018-08-15 03:08] LABS: ABG Base Excess 1.1 MMOL/L (-2.5-2.5); ABG HCO3 25.4 MMOL/L (20-26); ABG Oxygen Saturation 97.2 % (95-100); ABG PCO2 28.8 MM HG (35-48); ABG PH 7.521 (7.35-7.45); ABG TCO2 21.8 MMOL/L (23-27)
[2018-08-15] MEDS ORDERED: METOPROLOL TARTRATE 5 MG/5 ML VIAL IV ONE (04:00)
[2018-08-15] MEDS: LACTULOSE 20 GM/30 ML UDCUP PO SCH ×4 (05:22→17:59)
[2018-08-15 05:42] LABS: Troponin I 0.199 NG/ML (0.00-0.045)
[2018-08-15 07:57] LABS: Troponin I 0.188 NG/ML (0.00-0.045)
[2018-08-15] MEDS ORDERED: cloNIDine 0.1 MG/24 HR PATCH TRANSDERM SCH (09:00)
[2018-08-15] MEDS: RIFAXIMIN 550 MG TABLET NG SCH ×2 (09:34→21:31)
[2018-08-15] MEDS: LOSARTAN 50 MG TABLET PO SCH (09:34)
[2018-08-15] MEDS: ALLOPURINOL 100 MG TABLET PO SCH (09:34)
[2018-08-15] MEDS: CARVEDILOL 12.5 MG TABLET PO SCH ×2 (09:35→21:32)
[2018-08-15] MEDS: PANTOPRAZOLE 40 MG VIAL IV SCH ×2 (09:35→21:32)
[2018-08-15] MEDS: DILTIAZEM 30 MG TABLET PO SCH ×3 (09:37→18:00)
[2018-08-15] MEDS: INSULIN LISPRO 100 UNIT/ML SUBCUT SCH ×4 (09:46→20:38)
[2018-08-15] MEDS: DIFLUPREDNATE 0.05% LEFT EYE SCH ×2 (09:48→21:31)
[2018-08-15 10:28] LABS: Troponin I 0.179 NG/ML (0.00-0.045)
[2018-08-16] MEDS: LACTULOSE 20 GM/30 ML UDCUP PO SCH ×4 (00:18→18:53)
[2018-08-16] MEDS: DILTIAZEM 30 MG TABLET PO SCH ×4 (00:18→18:53)
[2018-08-16] MEDS ORDERED: MORPHINE 4 MG/1 ML VIAL IV PRN (02:16)
[2018-08-16] MEDS ORDERED: MORPHINE 4 MG/1 ML VIAL ONE (02:19)
[2018-08-16 03:15] LABS: ABG Base Excess 2.2 MMOL/L (-2.5-2.5); ABG HCO3 26.4 MMOL/L (20-26); ABG Oxygen Saturation 98.2 % (95-100); ABG PH 7.465 (7.35-7.45); ABG TCO2 24.2 MMOL/L (23-27)
[2018-08-16] MEDS ORDERED: SODIUM CHLORIDE 0.9% 250 ML IV ONE ×2 (03:41→11:29)
[2018-08-16 04:47] LABS: Basophils # 0.1 10*3/uL (0.0-0.2); Basophils % 0.4 % (0.0-0.8); Eosinophils # 0.2 10*3/uL (0.0-0.87); Eosinophils % 1.3 % (0.00-10.9); Hematocrit 23.2 VOL% (42.0-52.0); Hemoglobin 7.5 GM/DL (14.0-18.0); Immature Granulocytes % 5.3 %; Immature Granulocytes Absolute 0.67 #; Lymphocytes # 1.2 10*3/uL (1.4-4.0); Lymphocytes % 9.4 % (21.2-54.2); Mean Corpuscular HGB Conc 32.3 GM/DL (32-36); Mean Corpuscular Hemoglobin 30 PG (27-34); Mean Corpuscular Volume 92.1 FL (87-102); Mean Platelet Volume 10.9 FL (9.6-12.0); Monocytes # 1.3 10*3/uL (0.11-0.8); Neutrophils # 9.3 10*3/uL (1.4-7.4); Neutrophils % 73.6 % (38.7-73.9); Platelet Count 136 T/CUMM (130-400); Red Blood Count 2.52 MC/CUMM (3.8-5.5); Red Cell Distribution Width 15.1 % (9.3-17.3); White Blood Count 12.6 T/CUMM (4-12)
[2018-08-16] MEDS ORDERED: SODIUM CHLORIDE 0.9% 1,000 ML IV PRN ×2 (05:11→09:01)
[2018-08-16 05:17] LABS: Calcium 7.6 MG/DL (8.5-10.1); Osmolality,Calculated 293.4 MOS/KG (273-304); Potassium 2.7 MMOL/L (3.5-5.1)
[2018-08-16] MEDS ORDERED: POTASSIUM CHLORIDE 10 MEQ TABLET PO ONE (05:45)
[2018-08-16 07:04] LABS: Band Neutrophils 2 % (0-10); Eosinophils 2 % (0-10); Hypochromasia 1+; Lymphocytes 5 % (20-55); Microcytosis 1+; Segmented Neutrophils 80 % (50-85); Total Cells Counted 100
[2018-08-16 07:05] LABS: Ovalocytes Slight; Platelet Estimate Adequate
[2018-08-16] MEDS: RIFAXIMIN 550 MG TABLET NG SCH ×2 (09:14→21:13)
[2018-08-16] MEDS: ALLOPURINOL 100 MG TABLET PO SCH (09:14)
[2018-08-16] MEDS: PANTOPRAZOLE 40 MG VIAL IV SCH ×2 (09:14→21:12)
[2018-08-16] MEDS: CARVEDILOL 12.5 MG TABLET PO SCH ×2 (09:14→21:13)
[2018-08-16] MEDS: INSULIN LISPRO 100 UNIT/ML SUBCUT SCH ×4 (09:15→21:12)
[2018-08-16] MEDS: DIFLUPREDNATE 0.05% LEFT EYE SCH ×2 (09:15→21:11)
[2018-08-16] MEDS: CLOTRIMAZOLE 1% CREAM 15 GM TUBE TOP SCH ×2 (12:49→21:11)
[2018-08-17] MEDS: DILTIAZEM 30 MG TABLET PO SCH ×4 (01:30→18:38)
[2018-08-17] MEDS: LACTULOSE 20 GM/30 ML UDCUP PO SCH ×3 (02:51→12:21)
[2018-08-17 04:24] LABS: ABG Base Excess -1.9 MMOL/L (-2.5-2.5); ABG HCO3 22.7 MMOL/L (20-26); ABG Oxygen Saturation 93.7 % (95-100); ABG PCO2 41.9 MM HG (35-48); ABG PH 7.356 (7.35-7.45); ABG PO2 82.8 MM HG (80-95); Allen Test Positive; Pt O2 Delivery Device BIPAP
[2018-08-17 05:26] LABS: Calcium 8.1 MG/DL (8.5-10.1); Osmolality,Calculated 297.4 MOS/KG (273-304); Potassium 2.6 MMOL/L (3.5-5.1)
[2018-08-17 05:31] LABS: Basophils % 0.2 % (0.0-0.8); Eosinophils % 0.3 % (0.00-10.9); Hematocrit 24.3 VOL% (42.0-52.0); Hemoglobin 7.6 GM/DL (14.0-18.0); Immature Granulocytes % 5.5 %; Immature Granulocytes Absolute 0.87 #; Lymphocytes # 1.3 10*3/uL (1.4-4.0); Lymphocytes % 8.2 % (21.2-54.2); Mean Corpuscular HGB Conc 31.3 GM/DL (32-36); Mean Corpuscular Hemoglobin 29 PG (27-34); Mean Corpuscular Volume 92.7 FL (87-102); Mean Platelet Volume 10.9 FL (9.6-12.0); Monocytes # 1.8 10*3/uL (0.11-0.8); Monocytes % 11.3 % (1.7-12.7); Neutrophils # 11.8 10*3/uL (1.4-7.4); Neutrophils % 74.5 % (38.7-73.9); Platelet Count 176 T/CUMM (130-400); Red Blood Count 2.62 MC/CUMM (3.8-5.5); White Blood Count 15.8 T/CUMM (4-12)
[2018-08-17 06:35] LABS: Band Neutrophils 4 % (0-10); Lymphocytes 6 % (20-55); Segmented Neutrophils 84 % (50-85); Total Cells Counted 100
[2018-08-17 06:37] LABS: Anisocytosis 1+; Platelet Estimate Adequate
[2018-08-17] MEDS: INSULIN LISPRO 100 UNIT/ML SUBCUT SCH ×4 (08:37→18:39)
[2018-08-17] MEDS: PANTOPRAZOLE 40 MG VIAL IV SCH ×2 (11:16→21:05)
[2018-08-17] MEDS: CARVEDILOL 12.5 MG TABLET PO SCH ×2 (11:16→21:05)
[2018-08-17] MEDS: DIFLUPREDNATE 0.05% LEFT EYE SCH ×2 (11:16→21:08)
[2018-08-17] MEDS: CLOTRIMAZOLE 1% CREAM 15 GM TUBE TOP SCH ×2 (11:16→21:09)
[2018-08-17] MEDS: RIFAXIMIN 550 MG TABLET NG SCH ×2 (11:17→21:05)
[2018-08-17] MEDS: ALLOPURINOL 100 MG TABLET PO SCH (11:17)
[2018-08-17] MEDS ORDERED: POTASSIUM CHLORIDE 20 MEQ/15 ML UDCUP PER TUBE ONE (14:23)
[2018-08-18] MEDS: DILTIAZEM 30 MG TABLET PO SCH ×4 (00:34→19:04)
[2018-08-18] MEDS: INSULIN LISPRO 100 UNIT/ML SUBCUT SCH ×5 (00:35→23:28)
[2018-08-18 03:59] LABS: Basophils % 0.3 % (0.0-0.8); Eosinophils % 0.2 % (0.00-10.9); Hematocrit 28.3 VOL% (42.0-52.0); Hemoglobin 9.7 GM/DL (14.0-18.0); Immature Granulocytes % 2.5 %; Immature Granulocytes Absolute 0.38 #; Lymphocytes # 1.1 10*3/uL (1.4-4.0); Lymphocytes % 7.5 % (21.2-54.2); Mean Corpuscular HGB Conc 34.3 GM/DL (32-36); Mean Corpuscular Hemoglobin 31 PG (27-34); Mean Corpuscular Volume 89.3 FL (87-102); Monocytes # 1.6 10*3/uL (0.11-0.8); Monocytes % 10.7 % (1.7-12.7); NRBC # 0.07 10*3/uL; Neutrophils # 11.9 10*3/uL (1.4-7.4); Neutrophils % 78.8 % (38.7-73.9); Platelet Count 196 T/CUMM (130-400); Red Blood Count 3.17 MC/CUMM (3.8-5.5); Red Cell Distribution Width 15.3 % (9.3-17.3); White Blood Count 15.1 T/CUMM (4-12)
[2018-08-18 04:23] LABS: Calcium 8.1 MG/DL (8.5-10.1); Osmolality,Calculated 293.5 MOS/KG (273-304); Potassium 2.9 MMOL/L (3.5-5.1)
[2018-08-18 04:51] LABS: ABG Base Excess 1.7 MMOL/L (-2.5-2.5); ABG HCO3 25.5 MMOL/L (20-26); ABG Oxygen Saturation 95.8 % (95-100); ABG PCO2 36.8 MM HG (35-48); ABG PH 7.459 (7.35-7.45); ABG PO2 95.1 MM HG (80-95); ABG TCO2 26.7 MMOL/L (23-27); Allen Test Positive; Pt O2 Delivery Device BIPAP
[2018-08-18] MEDS: LACTULOSE 20 GM/30 ML UDCUP PO SCH ×2 (08:18→21:57)
[2018-08-18] MEDS: PANTOPRAZOLE 40 MG VIAL IV SCH ×2 (08:18→21:53)
[2018-08-18] MEDS: RIFAXIMIN 550 MG TABLET NG SCH ×2 (08:18→21:57)
[2018-08-18] MEDS: ALLOPURINOL 100 MG TABLET PO SCH (08:18)
[2018-08-18] MEDS: DIFLUPREDNATE 0.05% LEFT EYE SCH ×2 (08:19→22:45)
[2018-08-18] MEDS: CLOTRIMAZOLE 1% CREAM 15 GM TUBE TOP SCH ×2 (08:19→21:58)
[2018-08-18 10:51] LABS: INR 1.7; PT Patient Result 17.9 SECS
[2018-08-18] MEDS: FLUCONAZOLE 40 MG/ML 35 ML/BOTTLE PO SCH (12:00)
[2018-08-18] MEDS: CARVEDILOL 12.5 MG TABLET PO SCH ×2 (12:13→21:57)
[2018-08-18] MEDS ORDERED: MIDAZOLAM 10 MG/2 ML VIAL ONE (12:20)
[2018-08-18] MEDS: ENOXAPARIN 30 MG/0.3 ML SYRINGE SUBCUT SCH (13:25)
[2018-08-18] MEDS: BACITRACIN OINT 0.9 GM PACK TOP SCH (21:57)
[2018-08-19] MEDS: DILTIAZEM 30 MG TABLET PO SCH ×3 (02:00→13:40)
[2018-08-19 03:45] LABS: Allen Test Positive; Pt O2 Delivery Device BIPAP
[2018-08-19 03:49] LABS: ABG HCO3 24.3 MMOL/L (20-26); ABG Oxygen Saturation 85.5 % (95-100); ABG PCO2 44.2 MM HG (35-48); ABG PH 7.369 (7.35-7.45); ABG PO2 57.3 MM HG (80-95); ABG TCO2 23.4 MMOL/L (23-27)
[2018-08-19 05:26] LABS: Basophils # 0.1 10*3/uL (0.0-0.2); Basophils % 0.3 % (0.0-0.8); Eosinophils # 0.1 10*3/uL (0.0-0.87); Eosinophils % 0.3 % (0.00-10.9); Hematocrit 28.5 VOL% (42.0-52.0); Hemoglobin 9.2 GM/DL (14.0-18.0); Immature Granulocytes % 7.3 %; Immature Granulocytes Absolute 1.29 #; Lymphocytes # 1.5 10*3/uL (1.4-4.0); Lymphocytes % 8.6 % (21.2-54.2); Mean Corpuscular HGB Conc 32.3 GM/DL (32-36); Mean Corpuscular Hemoglobin 29 PG (27-34); Mean Corpuscular Volume 89.6 FL (87-102); Mean Platelet Volume 11.4 FL (9.6-12.0); Monocytes % 11.6 % (1.7-12.7); NRBC # 0.17 10*3/uL; Neutrophils # 12.7 10*3/uL (1.4-7.4); Neutrophils % 71.9 % (38.7-73.9); Platelet Count 212 T/CUMM (130-400); Red Blood Count 3.18 MC/CUMM (3.8-5.5); Red Cell Distribution Width 15.4 % (9.3-17.3); White Blood Count 17.7 T/CUMM (4-12)
[2018-08-19 05:45] LABS: Albumin 2.2 G/DL (3.4-5.0); Calcium 8.4 MG/DL (8.5-10.1); Osmolality,Calculated 299.8 MOS/KG (273-304); Potassium 3.2 MMOL/L (3.5-5.1); Total Protein 6.9 G/DL (6.4-8.3)
[2018-08-19 05:47] LABS: Prealbumin 3.6 MG/DL (20-40)
[2018-08-19 07:03] VITALS: BP 96/40
[2018-08-19] MEDS: INSULIN LISPRO 100 UNIT/ML SUBCUT SCH ×3 (07:21→18:23)
[2018-08-19 07:46] LABS: ABG Base Excess 0.8 MMOL/L (-2.5-2.5); ABG HCO3 24.9 MMOL/L (20-26); ABG Oxygen Saturation 83.6 % (95-100); ABG PCO2 43.5 MM HG (35-48); ABG PH 7.385 (7.35-7.45); ABG PO2 53.7 MM HG (80-95); ABG TCO2 23.6 MMOL/L (23-27)
[2018-08-19] MEDS ORDERED: PIPERACILLIN/TAZOBACTAM 3,375 MG in SODIUM CHLORIDE 0.9% 100 ML IV SCH (09:00)
[2018-08-19 09:14] LABS: Band Neutrophils 8 % (0-10); Lymphocytes 1 % (20-55); Segmented Neutrophils 86 % (50-85); Total Cells Counted 100
[2018-08-19 09:15] LABS: Hypochromasia 1+; Ovalocytes Few; Platelet Estimate Normal; Polychromasia Slight
[2018-08-19 09:33] LABS: Vitamin B12 1185 PG/ML (211-911)
[2018-08-19] MEDS: ENOXAPARIN 30 MG/0.3 ML SYRINGE SUBCUT SCH (10:45)
[2018-08-19] MEDS: LACTULOSE 20 GM/30 ML UDCUP PO SCH (10:49)
[2018-08-19] MEDS: PANTOPRAZOLE 40 MG VIAL IV SCH (10:49)
[2018-08-19] MEDS: CARVEDILOL 12.5 MG TABLET PO SCH (10:50)
[2018-08-19] MEDS: ALLOPURINOL 100 MG TABLET PO SCH (10:50)
[2018-08-19] MEDS: RIFAXIMIN 550 MG TABLET NG SCH (10:50)
[2018-08-19] MEDS: FLUCONAZOLE 40 MG/ML 35 ML/BOTTLE PO SCH (10:50)
[2018-08-19] MEDS: DIFLUPREDNATE 0.05% LEFT EYE SCH (10:52)
[2018-08-19] MEDS: BACITRACIN OINT 0.9 GM PACK TOP SCH ×2 (10:53→16:04)
[2018-08-19] MEDS ORDERED: NOREPINEPHRINE 4 MG/4 ML VIAL IV ONE (10:58)
[2018-08-19] MEDS: NOREPINEPHRINE 8 MG in SODIUM CHLORIDE 0.9% 242 ML IV PRN ×2 (11:02→20:14)
[2018-08-19] MEDS ORDERED: ENOXAPARIN 120 MG/0.8 ML SYRINGE SUBCUT SCH (14:12)
[2018-08-19] MEDS ORDERED: DILTIAZEM 25 MG/5 ML VIAL IV ONE (15:15)
[2018-08-19] MEDS ORDERED: DIGOXIN 0.5 MG/2 ML AMP IV ONE (15:48)
[2018-08-19] MEDS ORDERED: ENOXAPARIN 30 MG/0.3 ML SYRINGE SUBCUT SCH (15:52)
[2018-08-19] MEDS ORDERED: METOPROLOL TARTRATE 5 MG/5 ML VIAL IV ONE ×4 (16:21→16:59)
[2018-08-19] MEDS ORDERED: METOPROLOL TARTRATE 50 MG TABLET ONE (16:29)
[2018-08-19] MEDS ORDERED: SODIUM CHLORIDE 0.9% 250 ML IV ONE (16:46)
[2018-08-19] MEDS ORDERED: METOPROLOL TARTRATE 50 MG TABLET PO SCH ×2 (16:52→21:00)
[2018-08-19] MEDS ORDERED: PHENYLEPHRINE DRIP 40 MG/250 ML PREMIX IV PRN (16:58)
[2018-08-19] MEDS ORDERED: PHENYLEPHRINE INJ 160 MG in SODIUM CHLORIDE 0.9% 234 ML IV PRN (20:12)
[2018-08-19] MEDS ORDERED: ETOMIDATE 20 MG/10 ML VIAL IV ONE ×2 (20:33→20:43)
[2018-08-19] MEDS ORDERED: SUCCINYLCHOLINE 200 MG/10 ML VIAL ONE (20:33)
[2018-08-19] MEDS ORDERED: VANCOMYCIN INJ 750 MG in SODIUM CHLORIDE 0.9% 250 ML IV ONE (21:00)
[2018-08-19 21:24] LABS: ABG Oxygen Saturation 7.1 % (95-100); ABG PH 7.091 (7.35-7.45); ABG TCO2 21.6 MMOL/L (23-27)
[2018-08-19 21:25] LABS: ABG PCO2 72.3 MM HG (35-48)
[2018-08-19 21:26] LABS: ABG PO2 14.3 MM HG (80-95)
[2018-08-20] MEDS ORDERED: EPINEPHrine 1 MG/ML VIAL ONE (00:36)
[2018-08-20] MEDS ORDERED: CALCIUM CHLORIDE 1,000 MG/10 ML SYRINGE IV ONE (00:36)
[2018-08-20] MEDS ORDERED: SODIUM BICARBONATE 50 MEQ/50 ML SYRINGE IV ONE (00:36)
== END 2018-08-19 21:38 | disposition expired | DRG 441 ==
LOC: EDUNIT# → SUATTDRO → EDBD → N.ED 06:18 → N.EDINP 08:59 → SUATTDRO 08:59 → N.ICU 09:39
PROVIDERS: ADMIT Internal Medicine; ATTEND Internal Medicine